=== PATIENT | female | born 1985 | race Caucasian/White ===

== ENCOUNTER 2017-10-02 22:12 | Inpatient (IN) | payer MEDICAID ==
[2017-10-03] MEDS ORDERED: Sodium Chloride 0.9% 10 ML Syringe FLUSH PRN (00:34)
[2017-10-03] MEDS ORDERED: Oxytocin/Lactated Ringers 10 UNIT/1,000 ML BAG IV SCH ×2 (00:45→05:30)
[2017-10-03] MEDS ORDERED: Nalbuphine 20 MG/1 ML Amp IVPUSH PRN (03:10)
[2017-10-03] MEDS ORDERED: Lidocaine 1% 50 ML MDV INJECT ONE (03:10)
[2017-10-03] MEDS ORDERED: Ondansetron 4 MG/2 ML SDV IVPUSH PRN ×2 (03:10→07:42)
[2017-10-03] MEDS: Lactated Ringers 1,000 ML IV SCH ×2 (05:29→13:00)
[2017-10-03] MEDS ORDERED: diphenhydrAMINE 50 MG/ML SDV IVPUSH PRN (07:42)
[2017-10-03] MEDS ORDERED: fentaNYL 100 MCG/2 ML SDV EPIDUR PRN (07:42)
[2017-10-03] MEDS ORDERED: ePHEDrine 50 MG/ML SDV IVPUSH PRN (07:42)
[2017-10-03] MEDS ORDERED: Bupivacaine/fentaNYL/NS 100 ML Bag EPIDUR SCH (07:45)
--- NOTE | 2017-10-03 08:52 | PCM.PREANE ---
Preanesthetic Assessment - Anesthesia/Transfusion/Family Hx Anesthesia History: Prior Anesthesia Without Reaction Family History of Anesthesia Reaction: No Transfusion History: No Prior Transfusion(s) - Review of Systems General: No Symptoms Pulmonary: No Symptoms Cardiovascular: No Symptoms Gastrointestinal: No Symptoms Neurological: No Symptoms Other: Reports: Diabetes (Gestational) - Physical Assessment Pulse: 89 O2 Sat by Pulse Oximetry: 98 Respiratory Rate: 16 Blood Pressure: 131/80 Vital Signs: Last Vital Signs Temp 36.6 C 10/03/17 00:24 Pulse 89 10/03/17 08:34 Resp 16 10/03/17 00:24 BP 131/80 10/03/17 08:34 Pulse Ox 98 10/03/17 00:24 Height: 1.73 m Weight: 101.605 kg ASA Class: 2 Mental Status: Alert & Oriented x3 Airway Class: Mallampati = 2 Dentition: Reports: Normal Dentition Thyro-Mental Finger Breadths: 3 Mouth Opening Finger Breadths: 2 ROM/Head Extension: Full Lungs: Clear to Auscultation, Normal Respiratory Effort Cardiovascular: Regular Rate, Regular Rhythm - Lab Values: Laboratory Last Values WBC 14.74 K/mm3 (3.98-10.04) H 10/03/17 00:35 RBC 4.44 M/mm3 (3.98-5.22) 10/03/17 00:35 Hgb 12.3 gm/L (11.2-15.7) 18 00:35 Hct 37.3 % (34.1-44.9) 10/03/17 00:35 MCV 84.0 fl (79.4-94.8) 10/03/17 00:35 MCH 27.7 pg (25.6-32.2) 10/03/17 00:35 MCHC 33.0 g/dl (32.2-35.5) 10/03/17 00:35 RDW Std Deviation 44.1 fL (36.4-46.3) 10/03/17 00:35 Plt Count 275 K/mm3 (182-369) 10/03/17 00:35 MPV 10.4 fl (9.4-12.3) 10/03/17 00:35 Neut % (Auto) 76.5 % (34.0-71.1) H 10/03/17 00:35 Lymph % (Auto) 15.0 % (19.3-51.7) L 10/03/17 00:35 Leake % (Auto) 7.3 % (4.7-12.5) 10/03/17 00:35 Eos % (Auto) 0.5 (0.7-5.8) L 10/03/17 00:35 Baso % (Auto) 0.1 % (0.1-1.2) 10/03/17 00:35 Neut # (Auto) 11.27 K/mm3 (1.56-6.13) H 10/03/17 00:35 Lymph # (Auto) 2.21 K/mm3 (1.18-3.74) 10/03/17 00:35 Leake # (Auto) 1.08 K/mm3 (0.24-0.36) H 10/03/17 00:35 Eos # (Auto) 0.07 K/mm3 (0.04-0.36) 10/03/17 00:35 Baso # (Auto) 0.02 K/mm3 (0.01-0.08) 10/03/17 00:35 BUN 10 mg/dL (7-18) 10/03/17 00:35 Creatinine 0.7 mg/dL (0.55-1.02) 10/03/17 00:35 Est Cr Clr Drug Dosing 116.39 mL/min 10/03/17 00:35 Estimated GFR (MDRD) > 60 mL/min (>60) 10/03/17 00:35 Glucose 84 mg/dL (74-106) 10/03/17 00:35 Uric Acid 3.7 mg/dL (2.6-6.0) 10/03/17 00:35 AST 12 U/L (15-37) L 10/03/17 00:35 ALT 18 U/L (14-59) 10/03/17 00:35 Lactate Dehydrogenase 154 U/L (81-234) 10/03/17 00:35 Urine Color Yellow (Yellow) 10/03/17 04:30 Urine Appearance Clear (Clear) 10/03/17 04:30 Urine pH 6.0 (5.0-8.0) 10/03/17 04:30 Ur Specific [place] 1.010 (1.005-1.030) 10/03/17 04:30 Urine Protein Negative (Negative) 10/03/17 04:30 Urine Glucose (UA) Negative (Negative) 10/03/17 04:30 Urine Ketones Negative (Negative) 10/03/17 04:30 Urine Occult Blood Negative (Negative) 10/03/17 04:30 Urine Nitrite Negative (Negative) 10/03/17 04:30 Urine Bilirubin Negative (Negative) 10/03/17 04:30 Urine Urobilinogen 0.2 (0.2-1.0) 10/03/17 04:30 Ur Leukocyte Esterase Negative (Negative) 10/03/17 04:30 Urine RBC 0-5 /hpf (0-5) 10/03/17 04:30 Urine WBC 0-5 /hpf (0-5) 10/03/17 04:30 Ur Epithelial Cells 0-5 /hpf (0-5) 10/03/17 04:30 Amorphous Sediment Few /hpf (NOT SEEN) H 10/03/17 04:30 Urine Bacteria Few /hpf (FEW) 10/03/17 04:30 Urine Mucus Not seen /hpf (FEW) 10/03/17 04:30 Blood Type A POSITIVE 10/03/17 00:35 Gel Antibody Screen Negative 10/03/17 00:35 - Allergies Allergies/Adverse Reactions: Allergies Allergy/AdvReac Type Severity Reaction Status Date / Time No Known Allergies Allergy Verified 10/03/17 00:23 - Acknowledgements Anesthesia Type Planned: Epidural Pt an Appropriate Candidate for the Planned Anesthesia: Yes Alternatives and Risks of Anesthesia Discussed w Pt/Guardian: Yes Pt/Guardian Understands and Agrees with Anesthesia Plan: Yes PreAnesthesia Questionnaire HEENT History: Reports: Impaired Vision LEAVE SPECIALIST History: Reports: Endocrine/Metabolic History: Reports: Diabetes, Gestational - Past Surgical History Other HEENT Surgeries/Procedures: Pt wears Glasses Other Cardiovascular Surgeries/Procedures: Gestational HTN Other GI Surgeries/Procedures: Pt has had Polyps removed from her intestines in 2015 Endocrine Surgical History: Reports: None - SUBSTANCE USE Smoking Status *Q: Never Smoker Second Hand Smoke Exposure: No Recreational Drug Use History: No - HOME MEDS Home Medications: Home Meds Aspirin 81 mg PO DAILY 10/03/17 [History] Nph, Human Insulin Isophane [HumuLIN N] 10 unit SQ ACBREAKFASTANDBED 10/03/17 [ History] PNV95/Ferrous Fumarate/FA [Prenavite Tablet] 1 each PO DAILY 10/03/17 [History] - CURRENT (IN HOUSE) MEDS Current Meds: Current Medications Diphenhydramine HCl (Benadryl) 25 mg IVPUSH Q6H PRN PRN Reason: Pruritis Ephedrine Sulfate (Ephedrine Sulfate) 5 mg IVPUSH ASDIRECTED PRN PRN Reason: Hypotension Fentanyl (Sublimaze) 100 mcg EPIDUR ONETIME PRN PRN Reason: Pain Fentanyl/Bupivacaine HCl (Fentanyl/Bupivacaine/Ns 2 Mcg-0.125% 100 Ml) 100 ml EPIDUR ASDIRECTED [place] Lactated Ringer's (Ringers, Lactated) 1,000 mls @ 100 mls/hr IV ASDIRECTED [place] Last Admin: 10/03/17 05:29 Dose: 100 mls/hr Oxytocin/Lactated Ringer's (Pitocin In Lr 10 Units/1,000 Ml) 10 unit in 1,000 mls @ 500 mls/hr IV .CONTINUOUS [place] Oxytocin/Lactated Ringer's (Pitocin In Lr 10 Units/1,000 Ml) 10 unit in 1,000 mls @ 12 mls/hr IV TITRATE [place]; 2 MUNITS/MIN PRN Reason: Protocol Last Titration: 10/03/17 08:39 Dose: 10 munits/min, 60 mls/hr Nalbuphine HCl (Nubain) 10 mg IVPUSH Q2H PRN PRN Reason: Pain (moderate 4-6) Ondansetron HCl (Zofran) 4 mg IVPUSH Q4H PRN PRN Reason: Nausea/Vomiting Ondansetron HCl (Zofran) 4 mg IVPUSH ONETIME PRN PRN Reason: Nausea/Vomiting Sodium Chloride (Saline Flush) 10 ml FLUSH ASDIRECTED PRN PRN Reason: Keep Vein Open Discontinued Medications Lidocaine HCl (Xylocaine 1%) 1 ml INJECT ONETIME ONE Stop: 10/03/17 03:11
--- NOTE | 2017-10-03 15:41 | PCM.SN ---
- Free Text/Narrative Note: Lisbeth is a 32-year-old 2 para 2002 white female who is admitted last night with a 37-6/7 week intrauterine , hypertension, labor, gestational diabetes treated with instrument 1 and history of previous section. She is a patient of Dr. Seth in [place] but is living in [place]. She decided to stay here for her labor and delivery as her doctor was not conventional mortgage underwriter in [place] and living in [place] worked better for her. She lives with her mother here in [place]. Came in with concerns of contractions and labor. Upon admission she was noted to have blood pressures in the 160s over 95-105 range. Laboratory testing was unremarkable for preeclampsia. Diagnosis is most probably gestational hypertension. Blood sugar was 84. Patient progressed slowly through labor she had artificial rupture membranes as a.m. and progressed to complete by approximately 1400 hrs. She had an epidural in place for labor analgesia. She pushed for approximately an hour and at 1510 hrs. on 10/03/2017 she delivered a viable, valencia, female infant with Apgars of 8 and 9, a weight of 2490 g (6 lbs. 8 oz.), a length of 19 inches, in a direct occiput anterior position. This placed on mom's abdomen and the bulb suction. The cord was clamped 2 and cut by the patient's mother. She had Pitocin given IV after delivery of the baby to facilitate increase and reduce risk of uterine bleeding. The patient had a second-degree laceration which was repaired in a routine fashion using 3-0 Monocryl. Epidural was used for anesthesia. Placenta delivered in a Toure presentation, appeared intact and complete and was discarded per patient desire. Estimated blood loss was 200 mL. Condition: Good. Patient plans to breast-feed.
[2017-10-03] MEDS ORDERED: Benzocaine/Menthol 20%-0.5% Spray 56 GM Canister TOP PRN (17:45)
[2017-10-03] MEDS ORDERED: Acetaminophen 325 MG Tab PO PRN (17:45)
[2017-10-03] MEDS ORDERED: Lanolin 100% Cream 7 GM Tube TOP PRN (17:45)
[2017-10-03] MEDS ORDERED: Witch Hazel Medicated Pads 100/Jar TOP PRN (17:45)
[2017-10-03] MEDS ORDERED: Docusate Sodium 100 MG Cap PO PRN (17:45)
[2017-10-03] MEDS: Ibuprofen 600 MG Tab PO PRN (20:57)
--- NOTE | 2017-10-04 08:22 | PCM.SN ---
- Free Text/Narrative Note: Subjective: Patient reports her pain is well controlled this AM. She is able to void and ambulate without assistance. Objective: Patient is afebrile this AM, her vital signs are stable and the uterus is slightly below the level of the umbilicus Assessment: Post- day 1 Plan: Routine care will be provided and an Hemoglobin level will be taken later today.
[2017-10-04] MEDS: Prenatal Multivitamin with Calcium/Folic Acid/Iron Tab PO SCH (09:24)
--- NOTE | 2017-10-04 15:22 | PCM48HPAN ---
Post Anesthesia Note - EVALUATION WITHIN 48HRS OF ANESTHETIC Vital Signs in Normal Range: Yes Patient Participated in Evaluation: Yes Respiratory Function Stable: Yes Airway Patent: Yes Cardiovascular Function Stable: Yes Hydration Status Stable: Yes Pain Control Satisfactory: Yes Nausea and Vomiting Control Satisfactory: Yes Mental Status Recovered: Yes Pulse Rate: 88 Resp Rate: 16 Temperature: 37.3 C Blood Pressure: 137/93
[2017-10-04] MEDS: Ibuprofen 600 MG Tab PO PRN (21:17)
--- NOTE | 2017-10-05 04:38 | PCM.DCSUM1 ---
Discharge Summary - Hospital Course Free Text/Narrative:: Lisbeth is a 32-year-old 2 para 2002 white female who is admitted last night with a 37-6/7 week intrauterine , hypertension, labor, gestational diabetes treated with instrument 1 and history of previous section. She is a patient of Dr. Seth in [place] but is living in [place]. She decided to stay here for her labor and delivery as her doctor was not industrial relations officer in [place] and living in [place] worked better for her. She lives with her mother here in [place]. Came in with concerns of contractions and labor. Upon admission she was noted to have blood pressures in the 160s over 95-105 range. Laboratory testing was unremarkable for preeclampsia. Diagnosis is most probably gestational hypertension. Blood sugar was 84. Patient progressed slowly through labor she had artificial rupture membranes as a.m. and progressed to complete by approximately 1400 hrs. She had an epidural in place for labor analgesia. She pushed for approximately an hour and at 1510 hrs. on 10/03/2017 she delivered a viable, valencia, female infant with Apgars of 8 and 9, a weight of 2490 g (6 lbs. 8 oz.), a length of 19 inches, in a direct occiput anterior position. This placed on mom's abdomen and the bulb suction. The cord was clamped 2 and cut by the patient's mother. She had Pitocin given IV after delivery of the baby to facilitate increase and reduce risk of uterine bleeding. The patient had a second-degree laceration which was repaired in a routine fashion using 3-0 Monocryl. Epidural was used for anesthesia. Placenta delivered in a Toure presentation, appeared intact and complete and was discarded per patient desire. Estimated blood loss was 200 mL. Patient plans to breast-feed. patient is done reasonably well. She is nursing without problems, voiding well and ambulating well. senior director creative services consult was obtained because of patient's social situation. She is discharged home today per her desire. - Discharge Data Discharge Date: 10/05/17 Discharge Disposition: DC/[facility] Condition: Good - Patient Instructions Diet: Regular Diet as Tolerated (Nursing diet with increased calcium and calories as directed.) Activity: As Tolerated (No intercourse or tampons until bleeding resolves) Driving: May Drive Today Showering/Bathing: May Shower (May take a bath) Notify Provider of: Fever, Increased Pain, Swelling and Redness, Nausea and/or Vomiting - Discharge Plan Home Medications: Home Meds Aspirin 81 mg PO DAILY 10/03/17 [History] Nph, Human Insulin Isophane [HumuLIN N] 10 unit SQ ACBREAKFASTANDBED 10/03/17 [ History] PNV95/Ferrous Fumarate/FA [Prenavite Tablet] 1 each PO DAILY 10/03/17 [History] Acetaminophen [Tylenol] 650 mg PO Q4H PRN tablet 10/05/17 [Rx] Ibuprofen [IJD: Ibuprofen] 600 mg PO Q4H PRN tablet 10/05/17 [Rx] Referrals: Yee Shah MD [Ordering Only Provider] - (Return to clinicDr. shah2 weekspatient to make an appointment.) - Discharge Summary/Plan Comment DC Time >30 min.: No Discharge Summary/Plan Comment: Discharge instructions: 1. Discharge home 2. Diet, activity and follow-up discussed with patient. Recommend nursing diet with increased calories and calcium. 3. Precautions given concern increased pain, bleeding, temperature, signs/ symptoms of DVT/PE. 4. Medications per home medication was printed, discussed with and given to the patient. 5. Return to clinic-Dr. [id number] in 2 weeks. Diagnosis: Term -delivered, history of previous section Condition: Good - Patient Data Vitals - Most Recent: Last Vital Signs Temp 36.7 C 10/04/17 20:40 Pulse 84 10/04/17 20:40 Resp 14 10/04/17 20:40 BP 141/87 H 10/04/17 20:40 Pulse Ox 100 10/04/17 20:40 Weight - Most Recent: 101.605 kg I&O - Last 24 hours: Intake & Output 10/04/17 10/04/17 10/05/17 14:59 22:59 06:59 Intake Total 120 60 Output Total 1 Balance 119 60 Lab Results - Last 24 hrs: Laboratory Results - last 24 hr 10/04/17 Range/Units 15:40 WBC 10.22 H (3.98-10.04) K/mm3 RBC 3.93 L (3.98-5.22) M/mm3 Hgb 11.0 L (11.2-15.7) gm/L Hct 33.9 L (34.1-44.9) % MCV 86.3 (79.4-94.8) fl MCH 28.0 (25.6-32.2) pg MCHC 32.4 (32.2-35.5) g/dl RDW Std Deviation 46.6 H (36.4-46.3) fL Plt Count 247 (182-369) K/mm3 MPV 10.1 (9.4-12.3) fl Med Orders - Current: Current Medications Acetaminophen (Tylenol) 650 mg PO Q4H PRN PRN Reason: mild pain or fever Benzocaine/Menthol (Dermoplast Pain Relief [place]) 0 gm TOP ASDIRECTED PRN PRN Reason: Perineal Comfort Measure Docusate Sodium (Colace) 100 mg PO BID PRN PRN Reason: Constipation Emollient Ointment (Lansinoh Hpa) 0 gm TOP ASDIRECTED PRN PRN Reason: Sore Nipples Ibuprofen (Motrin) 600 mg PO Q4H PRN PRN Reason: Mild pain or fever Last Admin: 10/04/17 21:17 Dose: 600 mg Prenat Multivit/[place]/Iron/Folic Ac ( Plus Iron) 1 each PO DAILY [facility] Last Admin: 10/04/17 09:24 Dose: 1 each Witch Maryann (Tucks) 1 pad TOP ASDIRECTED PRN PRN Reason: Hemorrhoid pain Discontinued Medications Diphenhydramine HCl (Benadryl) 25 mg IVPUSH Q6H PRN PRN Reason: Pruritis Ephedrine Sulfate (Ephedrine Sulfate) 5 mg IVPUSH ASDIRECTED PRN PRN Reason: Hypotension Fentanyl (Sublimaze) 100 mcg EPIDUR ONETIME PRN PRN Reason: Pain Last Admin: 10/03/17 13:08 Dose: 100 mcg Fentanyl/Bupivacaine HCl (Fentanyl/Bupivacaine/Ns 2 Mcg-0.125% 100 Ml) 100 ml EPIDUR ASDIRECTED [facility] Last Admin: 10/03/17 13:08 Dose: 100 ml Lactated Ringer's (Ringers, Lactated) 1,000 mls @ 100 mls/hr IV ASDIRECTED [facility] Last Admin: 10/03/17 13:00 Dose: 125 mls/hr Oxytocin/Lactated Ringer's (Pitocin In Lr 10 Units/1,000 Ml) 10 unit in 1,000 mls @ 500 mls/hr IV .CONTINUOUS [place] Oxytocin/Lactated Ringer's (Pitocin In Lr 10 Units/1,000 Ml) 10 unit in 1,000 mls @ 12 mls/hr IV TITRATE [place]; 2 MUNITS/MIN PRN Reason: Protocol Last Titration: 10/03/17 10:05 Dose: 12 munits/min, 72 mls/hr Lidocaine HCl (Xylocaine 1%) 1 ml INJECT ONETIME ONE Stop: 10/03/17 03:11 Nalbuphine HCl (Nubain) 10 mg IVPUSH Q2H PRN PRN Reason: Pain (moderate 4-6) Ondansetron HCl (Zofran) 4 mg IVPUSH Q4H PRN PRN Reason: Nausea/Vomiting Ondansetron HCl (Zofran) 4 mg IVPUSH ONETIME PRN PRN Reason: Nausea/Vomiting Sodium Chloride (Saline Flush) 10 ml FLUSH ASDIRECTED PRN PRN Reason: Keep Vein Open *Q Meaningful Use (DIS) - VTE *Q VTE Criteria *Q: - Stroke *Q Stroke Criteria *Q: - AMI *Q AMI Criteria *Q:
--- NOTE | 2017-10-05 07:42 | HP ---
DATE OF ADMISSION: 10/02/2017 CHIEF COMPLAINT: A 37 and 6/7th week intrauterine , contractions. HISTORY OF PRESENT ILLNESS: The patient is a 32-year-old 2, para 1-0-0-1 white female who is at 37 and 6/7th weeks, TAMI of 10/18/2017, who was admitted for evaluation for reported contractions. She receives her care from Dr. Yee Shah, P[facility] in [place]. She however lives with her mother here because she was not able to afford housing in [place]. She has continued to receive her care there. She began mandeep at approximately 2000 hours on 10/02/2017. Contractions have progressed and they are continued at approximately every 3 to 4 minutes at this point, moderate in intensity. Her cervix has changed from 1 cm to 2 cm/70% effaced/soft/-3/midposition with baby in vertex presentation. She was 1-cm on last clinic evaluation 4 days ago. heart tones are reassuring. She is noted upon admission to have elevated blood pressures that are in the 150s to 166 range systolically over mid 90s to 106 range diastolically. She has a known history of hypertension in last , which is why she was induced. Her last resulted in a section for [id number] after pushing for sometime. Baby weighed 7 pounds, 12 ounces. She is also gestational diabetic with this being diet-controlled until approximately 2 weeks ago; at which time, she was started on insulin once a day increased to twice a day consisting of Humulin NPH 10 units subcu twice daily. She has also been on baby aspirin daily for preeclampsia prophylaxis. She took her last dose approximately 48 hours ago. Her weight gain has been approximately 20 pounds over the course of the . She is carrying a baby girl. The patient is desiring to and plans were to be with spontaneous labor. She does have scheduled for her due date if she had not gone into labor by that time. Her course has not been complicated by headaches, vision changes, right upper abdominal pain, significant swelling, or other signs and symptoms of preeclampsia. LABORATORY DATA: White count is 14.74, her hemoglobin is 12.3, hematocrit is 37.3, her platelet count is normal at 275,000. Chemistry profile shows a creatinine of 0.7, which is normal, uric acid is 3.7, AST is 12, ALT is 18. Blood sugar is 84. labs show blood to be A+ with negative antibody screen. Initial hemoglobin was 13.9 and initial platelet count was 325. Her 1-hour GTT was 242 and 3-hour GTT was abnormal. Second trimester hemoglobin was 12.1 and platelets were 249. Her group B strep screen was negative. Her chlamydia and gonorrhea assays were both negative. Rubella status unknown and VDRL unknown. PAST MEDICAL HISTORY: 1. Right ankle fracture 3 years ago with casting-no residual effects. 2. Hypertension with last . PAST SURGICAL HISTORY: , which was low-transverse uterine segment type incision-done for failure to progress-7 pounds, 12 ounces . CURRENT MEDICATIONS: 1. vitamins daily. 2. Baby aspirin-81 mg daily. 3. Insulin 10 units Humulin NPH b.i.d. ALLERGIES: None. FAMILY HISTORY: Father is alive, has adult-onset diabetes, which is diet-controlled. Mother has had a history of breast cancer. Three brothers and 1 sister are alive and well. Maternal grandfather is alive and has high blood pressure. Maternal grandmother is alive, has had a history of breast cancer. Paternal grandfather is , secondary to pneumonia in his 80s. Paternal grandmother is alive and reasonably healthy. One maternal uncle with history of kidney cancer. SOCIAL HISTORY: The patient is single, lives with her mom here in [place]. She does not use any significant alcohol, drugs, or tobacco. 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 REVIEW OF SYSTEMS: GENERAL: The patient has no major concerns. She is reporting good activity, but is somewhat uncomfortable with contractions, which are progressive in nature. Denies any headaches, vision problems, or other symptoms of preeclampsia. SKIN: Negative. CARDIOVASCULAR: No chest pain or exercise intolerance. RESPIRATORY: No shortness of breath or infectious symptoms. BREASTS: Changes associated with only. The patient does plan to breastfeed. GI: Negative. : Protuberant abdomen, secondary to and contractions as reported above. NEUROLOGICAL: Negative. MUSCULOSKELETAL: Negative. PHYSICAL EXAMINATION: VITAL SIGNS: Blood pressure is as above. GENERAL: The patient is a well-developed, well-nourished, overweight white female with a weight of approximately 240 pounds who is alert, oriented x3 and appears to be stated age. She is pleasant. SKIN: Warm and dry without lesions. HEENT, NECK, AND BACK: Within normal limits. LUNGS: Clear with good breath sounds in all lung syed. CARDIOVASCULAR: Regular rate and rhythm. BREAST: Deferred. ABDOMEN: Protuberant with with fundal height of 39.5 cm. Baby in vertex presentation by Diego maneuvers supported by cervical diagnosis, which shows baby to be head down. Cervix is 2 cm, 70% effaced, soft, -3 station, midposition, vertex presentation, bag of cote intact. EXTREMITIES: Minimal edema otherwise unremarkable. NEUROLOGICAL: Normal deep tendon reflexes 1/4 bilaterally in upper and lower extremities. ASSESSMENT: 1. Thirty-seven and 6/7th week intrauterine in what appears to be early labor with some cervical change by 2 different evaluators over the course of the last 4 days. 2. Hypertension with normal labs and normal neurological evaluation with no symptoms of preeclampsia, most probably consistent with gestational hypertension. 3. Gestational diabetes, diet-controlled until approximately 2 weeks ago at which time insulin was started-has been on Humulin NPH 10 units subcu twice daily. 4. Baby has been on baby aspirin until 24 to 48 hours ago for preeclampsia prophylaxis. 5. History of section done for [id number] after pushing times approximately 2 hours last . Baby weighed 7 pounds, 12 ounces. The patient wishes to vaginal after caesarean section. I feel she is a candidate for vaginal after Caesarean section. 6. The patient plans to breastfeed. 7. The patient is okay with epidural. PLAN: 1. Admit and monitor labor. We will attempt vaginal after section and a trial of labor after section. The process, procedure, risks, benefits, limitations, possible inability to deliver vaginally, possible increased risk of shoulder dystocia associated with gestational diabetes, and possible risks of section all discussed with the patient. She wishes to proceed. She has apparently signed a consent, which is not included with her chart here in [place]. She is interested in proceeding and understands the process. 2. Consent for and consent for section signed. 3. labs performed. 4. IV access obtained. 5. We will inform anesthesia and surgery that candidate is in the house. 6. Labor analgesia with epidural if the patient desires. 7. Encouraged nursing after delivery. 8. Obtain VDRL and rubella status. 9. We will monitor blood pressure closely, if persistently above 160/100, we will proceed with labetalol therapy. MMODAL /[id number]
[2017-10-05] MEDS: Prenatal Multivitamin with Calcium/Folic Acid/Iron Tab PO SCH (09:27)
[2017-10-05] MEDS: Ibuprofen 600 MG Tab PO PRN (09:27)
[2017-10-05] MEDS ORDERED: Measles, Mumps & Rubella Vaccine 0.5 ML SDV SUBCUT ONE (14:08)
== END 2017-10-05 15:49 | DRG 775 ==
LOC: JD.OB 22:12 → JD.OBCHECK 22:12 → JD.OB 10-03 00:24 → OBSVTOIN 10-03 15:10
PROVIDERS: ADMIT Obstetrics & Gynecology; ATTEND Obstetrics & Gynecology
PROC: 10E0XZZ Delivery of Products of Conception, External Approach (ICD-10-PCS; principal; 2017-10-03)
PROC: 0KQM0ZZ Repair Perineum Muscle, Open Approach (ICD-10-PCS; 2017-10-03)
PROC: 10907ZC Drainage of Amniotic Fluid, Therapeutic from Products of Conception, Via Natural or Artificial Opening (ICD-10-PCS; 2017-10-03)
PROC: 00HU33Z Insertion of Infusion Device into Spinal Canal, Percutaneous Approach (ICD-10-PCS; 2017-10-03)
PROC: 3E0R3BZ Introduction of Anesthetic Agent into Spinal Canal, Percutaneous Approach (ICD-10-PCS; 2017-10-03)
DX: O13.4 Gestational [pregnancy-induced] hypertension without significant proteinuria, complicating childbirth (principal); O34.211 Maternal care for low transverse scar from previous cesarean delivery; O24.424 Gestational diabetes mellitus in childbirth, insulin controlled; O70.1 Second degree perineal laceration during delivery; Z3A.37 37 weeks gestation of pregnancy; Z37.0 Single live birth; Z79.82 Long term (current) use of aspirin
CPT/HCPCS: 36415; 51702; 59300; 59409; 81001; 82565; 82947; 83615; 84450; 84460; 84520; 84550; 85025; 85027; 86850; 86900; 86901; 90471; 90707; A9270-GY; J2590; J3010; J7120

== ENCOUNTER 2017-11-02 11:18 | Emergency (ER) | payer MEDICAID ==
[2017-11-02] MEDS ORDERED: Ondansetron 4 MG/2 ML SDV IVPUSH ONE (11:52)
[2017-11-02] MEDS ORDERED: fentaNYL 100 MCG/2 ML SDV IVPUSH ONE (11:52)
[2017-11-02] MEDS ORDERED: Sodium Chloride 0.9% 1,000 ML IV ONE (11:52)
--- NOTE | 2017-11-02 11:56 | EDM.PDOC ---
ED HPI GENERAL MEDICAL PROBLEM - General Chief Complaint: Abdominal Pain Stated Complaint: CHEST PAIN Time Seen by Provider: 11/02/17 11:44 Source of Information: Reports: Patient History Limitations: Reports: No Limitations - History of Present Illness INITIAL COMMENTS - FREE TEXT/NARRATIVE: 32-year-old female presents for evaluation and treatment of back pain and epigastric pain. Patient reports around 500 this morning she experienced back pain in between her shoulder blades. She states that it moved into the epigastric area and into her chest. She reports associated symptoms of nausea and vomiting. No diarrhea. No fevers or chills. Last intake was around 0900 last night. She states that she had some rice, shrimp, sausage, chicken and vegetables. States she's never had anything like this before. Has a history of heartburn and occasionally takes Tums. No previous surgeries to her abdomen other than a . Gave about 3 months ago delivery. Patient is also being treated for shingles. She's had she notes her last 2 or 3 weeks to the left flank. There are currently crusted over. 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) Other Treatments IMAGE PROCESSING ENGINEER: pepto Upper Abdomen Pain Score (Numeric/FACES): 9 - Related Data Allergies Allergy/AdvReac Type Severity Reaction Status Date / Time No Known Allergies Allergy Verified 10/03/17 00:23 Home Meds: Home Meds Acyclovir [Zovirax] 500 mg PO ASDIRECTED 11/02/17 [History] Omeprazole 20 mg PO DAILY #14 cap.sr 11/02/17 [Rx] Ondansetron [Zofran ODT] 4 mg PO Q6H PRN #12 tab.dis 11/02/17 [Rx] Past Medical History HEENT History: Reports: Impaired Vision [employer]CR[employer]ARY [employer] History: Reports: , 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) Other OB/BYN History: gestational diabetes Endocrine/Metabolic History: Reports: Diabetes, Gestational - Past Surgical History Other HEENT Surgeries/Procedures: Pt wears Glasses Other Cardiovascular Surgeries/Procedures: Gestational HTN Other GI Surgeries/Procedures: Pt has had Polyps removed from her intestines in 2014 Endocrine Surgical History: Reports: None Social & Family History - Family History Family Medical History: Noncontributory - Tobacco Use Smoking Status *Q: Never Smoker Second Hand Smoke Exposure: No - Caffeine Use Caffeine Use: Reports: Coffee, Energy Drinks - Recreational Drug Use Recreational Drug Use: No ED ROS GENERAL - Review of Systems Review Of Systems: See Below Constitutional: Denies: Fever, Chills GI/Abdominal: Reports: Abdominal Pain (epigastric pain into chest and back in between shoulder), Nausea, Vomiting. Denies: Diarrhea : Reports: No Symptoms ED EXAM, GI/ABD - Physical Exam Exam: See Below Exam Limited By: No Limitations General Appearance: Alert, WD/WN, Moderate Distress, Obese Ears: Normal External Exam Nose: Normal Inspection Throat/Mouth: Normal Inspection, Normal Voice, No Airway Compromise Respiratory/Chest: No Respiratory Distress, Lungs Clear, Normal Breath Sounds, Chest Non-Tender Cardiovascular: Normal Peripheral Pulses, Regular Rate, Rhythm, No Murmur GI/Abdominal Exam: Normal Bowel Sounds, Soft, Tender (Right upper quadrant and epigastric), Other (Negative Cueva sign, negative McBurney's point.). No: Rebound Neurological: Alert, Oriented, Normal Cognition Psychiatric: Normal Affect, Normal Mood Skin Exam: Warm, Dry, Normal Color Course - Vital Signs Last Recorded V/S: Last Vital Signs Temp 36.4 C 11/02/17 11:34 Pulse 92 11/02/17 11:34 Resp 15 11/02/17 11:34 BP 141/94 H 11/02/17 11:34 Pulse Ox 100 11/02/17 11:34 - Orders/Labs/Meds Labs: Laboratory Tests 11/02/17 11/02/17 Range/Units 12:45 12:45 WBC 12.01 H (3.98-10.04) K/mm3 RBC 4.97 (3.98-5.22) M/mm3 Hgb 13.3 (11.2-15.7) gm/L Hct 41.4 (34.1-44.9) % MCV 83.3 (79.4-94.8) fl MCH 26.8 (25.6-32.2) pg MCHC 32.1 L (32.2-35.5) g/dl RDW Std Deviation 41.0 (36.4-46.3) fL Plt Count 297 (182-369) K/mm3 MPV 9.5 (9.4-12.3) fl Neutrophils % (Manual) 82 H (40-60) % Band Neutrophils % 0 (0-10) % Lymphocytes % (Manual) 14 L (20-40) % Atypical Lymphs % 0 % Monocytes % (Manual) 4 (2-10) % Eosinophils % (Manual) 0 L (0.7-5.8) % Basophils % (Manual) 0 L (0.1-1.2) Platelet Estimate Adequate RBC Morph Comment Normal Sodium 139 (136-145) mEq/L Potassium 4.2 (3.5-5.1) mEq/L Chloride 103 (98-107) mEq/L Carbon Dioxide 24 (21-32) mEq/L Anion Gap 16.2 H (5-15) BUN 10 (7-18) mg/dL Creatinine 0.8 (0.55-1.02) mg/dL Est Cr Clr Drug Dosing TNP Estimated GFR (MDRD) > 60 (>60) mL/min BUN/Creatinine Ratio 12.5 L (14-18) Glucose 130 H (74-106) mg/dL Calcium 9.4 (8.5-10.1) mg/dL Total Bilirubin 0.8 (0.2-1.0) mg/dL GGT 25 (5-55) U/L AST 19 (15-37) U/L ALT 39 (14-59) U/L Alkaline Phosphatase 83 (46-116) U/L C-Reactive Protein 0.8 (<1.0) mg/dL Total Protein 8.4 H (6.4-8.2) g/dl Albumin 4.1 (3.4-5.0) g/dl Globulin 4.3 gm/dL Albumin/Globulin Ratio 1.0 (1-2) Lipase 231 (73-393) U/L Meds: Medications Discontinued Medications Generic Name Dose Route Start Last Admin Trade Name Freq PRN Reason Stop Dose Admin Al Hydroxide/Mg Hydroxide 30 0 ml 11/02/17 15:47 11/02/17 16:01 ml/ Lidocaine HCl 15 ml PO 11/02/17 15:48 45 ml ONETIME ONE Administration Famotidine 20 mg 11/02/17 13:51 11/02/17 14:08 Pepcid IVPUSH 11/02/17 13:52 20 mg ONETIME ONE Administration Fentanyl 50 mcg 11/02/17 11:52 11/02/17 12:55 Sublimaze IVPUSH 11/02/17 11:53 50 mcg ONETIME ONE Administration Hydromorphone HCl 0.5 mg 11/02/17 13:52 11/02/17 14:12 Dilaudid IVPUSH 11/02/17 13:53 0.5 mg ONETIME ONE Administration Sodium Chloride 1,000 mls @ 999 mls/hr 11/02/17 11:52 11/02/17 12:54 Normal Saline IV 11/02/17 12:52 999 mls/hr ONETIME ONE Administration Metoclopramide HCl 5 mg 11/02/17 13:52 11/02/17 14:05 Reglan IVPUSH 11/02/17 13:53 5 mg ONETIME ONE Administration Ondansetron HCl 4 mg 11/02/17 11:52 11/02/17 12:54 Zofran IVPUSH 11/02/17 11:53 4 mg ONETIME ONE Administration Sodium Chloride 10 ml 11/02/17 11:52 11/02/17 14:11 Saline Flush FLUSH 10 ml ASDIRECTED PRN Administration Keep Vein Open - Radiology Interpretation Free Text/Narrative:: Limited abdominal ultrasound: Multiple real-time images of the upper right abdomen were obtained. Comparison: No previous abdominal ultrasound, previous abdominal x-ray of is available. Liver shows no focal abnormality. Gallbladder contains no gallstones. No gallbladder wall thickening is seen. No biliary duct dilatation is seen. Right kidney shows no hydronephrosis or mass. Right kidney has a length of 12.8 cm. Pancreas appears within normal limits. Inferior vena cava is patent. Portal vein shows normal hepatopedal flow. Impression: 1. No abnormality is identified on right upper quadrant abdominal ultrasound. Abdomen: Supine and upright views the abdomen were obtained. Comparison: Prior abdominal x-ray of 10/29/12. Bowel gas pattern appears normal. No free air is seen. No abnormal calcifications or discrete soft tissue abnormality is seen. Impression: 1. Nothing acute is seen on 2 view abdominal x-ray - Re-Assessments/Exams Free Text/Narrative Re-Assessment/Exam: 11/02/17 15:54 Pain has improved with medication. No gallstones seen in her gallbladder. She may require HIDA scan to further evaluate this. This could also be something like gastritis and she may have an ulcer. No free air was seen on her abdominal x-ray. We did discuss that she may require an upper endoscopy in the near future. I will have her follow-up with her primary care provider and started her on omeprazole in the meant She is to return to the ER for symptoms change or worsen. Discharge instructions as documented. Departure - Departure Time of Disposition: 15:55 Disposition: Home, Self-Care 01 Condition: Fair Clinical Impression: Gastritis - Discharge Information Prescriptions: Omeprazole 20 mg PO DAILY #14 cap.sr Ondansetron [Zofran ODT] 4 mg PO Q6H PRN #12 tab.dis PRN Reason: Nausea Instructions: Gastritis, Adult, [id number] Referrals: PCP,Not In Area [Primary Care Provider] - Flor Nur MD [Physician] - Forms: ED Department Discharge Additional Instructions: Follow-up with family medicine within 2 weeks for recheck of your symptoms. Recommend Dr. Nur at the [facility]. Call [phone] to schedule with her. Omeprazole 1 cap daily. Zofran 1 tab sublingual every 6 hours as needed for nausea. Clear fluids and a bland diet. May advance to more regular diet as tolerated. Avoid spicy foods and high fatty foods. Please return to the ER if your symptoms change or worsen.
[2017-11-02] MEDS: Sodium Chloride 0.9% 10 ML Syringe FLUSH PRN ×2 (13:43→14:11)
[2017-11-02] MEDS ORDERED: Famotidine 20 MG/2 ML SDV IVPUSH ONE (13:51)
[2017-11-02] MEDS ORDERED: Metoclopramide 10 MG/2 ML SDV IVPUSH ONE (13:52)
[2017-11-02] MEDS ORDERED: HYDROmorphone 0.5 MG/0.5 ML SYRINGE IVPUSH ONE (13:52)
--- NOTE | 2017-11-02 14:58 | US ---
Limited abdominal ultrasound: Multiple real-time images of the upper right abdomen were obtained. Comparison: No previous abdominal ultrasound, previous abdominal x-ray of 10/29/12 is available. Liver shows no focal abnormality. Gallbladder contains no gallstones. No gallbladder wall thickening is seen. No biliary duct dilatation is seen. Right kidney shows no hydronephrosis or mass. Right kidney has a length of 12.8 cm. Pancreas appears within normal limits. Inferior vena cava is patent. Portal vein shows normal hepatopedal flow. Impression: 1. No abnormality is identified on right upper quadrant abdominal ultrasound. Diagnostic code #1
--- NOTE | 2017-11-02 15:38 | CR ---
Abdomen: Supine and upright views the abdomen were obtained. Comparison: Prior abdominal x-ray of 10/29/12. Bowel gas pattern appears normal. No free air is seen. No abnormal calcifications or discrete soft tissue abnormality is seen. Impression: 1. Nothing acute is seen on 2 view abdominal x-ray. Diagnostic code #1
[2017-11-02] MEDS ORDERED: Alum Hydrox/Mag Hydrox/Simeth 30 ML, Lidocaine 2% 15 ML PO ONE ×2 (15:47)
== END 2017-11-02 16:16 | disposition home or self-care (01) ==
LOC: JD.ED 11:18
DX: K29.70 Gastritis, unspecified, without bleeding (principal); Z79.899 Other long term (current) drug therapy
CPT/HCPCS: 36415; 74019; 76705; 80053; 82977; 83690; 85025; 86140; 96361; 96374; 96375; 99285; A9270; J1170; J2405; J2765; J3010; J7040; J7050; 99284

== ENCOUNTER 2017-11-09 16:33 | Emergency (ER) | payer MEDICAID ==
--- NOTE | 2017-11-09 17:31 | EDM.PDOC ---
<Hilary Cole - Last Filed: 11/09/17 18:26> ED HPI GENERAL MEDICAL PROBLEM - General Chief Complaint: Abdominal Pain Stated Complaint: STOMACH PAIN Time Seen by Provider: 11/09/17 17:15 Source of Information: Reports: Patient History Limitations: Reports: No Limitations - History of Present Illness INITIAL COMMENTS - FREE TEXT/NARRATIVE: Patient is a 32 YO female who presents today with RUQ abdominal pain. She was seen in the ER last week. Ultrasound was done and did not show any evidence of gallstones or inflammation. She was placed on omeprazole and was instructed to follow-up with her PCP. She did see her PCP where they tested her for H. pylori which she states was negative. She has been on acyclovir for shingles. She completed one course of acyclovir and is currently on acyclovir again. She states her symptoms improved once she stopped the acyclovir and then the pain returned after restarting. Today, she complains of RUQ abdominal pain that is constant and sharp in nature. She is not aware of anything that makes the pain worse but states she has not eaten today due to the pain. She ate 2 fish sandwiches last night which did not make the pain worse. She reports vomiting once today. She is 1 month but is not currently breast feeding. Her last BM was today which was normal. Denies blood in the stool. She denies fever , cough, shortness of breath, diarrhea or constipation, or headaches. Epigastric Pain Score (Numeric/FACES): 7 - Related Data Allergies Allergy/AdvReac Type Severity Reaction Status Date / Time No Known Allergies Allergy Verified 11/09/17 16:43 Home Meds: Home Meds Acetaminophen/HYDROcodone [[place] 325-5 MG] 1 tab PO Q6H PRN #15 tablet 11/09/17 [Rx] Acyclovir 400 mg PO 5XDAY 11/09/17 [History] Omeprazole 20 mg PO BID 11/09/17 [History] Ondansetron [Zofran ODT] 4 mg PO Q6H PRN #15 tab.dis 11/09/17 [Rx] Potassium Chloride 20 meq PO DAILY 11/09/17 [History] Past Medical History HEENT History: Reports: Impaired Vision Gastrointestinal History: Reports: 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) Other Gastrointestinal History: abdominal pain of unknown cause at this time 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: , 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) Other OB/BYN History: gestational diabetes Endocrine/Metabolic History: Reports: Diabetes, Gestational - Infectious Disease History Infectious Disease History: Reports: Chicken Pox - Past Surgical History Other HEENT Surgeries/Procedures: Pt wears Glasses Other Cardiovascular Surgeries/Procedures: Gestational HTN Other GI Surgeries/Procedures: Pt has had Polyps removed from her intestines in 2014 Endocrine Surgical History: Reports: None Social & Family History - Family History Family Medical History: Noncontributory - Tobacco Use Smoking Status *Q: Never Smoker Second Hand Smoke Exposure: No - Caffeine Use Caffeine Use: Reports: None Other Caffeine Use: very occasional energy drink or coffee - Recreational Drug Use Recreational Drug Use: No ED ROS GENERAL - Review of Systems Review Of Systems: See Below Constitutional: Reports: Decreased Appetite. Denies: Fever HEENT: Reports: No Symptoms Respiratory: Reports: No Symptoms Cardiovascular: Reports: No Symptoms GI/Abdominal: Reports: Abdominal Pain, Decreased Appetite, Nausea, Vomiting. Denies: Bloody Stool, Constipation, Diarrhea Skin: Reports: No Symptoms Neurological: Reports: No Symptoms Psychiatric: Reports: No Symptoms ED EXAM, GI/ABD - Physical Exam Exam: See Below Exam Limited By: No Limitations General Appearance: Alert, WD/WN, No Apparent Distress Throat/Mouth: Normal Inspection, Normal Gums, Normal Oropharynx Respiratory/Chest: No Respiratory Distress, Lungs Clear, Normal Breath Sounds Cardiovascular: Normal Peripheral Pulses, Regular Rate, Rhythm, No Murmur GI/Abdominal Exam: Normal Bowel Sounds, Soft, Tender (RUQ and epigastric pain with positive Cueva's sign) Neurological: Alert, Oriented, CN II-XII Intact, Normal Cognition, No Motor/ Sensory Deficits Psychiatric: Normal Affect, Normal Mood Skin Exam: Warm, Dry, Intact, Normal Color Course - Vital Signs Last Recorded V/S: Last Vital Signs Temp 97.9 F 11/09/17 16:43 Pulse 97 11/09/17 16:43 Resp 18 11/09/17 16:43 BP 155/94 H 11/09/17 16:43 Pulse Ox 97 11/09/17 16:43 - Orders/Labs/Meds Orders: Active Orders 24 hr Category Date Time Status Peripheral IV Care [RC] . DIRECTED Care 11/09/17 18:20 Active Peripheral IV Insertion Adult [OM.PC] Stat Oth 11/09/17 18:20 Ordered Labs: Laboratory Tests 11/09/17 11/09/17 11/09/17 Range/Units 17:50 17:50 17:50 WBC 12.38 H (3.98-10.04) K/mm3 RBC 5.16 (3.98-5.22) M/mm3 Hgb 13.8 (11.2-15.7) gm/L Hct 42.5 (34.1-44.9) % MCV 82.4 (79.4-94.8) fl MCH 26.7 (25.6-32.2) pg MCHC 32.5 (32.2-35.5) g/dl RDW Std Deviation 41.0 (36.4-46.3) fL Plt Count 328 (182-369) K/mm3 MPV 9.4 (9.4-12.3) fl Neutrophils % (Manual) 84 H (40-60) % Band Neutrophils % 0 (0-10) % Lymphocytes % (Manual) 16 L (20-40) % Atypical Lymphs % 0 % Monocytes % (Manual) 0 L (2-10) % Eosinophils % (Manual) 0 L (0.7-5.8) % Basophils % (Manual) 0 L (0.1-1.2) Platelet Estimate Adequate Plt Morphology Comment Normal RBC Morph Comment Normal Sodium 137 (136-145) mEq/L Potassium 3.9 (3.5-5.1) mEq/L Chloride 100 (98-107) mEq/L Carbon Dioxide 23 (21-32) mEq/L Anion Gap 17.9 H (5-15) BUN 6 L (7-18) mg/dL Creatinine 0.7 (0.55-1.02) mg/dL Est Cr Clr Drug Dosing 116.39 mL/min Estimated GFR (MDRD) > 60 (>60) mL/min BUN/Creatinine Ratio 8.6 L (14-18) Glucose 119 H (74-106) mg/dL Calcium 9.5 (8.5-10.1) mg/dL Total Bilirubin 2.4 H (0.2-1.0) mg/dL Direct Bilirubin 1.00 H (0.0-0.2) mg/dl GGT 1087 H (5-55) U/L AST 229 H (15-37) U/L ALT 190 H (14-59) U/L Alkaline Phosphatase 297 H (46-116) U/L C-Reactive Protein 3.1 H* (<1.0) mg/dL Total Protein 8.6 H (6.4-8.2) g/dl Albumin 4.0 (3.4-5.0) g/dl Globulin 4.6 gm/dL Albumin/Globulin Ratio 0.9 L (1-2) Lipase 235 (73-393) U/L Meds: Medications Discontinued Medications Generic Name Dose Route Start Last Admin Trade Name Freq PRN Reason Stop Dose Admin Hydromorphone HCl 0.5 mg 11/09/17 17:42 11/09/17 18:49 Dilaudid IVPUSH 11/09/17 17:43 0.5 mg ONETIME ONE Administration Sodium Chloride 1,000 mls @ 250 mls/hr 11/09/17 18:33 11/09/17 18:40 Normal Saline IV 11/09/17 22:32 250 mls/hr ASDIRECTED ONE Administration Ondansetron HCl 4 mg 11/09/17 17:42 11/09/17 18:40 Zofran IVPUSH 11/09/17 17:43 4 mg ONETIME ONE Administration Sodium Chloride 10 ml 11/09/17 18:20 11/09/17 18:44 Saline Flush FLUSH 10 ml ASDIRECTED PRN Administration Keep Vein Open - Re-Assessments/Exams Free Text/Narrative Re-Assessment/Exam: 11/09/17 18:02 When reviewing her previous visit to the ER on 11/02/2017 patient had labs which showed an elevated WBC 12.01 with 84% neutrophils. Remainder of the CBC normal. CMP showed elevated glucose of 130. AST 19, ALT 39, Alkaline phos 83 and CRP 0.8. Abdominal US showed no acute findings. Labs today have been ordered to include CBC, CMP, lipase and CRP. Dilaudid 0.5 mg for pain and Zofran 4 mg for nausea. 11/09/17 18:26 Labs today show anion gap 17.9, BUN 6, Cr 0.7, Glucose 119, Total bilirubin 2.4 , AST 229, ALT 190, Alk phos 297, CRP 3.1, Total protein 8.6. These labs are elevated from labs last week therefore RUQ abdominal US has been ordered. Departure - Departure Disposition: Home, Self-Care 01 Clinical Impression: Acalculous cholecystitis, Cholecystitis - Discharge Information Prescriptions: Acetaminophen/HYDROcodone [[place] 325-5 MG] 1 tab PO Q6H PRN #15 tablet PRN Reason: Pain (Severe 7-10) Ondansetron [Zofran ODT] 4 mg PO Q6H PRN #15 tab.dis PRN Reason: Nausea/Vomiting Instructions: Nausea and Vomiting, Adult, [id number], Abdominal Pain, Adult, [id number], Low-Fat Diet for Pancreatitis or Gallbladder Conditions, Pain Medicine Instructions, [id number], Cholecystitis Referrals: Baljinder Otero PA-C [Primary Care Provider] - Forms: ED Department Discharge Additional Instructions: MRCP will be conducted an outpatient basis. They will call you for appointment time. In the meantime please make an appointment with her primary care provider for for results of MRCP. Suspect this will be conducted tomorrow or Thursday. I just appointment time accordingly. The [place] one tab every 6 hours as needed for discomfort. Take Zofran 1 tablet every 6 hours for nausea vomiting as needed. Do not drive this evening and/or while taking the [place]. Stick with a low residue diet. Please read discharge instructions provided for diaphoretic gallbladder issues. Please return to the ED if you develop any new or worsening symptoms as discussed. <Jean-Paul Cruz O - Last Filed: 11/10/17 15:19> Course - Re-Assessments/Exams Free Text/Narrative Re-Assessment/Exam: I have personally examined the patient and agree with findings by Hilary Cole. Patient has positive cueva sign with elevated LFTS with WNL lipase. GGT and direct bilirubin ordered. Ultrasound revealed acalculus cholecystitis. Patient's pain is well-controlled and nausea has subsided. She has minimal pain on examination. I spoke with Dr. Aguilera at 2002. Suggested a MRCP conducted outpatient basis follow-up with PCP for results and disposition plan of thereafter. Dr. Aguilera believes stone maybe within the common bile duct. I informed him GGT and Direct bilirubin have been ordered. GGT elevated 1087 with Direct bilirubin elevated at 1.0. I have asked Kota with Radiology to look into an appointment for MRCP tomorrow. There was a opening at 730 am. Requests NPO after midnight. He will obtain MRI questionnaire. Attempted to call the Patient twice at both numbers provided. The [phone] number goes to her voicemail. Message was left to call me back. The [phone] is not a valid number. 11/10/17 15:17 MRI abdomen without contrast impression: Distended gallbladder with gallbladder wall thickening and minimal pericholecystic fluid. No biliary duct dilatation is seen. Distal common bile duct not well seen but no filling defects are is identified within the common bile duct into gait stone. Acute acalculous cholecystitis is still within the differential. HIDA scan with ejection fraction as previously mentioned could be considered to further evaluate. I have contacted the patient and should results of the MRI. She has an appointment with PCP scheduled for tomorrow. They will discuss obtaining HIDA scan at that point. Return precautions discussed with the patient again. She voiced understanding. Departure - Departure Time of Disposition: 20:15
[2017-11-09] MEDS ORDERED: Ondansetron 4 MG/2 ML SDV IVPUSH ONE (17:42)
[2017-11-09] MEDS ORDERED: HYDROmorphone 0.5 MG/0.5 ML SYRINGE IVPUSH ONE (17:42)
[2017-11-09] MEDS ORDERED: Sodium Chloride 0.9% 10 ML Syringe FLUSH PRN (18:20)
[2017-11-09] MEDS ORDERED: Sodium Chloride 0.9% 1,000 ML IV ONE (18:33)
--- NOTE | 2017-11-09 19:47 | US ---
Limited abdominal ultrasound: Multiple real-time images of the upper right abdomen were obtained. Comparison: Prior right upper quadrant abdominal ultrasound 11/02/17. Liver shows no focal abnormality. Gallbladder is slightly distended. No shadowing cholelithiasis is seen. Mild amount of sludge is identified. Gallbladder wall is slightly thickened. Common bile duct measures 6 mm which is within normal limits. Pancreas is within normal limits. Right kidney shows no hydronephrosis or mass and has a length of 14.0 cm. Impression: 1. Slightly distended gallbladder with mild gallbladder wall thickening as well as sludge. No shift shadowing gallstones are seen. Please correlate if patient has any symptoms of acalculous cholecystitis. If no correlating symptoms are present, biliary HIDA scan with ejection fraction could then be considered to further evaluate. 2. No additional abnormality is seen on right upper quadrant abdominal ultrasound. Diagnostic code #3
--- NOTE | 2017-11-10 07:10 | CR ---
Abdomen: Supine and upright views of the abdomen were obtained. Comparison: Prior abdominal x-ray of 11/02/17. Bowel gas pattern is rather gasless which is nonspecific. No free air is seen. No soft tissue abnormality is seen. No abnormal calcifications or bony abnormality is seen. Impression: 1. Nothing acute is seen on two-view abdominal x-ray. Diagnostic code #1
== END 2017-11-09 20:26 | disposition home or self-care (01) ==
LOC: JD.ED 16:33
DX: K80.12 Calculus of gallbladder with acute and chronic cholecystitis without obstruction (principal); Z79.899 Other long term (current) drug therapy
CPT/HCPCS: 36415; 74019; 76705; 80053; 82248; 82977; 83690; 85025; 86140; 96361; 96374; 96375; 99284; J1170; J2405; J7040; J7050

== ENCOUNTER 2017-11-11 20:46 | Emergency (ER) | payer MEDICAID ==
--- NOTE | 2017-11-11 22:26 | EDM.PDOC ---
ED HPI GENERAL MEDICAL PROBLEM - General Chief Complaint: Abdominal Pain Stated Complaint: ABDOMINAL PAIN Time Seen by Provider: 11/11/17 21:13 Source of Information: Reports: Patient History Limitations: Reports: No Limitations - History of Present Illness INITIAL COMMENTS - FREE TEXT/NARRATIVE: The patient presents with RUQ abdominal pain. This has been an ongoing problem for the past 2 weeks. She delivered a baby without complications 5 weeks ago. This is the 3rd time being seen in our ER and she was also seen in the clinic. She is jaundiced now. Her total bili was elevated to 7.7 today from normal 2 weeks ago. Her GGT was 1087. Her AST was 224. Her ALT was 542. Her alk phos was elevated at 530. Her CRP was 11.5. Her WBC was elevated at 11.84. The pain is now constant and the pain meds for at home are not helping. She has nausea and vomiting at times. She has no fever, chills, cough, or chest pain. Onset: Gradual Duration: Week(s): (2) Location: Reports: Abdomen Quality: Reports: Sharp Severity: Severe Improves with: Reports: None Worsens with: Reports: None Associated Symptoms: Reports: Loss of Appetite, Nausea/Vomiting. Denies: Chest Pain, Fever/Chills, Headaches, Shortness of Breath Epigastric Pain Score (Numeric/FACES): 6 - Related Data Allergies Allergy/AdvReac Type Severity Reaction Status Date / Time No Known Allergies Allergy Verified 11/11/17 20:57 Home Meds: Home Meds Acetaminophen/HYDROcodone [[place] 325-5 MG] 1 tab PO Q6H PRN #15 tablet 11/09/17 [Rx] Acyclovir 400 mg PO 5XDAY 11/09/17 [History] Omeprazole 20 mg PO BID 11/09/17 [History] Ondansetron [Zofran ODT] 4 mg PO Q6H PRN #15 tab.dis 11/09/17 [Rx] Potassium Chloride 20 meq PO DAILY 11/09/17 [History] Ciprofloxacin HCl [Cipro] 500 mg PO BID 11/11/17 [History] Past Medical History HEENT History: Reports: Impaired Vision Gastrointestinal History: Reports: 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) Other Gastrointestinal History: abdominal pain of unknown cause at this time 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 History: Reports: , 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) Other OB/BYN History: gestational diabetes Endocrine/Metabolic History: Reports: Diabetes, Gestational - Infectious Disease History Infectious Disease History: Reports: Chicken Pox - Past Surgical History Other HEENT Surgeries/Procedures: Pt wears Glasses Other Cardiovascular Surgeries/Procedures: Gestational HTN Other GI Surgeries/Procedures: Pt has had Polyps removed from her intestines in 2014 Endocrine Surgical History: Reports: None Social & Family History - Family History Family Medical History: Noncontributory - Tobacco Use Smoking Status *Q: Never Smoker Second Hand Smoke Exposure: No - Caffeine Use Caffeine Use: Reports: None Other Caffeine Use: very occasional energy drink or coffee - Recreational Drug Use Recreational Drug Use: No ED ROS GENERAL - Review of Systems Review Of Systems: See Below Constitutional: Reports: No Symptoms HEENT: Reports: No Symptoms Respiratory: Reports: No Symptoms Cardiovascular: Reports: No Symptoms Endocrine: Reports: No Symptoms GI/Abdominal: Reports: Abdominal Pain, Nausea, Vomiting. Denies: Diarrhea : Reports: No Symptoms Musculoskeletal: Reports: No Symptoms ED EXAM, GI/ABD - Physical Exam Exam: See Below Exam Limited By: No Limitations General Appearance: Alert, No Apparent Distress Eyes: Bilateral: Normal Appearance (Appearance is not normal she has scleril icteris) Ears: Normal External Exam Nose: Normal Inspection Head: Atraumatic, Normocephalic Neck: Normal Inspection Respiratory/Chest: No Respiratory Distress, Lungs Clear, Normal Breath Sounds Cardiovascular: Regular Rate, Rhythm, No Edema, No Murmur GI/Abdominal Exam: Soft, No Organomegaly, No Mass, Tender (Moderate tenderness to the RUQ) Back Exam: Normal Inspection Extremities: Normal Inspection Course - Vital Signs Last Recorded V/S: Last Vital Signs Temp 97.0 F 11/11/17 20:55 Pulse 108 H 11/11/17 20:55 Resp 16 11/11/17 20:55 BP 130/83 11/11/17 20:55 Pulse Ox 94 L 11/11/17 20:55 - Orders/Labs/Meds Orders: Active Orders 24 hr Category Date Time Status cefTRIAXone [Rocephin] 1 gm Med 11/11/17 22:30 Active Lidocaine 1% [Xylocaine 1%] 2.1 ml IM Q24H Medication Orders Ceftriaxone Sodium 1 gm/ (Lidocaine HCl 2.1 ml) 0 gm IM Q24H [place] Meds: Medications Generic Name Dose Route Start Last Admin Trade Name Freq PRN Reason Stop Dose Admin Ceftriaxone Sodium 1 gm/ 0 gm 11/11/17 22:30 Lidocaine HCl 2.1 ml IM Q24H [place] Discontinued Medications Generic Name Dose Route Start Last Admin Trade Name Fregerg PRN Reason Stop Dose Admin Hydromorphone HCl 1 mg 11/11/17 22:40 Dilaudid IM 11/11/17 22:41 ONETIME ONE - Re-Assessments/Exams Free Text/Narrative Re-Assessment/Exam: 11/11/17 22:[address] Aguilera our general surgeon and he felt that there is something more going on with her and he recommended I send her to [place]. I called [facility] in [place] and talked with Dr Baig the GI doctor fashion illustrator and he felt there was no obstruction and he was worried there may be something going on in the liver. I talked with Dr Lainez the hospitalist fashion illustrator and he accepted the patient. He wanted me to give her a dose of antibiotics before she left. I ordered rocephin 1 gram IM and dilaudid 1mg IM. Her pain is getting worse. She did not want an IV at this time or labs drawn. They were drawn earlier in the day. Her mom is a nurse and she will be taking the patient down to [facility]. Her US on the showed slightly distended gallbladder with mid gallbladder wall thickening as well as sludge. No shift shadowing gallstones are seen. Please correlate if patient has any symptoms of acalculus cholecystitis. If no correlating symptoms are present, biliary HIDA scan with ejection fraction could then be considered to further evaluate. The MRI of of abdomen shows distended gallbladder with gallbladder wall thickening and minimal pericholecystic fluid. No biliary duct dilatation is seen. Distal CBD not well seen but no filling defects are identified within the CBD to indicate stone. Acute acalculus cholecystitis is still within the differential. HIDA scan with ejection fraction as previously mentioned could be considered to further evaluate. Departure - Departure Time of Disposition: 23:00 Disposition: DC/Tfer to Acute Hospital 02 Condition: Serious Clinical Impression: Acalculous cholecystitis - Discharge Information Referrals: Baljinder Otero, ALBER [Primary Care Provider] - Forms: ED Department Discharge - My Orders Last 24 Hours: My Active Orders 11/11/17 22:30 cefTRIAXone [Rocephin] 1 gm Lidocaine 1% [Xylocaine 1%] 2.1 ml IM Q24H - Assessment/Plan Last 24 Hours: My Active Orders 11/11/17 22:30 cefTRIAXone [Rocephin] 1 gm Lidocaine 1% [Xylocaine 1%] 2.1 ml IM Q24H
[2017-11-11] MEDS ORDERED: cefTRIAXone 1 GM, Lidocaine 1% 2.1 ML IM SCH ×2 (22:30)
[2017-11-11] MEDS ORDERED: HYDROmorphone 0.5 MG/0.5 ML SYRINGE IM ONE (22:40)
== END 2017-11-11 23:12 ==
LOC: JD.ED 20:46
DX: K80.12 Calculus of gallbladder with acute and chronic cholecystitis without obstruction (principal); Z79.899 Other long term (current) drug therapy
CPT/HCPCS: 96372; 99284; J0696; J1170

== ENCOUNTER 2017-11-14 13:01 | Emergency (ER) | payer MEDICAID ==
[2017-11-14] MEDS ORDERED: Sodium Chloride 0.9% 1,000 ML IV ONE (13:40)
[2017-11-14] MEDS ORDERED: Sodium Chloride 0.9% 10 ML Syringe FLUSH PRN ×2 (13:41→14:46)
[2017-11-14] MEDS ORDERED: Ondansetron 4 MG/2 ML SDV IVPUSH ONE (13:42)
[2017-11-14] MEDS ORDERED: HYDROmorphone 0.5 MG/0.5 ML SYRINGE IVPUSH ONE (13:42)
--- NOTE | 2017-11-14 13:54 | EDM.PDOC ---
ED HPI GENERAL MEDICAL PROBLEM - General Chief Complaint: Abdominal Pain Stated Complaint: POST SURGICAL PAIN-GALLBLADDER Time Seen by Provider: 11/14/17 13:46 Source of Information: Reports: Patient, Old Records History Limitations: Reports: No Limitations - History of Present Illness INITIAL COMMENTS - FREE TEXT/NARRATIVE: 32-year-old female presents for evaluation and treatment of postsurgical pain. Patient was initially seen in the ER by myself on November 02. She had an an ultrasound and labs done. No abnormalities were identified. She was encouraged to follow up with her primary care provider to discuss additional testing such as a HIDA scan and possibly an upper endoscopy. She was started on omeprazole. She did follow up with her primary care provider, however, over the last week her symptoms have worsened. She was seen in the ER again on November 09. At that time her liver enzymes and bilirubin had gone on. She had an MRCP done the next day which did not show any stones in the CBD; gallbladder wall thickening. She was seen in the ER on November 11. At that time she was sent to [place]. She states that she had laboratory cholecystectomy with Dr. Patel at [facility] in [place]. She Also had an upper endoscopy and 2 polyps removed from her stomach. She was sent home yesterday. She states since the surgery she continues to have pain; states it is not getting better. She was prescribed hydrocodone and has been taking this but has not had any relief. Current symptoms include weakness, diaphoresis, malaise and nausea. No fevers, chills, vomiting or diarrhea. She states she has been burping since the surgery but has not has any flatus. No bowel movement since the surgery. Patient reports she attempted to eat a donut this morning, she had about a quarter to half of this but due to the nausea could not finish it. She is scheduled see Dr. Patel for follow-up in about 2 weeks. Abdomen Pain Score (Numeric/FACES): 4 - Related Data Allergies Allergy/AdvReac Type Severity Reaction Status Date / Time No Known Allergies Allergy Verified 11/11/17 20:57 Home Meds: Home Meds Acetaminophen/HYDROcodone [[place] 325-5 MG] 1 tab PO Q6H PRN #15 tablet 11/09/17 [Rx] Acyclovir 400 mg PO 5XDAY 11/09/17 [History] Omeprazole 20 mg PO BID 11/09/17 [History] Ondansetron [Zofran ODT] 4 mg PO Q6H PRN #15 tab.dis 11/09/17 [Rx] Potassium Chloride 20 meq PO DAILY 11/09/17 [History] Past Medical History HEENT History: Reports: Impaired Vision Gastrointestinal History: Reports: 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) Other Gastrointestinal History: abdominal pain of unknown cause at this time [employer] History: Reports: , 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) Other OB/BYN History: gestational diabetes Endocrine/Metabolic History: Reports: Diabetes, Gestational - Infectious Disease History Infectious Disease History: Reports: Chicken Pox, Shingles - Past Surgical History Other HEENT Surgeries/Procedures: Pt wears Glasses Other Cardiovascular Surgeries/Procedures: Gestational HTN GI Surgical History: Reports: Cholecystectomy Other GI Surgeries/Procedures: Pt has had Polyps removed from her intestines in 2014 Endocrine Surgical History: Reports: None Social & Family History - Family History Family Medical History: Noncontributory - Tobacco Use Smoking Status *Q: Never Smoker Second Hand Smoke Exposure: No - Caffeine Use Caffeine Use: Reports: Coffee, Soda Other Caffeine Use: very occasional energy drink or coffee - Recreational Drug Use Recreational Drug Use: No ED ROS GENERAL - Review of Systems Review Of Systems: See Below Constitutional: Reports: Malaise, Weakness, Diaphoresis. Denies: Fever, Chills GI/Abdominal: Reports: Abdominal Pain (RUQ, epigastric), Flatus (decreased ), Nausea. Denies: Diarrhea, Vomiting ED EXAM, GI/ABD - Physical Exam Exam: See Below Exam Limited By: No Limitations General Appearance: Alert, WD/WN, Mild Distress, Obese Respiratory/Chest: No Respiratory Distress, Lungs Clear, Normal Breath Sounds Cardiovascular: Normal Peripheral Pulses, Regular Rate, Rhythm, No Murmur GI/Abdominal Exam: Tender (RUQ, epigastric), Other (hyoactive bowel sounds). No : Distended, Rebound Neurological: Alert, Oriented, Normal Cognition Psychiatric: Normal Mood, Flat Affect Skin Exam: Warm, Dry, Normal Color Course - Vital Signs Last Recorded V/S: Last Vital Signs Temp 36.8 C 11/14/17 15:35 Pulse 99 11/14/17 15:35 Resp 16 11/14/17 15:35 BP 139/85 11/14/17 15:35 Pulse Ox 93 L 11/14/17 15:35 - Orders/Labs/Meds Orders: Active Orders 24 hr Category Date Time Status Peripheral IV Care [RC] . DIRECTED Care 11/14/17 13:42 Active Abdomen Pelvis w Cont [CT] Stat Exams 11/14/17 13:41 Taken Sodium Chloride 0.9% [Saline Flush] Med 11/14/17 13:41 Active 10 ml FLUSH ASDIRECTED PRN Sodium Chloride 0.9% [Saline Flush] Med 11/14/17 14:46 Active 10 ml FLUSH ONETIME PRN Peripheral IV Insertion Adult [OM.PC] Routine Oth 11/14/17 13:38 Ordered Medication Orders Sodium Chloride (Saline Flush) 10 ml FLUSH ASDIRECTED PRN PRN Reason: Keep Vein Open Last Admin: 11/14/17 14:02 Dose: 10 ml Sodium Chloride (Saline Flush) 10 ml FLUSH ONETIME PRN PRN Reason: IV FLUSH Last Admin: 11/14/17 14:55 Dose: 10 ml Labs: Laboratory Tests 11/14/17 11/14/17 Range/Units 13:55 13:55 WBC 10.20 H (3.98-10.04) K/mm3 RBC 4.49 (3.98-5.22) M/mm3 Hgb 12.0 (11.2-15.7) gm/L Hct 38.4 (34.1-44.9) % MCV 85.5 (79.4-94.8) fl MCH 26.7 (25.6-32.2) pg MCHC 31.3 L (32.2-35.5) g/dl RDW Std Deviation 44.2 (36.4-46.3) fL Plt Count 387 H (182-369) K/mm3 MPV 9.1 L (9.4-12.3) fl Neutrophils % (Manual) 71 H (40-60) % Band Neutrophils % 0 (0-10) % Lymphocytes % (Manual) 23 (20-40) % Atypical Lymphs % 0 % Monocytes % (Manual) 6 (2-10) % Eosinophils % (Manual) 0 L (0.7-5.8) % Basophils % (Manual) 0 L (0.1-1.2) Toxic Granulation Few Platelet Estimate Adequate Plt Morphology Comment Normal Anisocytosis 1+ slight RBC Morph Comment Not Reportable Sodium 136 (136-145) mEq/L Potassium 3.5 (3.5-5.1) mEq/L Chloride 100 (98-107) mEq/L Carbon Dioxide 25 (21-32) mEq/L Anion Gap 14.5 (5-15) BUN 8 (7-18) mg/dL Creatinine 0.7 (0.55-1.02) mg/dL Est Cr Clr Drug Dosing 116.39 mL/min Estimated GFR (MDRD) > 60 (>60) mL/min BUN/Creatinine Ratio 11.4 L (14-18) Glucose 126 H (74-106) mg/dL Calcium 9.5 (8.5-10.1) mg/dL Total Bilirubin 2.0 H (0.2-1.0) mg/dL GGT 794 H (5-55) U/L AST 55 H (15-37) U/L ALT 232 H (14-59) U/L Alkaline Phosphatase 357 H (46-116) U/L C-Reactive Protein 12.5 H* (<1.0) mg/dL Total Protein 7.9 (6.4-8.2) g/dl Albumin 3.3 L (3.4-5.0) g/dl Globulin 4.6 gm/dL Albumin/Globulin Ratio 0.7 L (1-2) Lipase 339 (73-393) U/L Meds: Medications Generic Name Dose Route Start Last Admin Trade Name Freq PRN Reason Stop Dose Admin Sodium Chloride 10 ml 11/14/17 13:41 11/14/17 14:02 Saline Flush FLUSH 10 ml ASDIRECTED PRN Administration Keep Vein Open Sodium Chloride 10 ml 11/14/17 14:46 11/14/17 14:55 Saline Flush FLUSH 10 ml ONETIME PRN Administration IV FLUSH Discontinued Medications Generic Name Dose Route Start Last Admin Trade Name Freq PRN Reason Stop Dose Admin Fentanyl 50 mcg 11/14/17 15:15 11/14/17 15:33 Sublimaze IVPUSH 11/14/17 15:16 50 mcg ONETIME ONE Administration Hydromorphone HCl 0.5 mg 11/14/17 13:42 11/14/17 13:59 Dilaudid IVPUSH 11/14/17 13:43 0.5 mg ONETIME ONE Administration Sodium Chloride 1,000 mls @ 999 mls/hr 11/14/17 13:40 11/14/17 13:57 Normal Saline IV 11/14/17 14:40 999 mls/hr ONETIME ONE Administration Iopamidol 150 ml 11/14/17 14:46 11/14/17 14:55 Isovue-300 (61%) IVPUSH 11/14/17 14:47 125 ml ONETIME ONE Administration Ondansetron HCl 4 mg 11/14/17 13:42 11/14/17 13:58 Zofran IVPUSH 11/14/17 13:43 4 mg ONETIME ONE Administration - Radiology Interpretation Free Text/Narrative:: CT of the abdomen and pelvis with IV (no oral contrast) impression per vrad: No evidence of abscess. Small to moderate amount of fluid in the pelvis, is more expected for postop changes. There is nonspecific dense material is within the fluid. Findings could represent hemoperitoneum. Infected fluid is not excluded. Bibasilar subsegmental atelectasis. - Re-Assessments/Exams Free Text/Narrative Re-Assessment/Exam: 11/14/17 16:19 Patient reports little to no more pain relief with the IV Dilaudid. Order her 50 mcgs of fentanyl which is giving her more pain relief at this time. I did discuss the patient's lab and CT results with the patient. Unfortunately given the amount of fluid in her pelvis I cannot exclude a hemoperitoneum or a bile leak. I discussed the case with [facility] in [place]. Unfortunately Dr. Patel is not on. Discussed the case with Dr. Davis, surgeon formation testing operator. Plan will be we will send her to [place]. Mom is a nurse and would like to take her by private vehicle. Patient feels comfortable with this. We will send her by private vehicle to [facility] in [place]. She is to go to the ER. Dr. Childress accepting the patient. Plan will be she will have a HIDA scan if they're able to do this tonight. Departure - Departure Time of Disposition: 16:24 Disposition: DC/Tfer to Acute Hospital 02 Condition: Fair Clinical Impression: Status post laparoscopic cholecystectomy, Post-op pain - Discharge Information Referrals: Baljinder Otero, ALBER [Primary Care Provider] - Forms: ED Department Discharge Additional Instructions: Go directly to the ER at [facility] in [place]. Dr. Childress is expecting you. Do not have anything to eat or drink. Call 911 for any problems en route. Call the [facility] at [phone] for any questions. - My Orders Last 24 Hours: My Active Orders 11/14/17 13:38 Peripheral IV Insertion Adult [OM.PC] Routine 11/14/17 13:41 Abdomen Pelvis w Cont [CT] Stat Sodium Chloride 0.9% [Saline Flush] 10 ml FLUSH ASDIRECTED PRN 11/14/17 13:42 Peripheral IV Care [RC] . DIRECTED 11/14/17 14:46 Sodium Chloride 0.9% [Saline Flush] 10 ml FLUSH ONETIME PRN - Assessment/Plan Last 24 Hours: My Active Orders 11/14/17 13:38 Peripheral IV Insertion Adult [OM.PC] Routine 11/14/17 13:41 Abdomen Pelvis w Cont [CT] Stat Sodium Chloride 0.9% [Saline Flush] 10 ml FLUSH ASDIRECTED PRN 11/14/17 13:42 Peripheral IV Care [RC] . DIRECTED 11/14/17 14:46 Sodium Chloride 0.9% [Saline Flush] 10 ml FLUSH ONETIME PRN
[2017-11-14] MEDS ORDERED: Iopamidol 612 MG/ML 150 ML Bottle IVPUSH ONE (14:46)
[2017-11-14] MEDS ORDERED: fentaNYL 100 MCG/2 ML SDV IVPUSH ONE (15:15)
--- NOTE | 2017-11-15 14:26 | CT ---
CT abdomen and pelvis Technique: Multiple axial sections were obtained from above the dome of the diaphragm inferiorly through the pubic symphysis. Intravenous contrast not utilized. No oral contrast has been given. Comparison: Previous MRI abdominal study of 11/10/17 and right upper quadrant abdominal ultrasound of 11/09/17. Findings: Atelectasis is noted within both lung bases. Minimal fluid is seen around the liver and spleen. Moderate amount of fluid is seen within the pelvis. Surgical clips are seen from prior cholecystectomy. Increased density noted within the gallbladder fossa most likely representing postoperative change. Liver shows no focal abnormality. Spleen appears within normal limits. Adrenal glands show no nodule. Pancreas is within normal limits. Aorta shows no aneurysmal dilatation. Kidneys show symmetric contrast enhancement without hydronephrosis or mass. Aorta shows no aneurysmal dilatation. No retroperitoneal adenopathy or mesenteric abnormalities are seen. There is some air within the anterior abdominal wall presumably from surgery. Appendix is felt to be visualized and shows no dilatation. No pelvic mass or adenopathy is seen. No bowel dilatation is appreciated. Bone window settings were reviewed which appear within normal limits for the patient's age. Impression: 1. Fluid around the liver and spleen as well as more confluent fluid within the dependent portions of the pelvis. Fluid is more than usually seen with previous surgery. Difficult to exclude low density hemoperitoneum. Hounsfield unit measurements may also be elevated due to infected fluid although this seems unlikely given the short interval change from previous surgery. 2. Surgical clips from prior cholecystectomy with slight increased density within the gallbladder fossa felt compatible with change from prior surgery. Air noted within the anterior abdominal wall likely from prior surgery. 3. Bibasilar atelectasis. 4. No additional abnormality is appreciated. Diagnostic code #3 Agree with preliminary report issued by [facility] ([facility] preliminary report dictated on 11/14/17, 4:25 PM Central Time)
== END 2017-11-14 16:45 ==
LOC: JD.ED 13:01
DX: G89.18 Other acute postprocedural pain (principal); R10.11 Right upper quadrant pain; R10.13 Epigastric pain; Z79.899 Other long term (current) drug therapy; Z90.49 Acquired absence of other specified parts of digestive tract
CPT/HCPCS: 36415; 74177; 80053; 82977; 83690; 85025; 86140; 96361; 96374; 96375; 99284; J1170; J2405; J3010; J7040; J7050; Q9967

== ENCOUNTER 2017-11-28 06:29 | Emergency (ER) | payer MEDICAID ==
[2017-11-28] MEDS ORDERED: Ondansetron 4 MG/2 ML SDV IVPUSH ONE (07:00)
[2017-11-28] MEDS ORDERED: Sodium Chloride 0.9% 1,000 ML IV SCH (07:00)
[2017-11-28] MEDS ORDERED: Sodium Chloride 0.9% 10 ML Syringe FLUSH PRN (07:00)
--- NOTE | 2017-11-28 07:23 | EDM.PDOC ---
ED HPI GENERAL MEDICAL PROBLEM - General Chief Complaint: Gastrointestinal Problem Stated Complaint: NAUSEA/VOMITING Time Seen by Provider: 11/28/17 06:59 Source of Information: Reports: Patient, RN Notes Reviewed - History of Present Illness INITIAL COMMENTS - FREE TEXT/NARRATIVE: 32-year-old female comes in with nausea vomiting. She has had a complicated course over the last several weeks with abdominal pain and diagnosed with cholecystitis. She did have a laparoscopic cholecystectomy in [facility] 2 weeks ago, has had some postop complications with a lot of pain, multiple return ED visits and postoperative hospitalization either once or twice at [facility]. She does have a stent that has been placed and informs me that she has had some postoperative pancreatitis. she was released from [facility] about a week ago. She Hasbeen doing better but has continued to have poor appetite intermittent upper abdominal pain last evening did develop nausea worsening nausea to the point where she vomited once last evening and again once this morning. SHe has Mild upper abdominal discomfort this morning. She continues to feel nauseated. Her mouth feels dry. No fever or chills. No chest pain or difficulty breathing. Right Flank Pain Score (Numeric/FACES): 5 - Related Data Allergies Allergy/AdvReac Type Severity Reaction Status Date / Time No Known Allergies Allergy Verified 11/28/17 07:02 Home Meds: Home Meds Omeprazole 20 mg PO DAILY 11/09/17 [History] Potassium Chloride 20 meq PO DAILY 11/09/17 [History] Ciprofloxacin [IJD: Ciprofloxacin HCl] 500 mg PO BID 11/28/17 [History] Metoclopramide HCl [Reglan] 10 mg PO QID PRN 11/28/17 [History] Past Medical History HEENT History: Reports: Impaired Vision Gastrointestinal History: Reports: 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) Other Gastrointestinal History: abdominal pain of unknown cause at this time 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: , 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) Other OB/BYN History: gestational diabetes Endocrine/Metabolic History: Reports: Diabetes, Gestational - Infectious Disease History Infectious Disease History: Reports: Chicken Pox, Shingles - Past Surgical History Other HEENT Surgeries/Procedures: Pt wears Glasses Other Cardiovascular Surgeries/Procedures: Gestational HTN GI Surgical History: Reports: Cholecystectomy Other GI Surgeries/Procedures: Pt has had Polyps removed from her intestines in 2014 Endocrine Surgical History: Reports: None Social & Family History - Family History Family Medical History: Noncontributory - Tobacco Use Smoking Status *Q: Never Smoker - Caffeine Use Caffeine Use: Reports: Coffee, Soda Other Caffeine Use: very occasional energy drink or coffee - Recreational Drug Use Recreational Drug Use: No ED ROS GENERAL - Review of Systems Review Of Systems: See Below Constitutional: Denies: Fever, Chills, Diaphoresis HEENT: Denies: Throat Pain Respiratory: Denies: Shortness of Breath, Pleuritic Chest Pain, Cough Cardiovascular: Denies: Chest Pain GI/Abdominal: Reports: Abdominal Pain (mild upper abd), Diarrhea (occasional), Decreased Appetite, Nausea, Vomiting Skin: Denies: Jaundice Neurological: Denies: Dizziness, Numbness, Tingling, Difficulty Walking ED EXAM, GI/ABD - Physical Exam Exam: See Below General Appearance: Alert, Mild Distress Eyes: Bilateral: Normal Appearance Throat/Mouth: Normal Inspection, Normal Oropharynx Head: No: Facial Swelling Neck: Supple, Full Range of Motion Respiratory/Chest: No Respiratory Distress, Lungs Clear, Normal Breath Sounds Cardiovascular: Tachycardia GI/Abdominal Exam: Tender (mild tenderenss upper mid abd) Back Exam: No: CVA Tenderness (L), CVA Tenderness (R) Extremities: Normal Inspection, Normal Range of Motion Neurological: Alert, Oriented, No Motor/Sensory Deficits Skin Exam: Warm, Dry, Normal Color Course - Vital Signs Last Recorded V/S: Last Vital Signs Temp 98.6 F 11/28/17 06:37 Pulse 117 H 11/28/17 06:37 Resp 16 11/28/17 06:37 BP 132/86 11/28/17 06:37 Pulse Ox 94 L 11/28/17 06:37 - Orders/Labs/Meds Orders: Active Orders 24 hr Category Date Time Status Peripheral IV Care [RC] . DIRECTED Care 11/28/17 07:00 Active CULTURE BLOOD [BC] Stat Lab 11/28/17 09:35 Received Sodium Chloride 0.9% [Normal Saline] 1,000 ml Med 11/28/17 07:00 Active IV ASDIRECTED Sodium Chloride 0.9% [Saline Flush] Med 11/28/17 07:00 Active 10 ml FLUSH ASDIRECTED PRN Peripheral IV Insertion Adult [OM.PC] Stat Oth 11/28/17 07:00 Ordered Medication Orders Sodium Chloride (Normal Saline) 1,000 mls @ 999 mls/hr IV ASDIRECTED [place] Last Admin: 11/28/17 07:00 Dose: 999 mls/hr Sodium Chloride (Saline Flush) 10 ml FLUSH ASDIRECTED PRN PRN Reason: Keep Vein Open Last Admin: 11/28/17 07:20 Dose: 10 ml Labs: Laboratory Tests 11/28/17 11/28/17 11/28/17 Range/Units 06:50 06:50 06:50 WBC 18.36 H (3.98-10.04) K/mm3 RBC 4.32 (3.98-5.22) M/mm3 Hgb 11.2 (11.2-15.7) gm/L Hct 36.5 (34.1-44.9) % MCV 84.5 (79.4-94.8) fl MCH 25.9 (25.6-32.2) pg MCHC 30.7 L (32.2-35.5) g/dl RDW Std Deviation 45.0 (36.4-46.3) fL Plt Count 738 H (182-369) K/mm3 MPV 8.3 L (9.4-12.3) fl Neutrophils % (Manual) 83 H (40-60) % Band Neutrophils % 3 (0-10) % Lymphocytes % (Manual) 10 L (20-40) % Atypical Lymphs % 0 % Monocytes % (Manual) 2 (2-10) % Eosinophils % (Manual) 2 (0.7-5.8) % Basophils % (Manual) 0 L (0.1-1.2) Platelet Estimate See note RBC Morph Comment Normal Sodium 138 (136-145) mEq/L Potassium 3.6 (3.5-5.1) mEq/L Chloride 101 (98-107) mEq/L Carbon Dioxide 24 (21-32) mEq/L Anion Gap 16.6 H (5-15) BUN 9 (7-18) mg/dL Creatinine 0.8 (0.55-1.02) mg/dL Est Cr Clr Drug Dosing 101.84 mL/min Estimated GFR (MDRD) > 60 (>60) mL/min BUN/Creatinine Ratio 11.3 L (14-18) Glucose 134 H (74-106) mg/dL Lactic Acid (0.4-2.0) mmol/L Calcium 9.8 (8.5-10.1) mg/dL Total Bilirubin 0.9 (0.2-1.0) mg/dL GGT 88 H (5-55) U/L AST 13 L (15-37) U/L ALT 25 (14-59) U/L Alkaline Phosphatase 142 H (46-116) U/L C-Reactive Protein (<1.0) mg/dL Total Protein 9.1 H (6.4-8.2) g/dl Albumin 3.2 L (3.4-5.0) g/dl Globulin 5.9 gm/dL Albumin/Globulin Ratio 0.5 L (1-2) Lipase 938 H (73-393) U/L 11/28/17 11/28/17 Range/Units 09:35 09:35 WBC (3.98-10.04) K/mm3 RBC (3.98-5.22) M/mm3 Hgb (11.2-15.7) gm/L Hct (34.1-44.9) % MCV (79.4-94.8) fl MCH (25.6-32.2) pg MCHC (32.2-35.5) g/dl RDW Std Deviation (36.4-46.3) fL Plt Count (182-369) K/mm3 MPV (9.4-12.3) fl Neutrophils % (Manual) (40-60) % Band Neutrophils % (0-10) % Lymphocytes % (Manual) (20-40) % Atypical Lymphs % % Monocytes % (Manual) (2-10) % Eosinophils % (Manual) (0.7-5.8) % Basophils % (Manual) (0.1-1.2) Platelet Estimate RBC Morph Comment Sodium (136-145) mEq/L Potassium (3.5-5.1) mEq/L Chloride (98-107) mEq/L Carbon Dioxide (21-32) mEq/L Anion Gap (5-15) BUN (7-18) mg/dL Creatinine (0.55-1.02) mg/dL Est Cr Clr Drug Dosing mL/min Estimated GFR (MDRD) (>60) mL/min BUN/Creatinine Ratio (14-18) Glucose (74-106) mg/dL Lactic Acid 0.7 (0.4-2.0) mmol/L Calcium (8.5-10.1) mg/dL Total Bilirubin (0.2-1.0) mg/dL GGT (5-55) U/L AST (15-37) U/L ALT (14-59) U/L Alkaline Phosphatase (46-116) U/L C-Reactive Protein 13.4 H* (<1.0) mg/dL Total Protein (6.4-8.2) g/dl Albumin (3.4-5.0) g/dl Globulin gm/dL Albumin/Globulin Ratio (1-2) Lipase (73-393) U/L Meds: Medications Generic Name Dose Route Start Last Admin Trade Name Freq PRN Reason Stop Dose Admin Sodium Chloride 1,000 mls @ 999 mls/hr 11/28/17 07:00 11/28/17 07:00 Normal Saline IV 999 mls/hr ASDIRECTED [place] Administration Sodium Chloride 10 ml 11/28/17 07:00 11/28/17 07:20 Saline Flush FLUSH 10 ml ASDIRECTED PRN Administration Keep Vein Open Discontinued Medications Generic Name Dose Route Start Last Admin Trade Name Freq PRN Reason Stop Dose Admin Piperacillin Sod/Tazobactam 100 mls @ 200 mls/hr 11/28/17 10:01 11/28/17 10: 08 Sod 4.5 gm/ Sodium Chloride IV 11/28/17 10:30 200 mls/hr ONETIME ONE Administration Metoclopramide HCl 5 mg 11/28/17 07:35 11/28/17 07:53 Reglan IVPUSH 11/28/17 07:36 5 mg ONETIME ONE Administration Ondansetron HCl 4 mg 11/28/17 07:00 11/28/17 07:19 Zofran IVPUSH 11/28/17 07:01 4 mg ONETIME ONE Administration - Re-Assessments/Exams Free Text/Narrative Re-Assessment/Exam: 11/28/17 10:00. I did discuss clinical course, findings today with Dr. Aguilera, our General Surgeon neon sign installer. He states that she will need to be rehospitalized for IV antibiotics. CT scan to further delineate status of her pancreas, possible other associated findings. He feels that GI will likely need to be involved and that she will likely need care beyond what we can provide here at this facility. Therefore he is suggesting transfer back to [facility] or if they are posterior that [facility]. I have Presented these options to patient and her . Her is strongly opposed to going back to [place] I believe based mainly on the difficult clinical course that she has had. He states they "did nothing" but we know that treatments were provided during her last 4-5 day admission. I have discussed this with Dr. Perkins, Hospitalist neon sign installer for [facility] who does accept patient in transfer. He did have me also discuss this with Dr Tolentino, General Surgeon neon sign installer who was also OK with her being transferred. We have given IV fluid, IV Zofran and IV Reglan for her nausea vomiting. Also given Zofran 4.5 g IV prior to her being transferred. She has asked that she be allowed to go private vehicle. Her mother will be providing that transportation. She will be direct admit upon arrival to [facility]. Departure - Departure Time of Disposition: 10:20 Disposition: DC/Tfer to [facility] 02 Condition: Serious Clinical Impression: Pancreatitis Qualifiers: Chronicity: acute Pancreatitis type: biliary Acute pancreatitis complication: unspecified Qualified Code(s): K85.10 - Biliary acute pancreatitis without necrosis or infection - Discharge Information Referrals: Baljinder Otero, ALBER [Primary Care Provider] - Forms: ED Department Discharge - My Orders Last 24 Hours: My Active Orders 11/28/17 07:00 Peripheral IV Care [RC] . DIRECTED Sodium Chloride 0.9% [Normal Saline] 1,000 ml IV ASDIRECTED Sodium Chloride 0.9% [Saline Flush] 10 ml FLUSH ASDIRECTED PRN Peripheral IV Insertion Adult [OM.PC] Stat 11/28/17 09:35 CULTURE BLOOD [BC] Stat - Assessment/Plan Last 24 Hours: My Active Orders 11/28/17 07:00 Peripheral IV Care [RC] . DIRECTED Sodium Chloride 0.9% [Normal Saline] 1,000 ml IV ASDIRECTED Sodium Chloride 0.9% [Saline Flush] 10 ml FLUSH ASDIRECTED PRN Peripheral IV Insertion Adult [OM.PC] Stat 11/28/17 09:35 CULTURE BLOOD [BC] Stat
[2017-11-28] MEDS ORDERED: Metoclopramide 10 MG/2 ML SDV IVPUSH ONE (07:35)
[2017-11-28] MEDS ORDERED: Piperacillin/Tazobactam 4.5 GM in Sodium Chloride 0.9% 100 ML IV ONE (10:01)
== END 2017-11-28 10:43 ==
LOC: JD.ED 06:29
DX: K85.10 Biliary acute pancreatitis without necrosis or infection (principal); Z79.899 Other long term (current) drug therapy
CPT/HCPCS: 36415; 80053; 82977; 83605; 83690; 85007; 85027; 86140; 87040; 96361; 96365; 96375; 99285; J2405; J2543; J2765; J7030; J7040; J7050; 99284

== ENCOUNTER 2021-03-10 14:31 | Emergency (ER) | payer MEDICAID ==
--- NOTE | 2021-03-10 17:28 | CT ---
CT abdomen and pelvis Technique: Multiple axial sections were obtained from above the dome of the diaphragm inferiorly through the pubic symphysis. Intravenous and oral contrast were not utilized. Reconstructed coronal and sagittal images were obtained. Comparison: Prior CT abdomen and pelvis exam of 11/14/17. Findings: Visualized lung bases show partially visualized nodules on both sides of the chest. Largest nodule measures approximately 1 cm. These findings are not appreciated on prior exam. No calcifications are seen within these nodules. Liver is enlarged and shows diffuse fatty infiltration. Surgical clips are seen from prior cholecystectomy. Spleen size is normal. Adrenal glands show no nodule. No abnormality is appreciated within the pancreas. Kidneys show no hydronephrosis. No ureteral dilatation or ureteral stone is seen. Abdominal aorta shows no aneurysm. No retroperitoneal adenopathy or mesenteric abnormalities are seen. No pelvic mass or adenopathy is seen. Appendix is felt to be visualized. Bone window settings were reviewed. No acute osseous abnormality is appreciated. Impression: 1. Multiple small nodules are seen within both lung bases. Largest measures about 1 cm. These show no abnormal calcifications. Noncontrast chest CT is recommended to further evaluate. At this point, it is difficult to exclude an etiology such as metastatic disease. 2. Fatty infiltration within the liver with mild hepatomegaly. 3. No definite acute abnormality is otherwise appreciated on noncontrast CT study of the abdomen and pelvis. Diagnostic code #9
--- NOTE | 2021-03-10 18:10 | EDM.PDOC ---
ED HPI GENERAL MEDICAL PROBLEM - General Chief Complaint: Genitourinary Problem Stated Complaint: KIDNEY PAIN Time Seen by Provider: 03/10/21 15:41 Source of Information: Reports: Patient History Limitations: Reports: No Limitations - History of Present Illness INITIAL COMMENTS - FREE TEXT/NARRATIVE: 36-year-old female presents the emergency department today with complaints of right flank pain. Patient states she was recently seen at [facility] 3 days ago and diagnosed with a kidney infection. She was started on Keflex at that time. She states she has been taking her Keflex as prescribed and has not missed any dosages. However, she states she does not feel like she is getting much better. She complains of pain to her right lower flank area. She states she does have a history of frequent UTIs with kidney infections. She does not have a history of kidney stones. She denies any recent fever or chills however she has had nausea and vomiting over the past 2 days. Vomiting approximately once per day. Patient states she is otherwise healthy. She does not have a primary care provider whom she routinely sees. She denies any other symptoms. 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: gestational diabetes Endocrine/Metabolic History: Reports: Diabetes, Gestational - Infectious Disease History Infectious Disease History: Reports: Chicken Pox, Shingles - Past Surgical History Other HEENT Surgeries/Procedures: Pt wears Glasses Other Cardiovascular Surgeries/Procedures: Gestational HTN GI Surgical History: Reports: Cholecystectomy Other GI Surgeries/Procedures: Pt has had Polyps removed from her intestines in 2014 Endocrine Surgical History: Reports: None Social & Family History - Family History Family Medical History: No Pertinent Family History - Tobacco Use Tobacco Use Status *Q: Never Tobacco User Second Hand Smoke Exposure: No - Caffeine Use Caffeine Use: Reports: Coffee, Energy Drinks Other Caffeine Use: very occasional energy drink or coffee Caffeine Use Comment: occasionally - Recreational Drug Use Recreational Drug Use: No ED ROS GENERAL - Review of Systems Review Of Systems: Comprehensive ROS is negative, except as noted in HPI. ED EXAM, RENAL/ - Physical Exam Exam: See Below Exam Limited By: No Limitations General Appearance: Alert, WD/WN, No Apparent Distress Ears: Normal External Exam, Hearing Grossly Normal Nose: Normal Inspection Throat/Mouth: Normal Inspection, Normal Lips, Normal Voice, No Airway Compromise Head: Atraumatic Neck: Normal Inspection, Supple Respiratory/Chest: No Respiratory Distress, Lungs Clear, Normal Breath Sounds, No Accessory Muscle Use, Chest Non-Tender Cardiovascular: Normal Peripheral Pulses, Regular Rate, Rhythm, No Edema, No Murmur GI/Abdominal: Normal Bowel Sounds, Soft, Non-Tender, No Distention (Female) Exam: Deferred Rectal (Female) Exam: Deferred Back Exam: Normal Inspection, Full Range of Motion. No: CVA Tenderness (L), CVA Tenderness (R) Extremities: Normal Inspection, Normal Range of Motion, Non-Tender, No Pedal Edema, Normal Capillary Refill Neurological: Alert, Oriented, Normal Cognition Psychiatric: Normal Affect, Normal Mood Skin Exam: Warm, Dry, Intact, Normal Color, No Rash Lymphatic: No Adenopathy Course - Vital Signs Text/Narrative:: As stated above, patient with a history of frequent UTIs and kidney infections. She was recently diagnosed with kidney infection at [facility] 3 days ago and has been on Keflex for that. Upon assessment it is essentially unremarkable however she does complain of pain to the right lower flank area. She does not have costovertebral angle tenderness noted. I have ordered labs to include a CBC, CMP, magnesium and a C-reactive protein. We will get a CT of the abdomen pelvis without contrast to rule out stone. I do not think a urinalysis will be beneficial at this time as the patient has been on Keflex. Last Recorded V/S: Last Vital Signs Temp 99.4 F 03/10/21 15:04 Pulse 113 H 03/10/21 15:04 Resp 20 03/10/21 15:04 BP 133/81 03/10/21 15:04 Pulse Ox 95 03/10/21 15:04 - Orders/Labs/Meds Labs: Laboratory Tests 03/10/21 03/10/21 03/10/21 Range/Units 16:16 16:16 16:21 WBC 3.12 L (3.98-10.04) K/mm3 RBC 5.07 (3.98-5.22) M/mm3 Hgb 14.2 (11.2-15.7) gm/dl Hct 43.6 (34.1-44.9) % MCV 86.0 (79.4-94.8) fl MCH 28.0 (25.6-32.2) pg MCHC 32.6 (32.2-35.5) g/dl RDW Std Deviation 43.2 (36.4-46.3) fL Plt Count 248 (182-369) K/mm3 MPV 9.8 (9.4-12.3) fl Neut % (Auto) 62.5 (34.0-71.1) % Lymph % (Auto) 26.3 (19.3-51.7) % [place] % (Auto) 10.6 (4.7-12.5) % Eos % (Auto) 0.3 L (0.7-5.8) Baso % (Auto) 0.0 L (0.1-1.2) % Neut # (Auto) 1.95 (1.56-6.13) K/mm3 Lymph # (Auto) 0.82 L (1.18-3.74) K/mm3 [place] # (Auto) 0.33 (0.24-0.36) K/mm3 Eos # (Auto) 0.01 L (0.04-0.36) K/mm3 Baso # (Auto) 0.00 L (0.01-0.08) K/mm3 Sodium 137 (136-145) mEq/L Potassium 3.4 L (3.5-5.1) mEq/L Chloride 100 (98-107) mEq/L Carbon Dioxide 27 (21-32) mEq/L Anion Gap 13.4 (5-15) BUN 10 (7-18) mg/dL Creatinine 0.9 (0.55-1.02) mg/dL Est Cr Clr Drug Dosing 87.17 mL/min Estimated GFR (MDRD) > 60 (>60) mL/min BUN/Creatinine Ratio 11.1 L (14-18) Glucose 94 (70-99) mg/dL Calcium 8.5 (8.5-10.1) mg/dL Magnesium 1.8 (1.8-2.4) mg/dL Total Bilirubin 0.8 (0.2-1.0) mg/dL AST 43 H (15-37) U/L ALT 67 H (14-59) U/L Alkaline Phosphatase 77 (46-116) U/L C-Reactive Protein 1.3 H* (<1.0) mg/dL Total Protein 8.9 H (6.4-8.2) g/dl Albumin 3.9 (3.4-5.0) g/dl Globulin 5.0 gm/dL Albumin/Globulin Ratio 0.8 L (1-2) Urine HCG, Qual Negative (NEGATIVE) SARS-CoV-2 RNA (JUDY) (NEGATIVE) 03/10/21 Range/Units 19:22 WBC (3.98-10.04) K/mm3 RBC (3.98-5.22) M/mm3 Hgb (11.2-15.7) gm/dl Hct (34.1-44.9) % MCV (79.4-94.8) fl MCH (25.6-32.2) pg MCHC (32.2-35.5) g/dl RDW Std Deviation (36.4-46.3) fL Plt Count (182-369) K/mm3 MPV (9.4-12.3) fl Neut % (Auto) (34.0-71.1) % Lymph % (Auto) (19.3-51.7) % [place] % (Auto) (4.7-12.5) % Eos % (Auto) (0.7-5.8) Baso % (Auto) (0.1-1.2) % Neut # (Auto) (1.56-6.13) K/mm3 Lymph # (Auto) (1.18-3.74) K/mm3 [place] # (Auto) (0.24-0.36) K/mm3 Eos # (Auto) (0.04-0.36) K/mm3 Baso # (Auto) (0.01-0.08) K/mm3 Sodium (136-145) mEq/L Potassium (3.5-5.1) mEq/L Chloride (98-107) mEq/L Carbon Dioxide (21-32) mEq/L Anion Gap (5-15) BUN (7-18) mg/dL Creatinine (0.55-1.02) mg/dL Est Cr Clr Drug Dosing mL/min Estimated GFR (MDRD) (>60) mL/min BUN/Creatinine Ratio (14-18) Glucose (70-99) mg/dL Calcium (8.5-10.1) mg/dL Magnesium (1.8-2.4) mg/dL Total Bilirubin (0.2-1.0) mg/dL AST (15-37) U/L ALT (14-59) U/L Alkaline Phosphatase (46-116) U/L C-Reactive Protein (<1.0) mg/dL Total Protein (6.4-8.2) g/dl Albumin (3.4-5.0) g/dl Globulin gm/dL Albumin/Globulin Ratio (1-2) Urine HCG, Qual (NEGATIVE) SARS-CoV-2 RNA (JUDY) Positive H (NEGATIVE) - Re-Assessments/Exams Free Text/Narrative Re-Assessment/Exam: 03/10/21 18:04 Allergy reveals a WBC of 3.12, hemoglobin 14.2, hematocrit 43.6, platelet count 248 Chemistry reveals a sodium of 137, potassium 3.4, anion gap 13.4, BUN 10, creatinine 0.9, glucose 94, magnesium 1.8, AST 43, ALT 67, alk phos 77, C-react jonatan protein 1.3 Urine hCG is negative CT of the abdomen pelvis radiologist impression: 1. Multiple small nodules are seen within both lung bases. Largest measured about 1 cm. These show no abnormal calcifications. Noncontrast chest CT is recommended to further evaluate. At this point, it is difficult to exclude an etiology such as metastatic disease. 2. Fatty infiltration within the liver with mild height hepatomegaly. 3. No definite acute abnormality is otherwise appreciated on noncontrast CT study of the abdomen and pelvis. I have ordered noncontrast chest CT for further evaluation. 03/10/21 19:[address] of the chest: 1. Numerous nodules within both sides of the chest. Largest finding is within the approximate superior segment of the right lower lung. These findings raise the possibility of diffuse developing pneumonia. Please rule out Covid disease. If no history of Covid disease antibiotic therapy is recommended and follow-up lung CT is recommended to make sure these findings do not increase in size in 3 months time. 2. Other incidental findings are noted. I have ordered a Covid swab on the patient. 03/10/21 20:11 Patient is Covid positive, she will be discharged home with recommendations that she quarantine for 10 days. She will need to follow-up with her primary care physician in about 3 months to have a reevaluation of the nodules in her lungs. Departure - Departure Time of Disposition: 20:11 Disposition: Home, Self-Care 01 Condition: Good Clinical Impression: COVID-19 - Discharge Information Instructions: COVID-19 Frequently Asked Questions, COVID-19: What to Do if You Are Sick - [facility] (07/19/2020), COVID-19: Quarantine vs. Isolation - [facility] (07/05/2020) Referrals: PCP,None [Primary Care Provider] - Forms: ED Department Discharge Additional Instructions: You were seen in the emergency department today with right flank pain. Labs and CT scan were completed and you did not appear to have any type of bacterial infection or kidney infection. Upon scan of your abdomen it was noted you had nodules within your lungs. A CT scan was completed to further evaluate this. Per the radiologist's recommendations we did swab you for Covid. This did come back positive and would correlate with the appearance of your lungs. You do need to quarantine for 10 days. May take Tylenol 650 mg every 4 hours alternating with ibuprofen 600 mg every 4 hours for low back pain. Continue taking your antibiotic treatment for kidney infection as prescribed. It is str ongly recommended that you follow-up with your primary care provider in about 3 months for reevaluation of the nodules noted in your lungs. Go home and rest. Drink plenty of fluids. Should your condition worsen or change, do not hesitate returning to the emergency department. Sepsis Event Note (ED) - Evaluation Sepsis Screening Result: Possible Sepsis Risk - Focused Exam Vital Signs: Vital Signs Temp Pulse Resp BP Pulse Ox 03/10/21 15:04 99.4 F 113 H 20 133/81 95
--- NOTE | 2021-03-10 19:09 | CT ---
CT chest Technique: Multiple axial sections through the chest were obtained. Intravenous contrast was not utilized. Reconstructed coronal and sagittal images were obtained. Comparison: No prior chest imaging is available, prior abdomen and pelvis study performed earlier in the same day was available (5:02 PM). Findings: Thoracic aorta shows no aneurysm. Several scattered lymph nodes are seen which are believed to be within normal limits. Fatty infiltration is again noted within the liver. No pericardial thickening is seen. Minimal coronary artery calcification is noted. Lung window settings were reviewed. Scattered parenchymal nodules are seen on both sides of the chest. Largest finding is within the approximate superior segment of the right lower lung measuring 5.6 cm. No pleural effusions are seen. Bone window settings were reviewed which show slight degenerative change within the mid thoracic spine. No acute osseous abnormality is appreciated. Impression: 1. Numerous nodules within both sides of the chest. Largest finding is within the approximate superior segment of the right lower lung. These findings raise the possibility of diffuse developing pneumonia. Please rule out COVID disease. If no history of COVID disease antibiotic therapy is recommended and follow-up lung CT is recommended to make sure these findings do not increase in size (in three months). 2. Other findings which are believed to be incidental as noted above. Diagnostic code #3
== END 2021-03-10 17:45 | disposition home or self-care (01) ==
LOC: JD.ED 14:31
DX: U07.1 COVID-19 (principal); Z79.899 Other long term (current) drug therapy
CPT/HCPCS: 36415; 71250; 71250-26; 74176; 74176-26; 80053; 81025; 83735; 85025; 86140; 99283; 99284-25; U0002

== ENCOUNTER 2021-03-16 15:37 | Inpatient (IN) | payer MEDICAID ==
[2021-03-16] MEDS ORDERED: Sodium Chloride 0.9% 10 ML Syringe FLUSH PRN (16:01)
[2021-03-16] MEDS ORDERED: REMDESIVIR 200 MG in Sodium Chloride 0.9% 250 ML IV ONE (16:14)
[2021-03-16] MEDS ORDERED: Dexamethasone 10 MG/ML SDV IVPUSH ONE (16:14)
--- NOTE | 2021-03-16 16:14 | EDM.PDOC ---
ED HPI GENERAL MEDICAL PROBLEM - General Chief Complaint: Respiratory Problem Stated Complaint: COVID +/SOB Time Seen by Provider: 03/16/21 15:51 Source of Information: Reports: Patient, RN Notes Reviewed History Limitations: Reports: No Limitations - History of Present Illness INITIAL COMMENTS - FREE TEXT/NARRATIVE: Patient is a 36-year-old female who presents to the ER for ongoing COVID-19 symptoms. Patient notes she was diagnosed in this facility last week Thursday. States that she is been feeling fine for the most part, but began to feel somewhat more short of breath today, so she brought herself a pulse oximeter, and checked her oxygen levels and found them to be in the high 70s and low 80s at home. O2 sats on room air when she presents to the ER has been 86 to 88%. She was placed on 1 L via nasal cannula and this has increased her oxygen levels to roughly 93 to 94%. States that she is feeling somewhat short of breath, but no fevers or chills, or any sort of worsening cough. She does have a dry intermittent harsh cough noted. She is having some nausea but no vomiting and states that she is having some slight diarrhea. States she does not have much of an appetite but has been trying to force herself to eat. Denying any past medical issues. She did not get the Covid vaccine. 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: none Chest Pain Score (Numeric/FACES): 4 - Related Data Allergies Allergy/AdvReac Type Severity Reaction Status Date / Time No Known Allergies Allergy Verified 03/10/21 15:07 Home Meds: Home Meds Omeprazole 20 mg PO DAILY 11/09/17 [History] Albuterol Sulfate [Proair Hfa] 2 puff INH ASDIRECTED 03/16/21 [History] Benzonatate [Tessalon Perle] 100 mg PO ASDIRECTED 03/16/21 [History] Codeine/guaiFENesin [Robitussin AC] 5 ml PO ASDIRECTED 03/16/21 [History] ondansetron HCL [Zofran] 4 mg PO ASDIRECTED 03/16/21 [History] Past Medical History HEENT History: Reports: Impaired Vision Gastrointestinal History: Reports: 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) Other Gastrointestinal History: abdominal pain of unknown cause at this time 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: , 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 DINKEY OPERATOR History: gestational diabetes Endocrine/Metabolic History: Reports: Diabetes, Gestational - Infectious Disease History Infectious Disease History: Reports: Chicken Pox, Novel Coronavirus, Shingles - Past Surgical History Other HEENT Surgeries/Procedures: Pt wears Glasses Other Cardiovascular Surgeries/Procedures: Gestational HTN GI Surgical History: Reports: Cholecystectomy Other GI Surgeries/Procedures: Pt has had Polyps removed from her intestines in 2015 Endocrine Surgical History: Reports: None Social & Family History - Family History Family Medical History: No Pertinent Family History - Tobacco Use Tobacco Use Status *Q: Never Tobacco User - Caffeine Use Caffeine Use: Reports: Coffee, Energy Drinks Other Caffeine Use: very occasional energy drink or coffee Caffeine Use Comment: occasionally - Recreational Drug Use Recreational Drug Use: No ED ROS GENERAL - Review of Systems Review Of Systems: Comprehensive ROS is negative, except as noted in HPI. ED EXAM, GENERAL - Physical Exam Exam: See Below Exam Limited By: No Limitations General Appearance: Alert, WD/WN, No Apparent Distress Respiratory/Chest: No Respiratory Distress, Lungs Clear, No Accessory Muscle Use, Chest Non-Tender, Decreased Breath Sounds (diffuse bilaterally) Cardiovascular: Normal Peripheral Pulses, Regular Rate, Rhythm, No Edema Peripheral Pulses: 2+: Radial (L), Radial (R) Extremities: Normal Inspection, Normal Capillary Refill Neurological: Alert, Oriented, Normal Cognition, No Motor/Sensory Deficits Psychiatric: Normal Affect, Normal Mood Skin Exam: Warm, Dry, Intact, Normal Color, No Rash Course - Vital Signs Last Recorded V/S: Last Vital Signs Temp 96.9 F 03/16/21 16:02 Pulse 100 03/16/21 16:02 Resp 20 03/16/21 16:02 BP 110/82 03/16/21 16:02 Pulse Ox 84 L 03/16/21 16:29 - Orders/Labs/Meds Orders: Active Orders 24 hr Category Date Time Status Oxygen Therapy, ED [RC] ASDIRECTED Care 03/16/21 16:11 Ordered Peripheral IV Care [RC] . DIRECTED Care 03/16/21 16:01 Ordered Chest 1V Frontal [CR] Stat Exams 03/16/21 16:00 Ordered Sodium Chloride 0.9% [Saline Flush] Med 03/16/21 16:01 Ordered 10 ml FLUSH ASDIRECTED PRN Peripheral IV Insertion Adult [OM.PC] Routine Oth 03/16/21 16:01 Ordered Medication Orders Sodium Chloride (Sodium Chloride 0.9% 10 Ml Syringe) 10 ml FLUSH ASDIRECTED PRN PRN Reason: Keep Vein Open Last Admin: 03/16/21 16:28 Dose: 10 ml Documented by: RENETTA Labs: Laboratory Tests 03/16/21 03/16/21 03/16/21 Range/Units 16:00 16:00 16:00 WBC 5.39 (3.98-10.04) K/mm3 RBC 4.66 (3.98-5.22) M/mm3 Hgb 12.9 (11.2-15.7) gm/dl Hct 39.9 (34.1-44.9) % MCV 85.6 (79.4-94.8) fl MCH 27.7 (25.6-32.2) pg MCHC 32.3 (32.2-35.5) g/dl RDW Std Deviation 42.9 (36.4-46.3) fL Plt Count 228 (182-369) K/mm3 MPV 9.8 (9.4-12.3) fl Neut % (Auto) 68.0 (34.0-71.1) % Lymph % (Auto) 23.2 (19.3-51.7) % [place] % (Auto) 8.0 (4.7-12.5) % Eos % (Auto) 0.2 L (0.7-5.8) Baso % (Auto) 0.4 (0.1-1.2) % Neut # (Auto) 3.67 (1.56-6.13) K/mm3 Lymph # (Auto) 1.25 (1.18-3.74) K/mm3 [place] # (Auto) 0.43 H (0.24-0.36) K/mm3 Eos # (Auto) 0.01 L (0.04-0.36) K/mm3 Baso # (Auto) 0.02 (0.01-0.08) K/mm3 PT 10.7 (9.7-12.0) SECONDS INR 1.00 APTT 26.1 (21.7-31.4) SECONDS D-Dimer, Quantitative 2.76 H (0.19-0.50) mg/L Sodium (136-145) mEq/L Potassium (3.5-5.1) mEq/L Chloride (98-107) mEq/L Carbon Dioxide (21-32) mEq/L Anion Gap (5-15) BUN (7-18) mg/dL Creatinine (0.55-1.02) mg/dL Est Cr Clr Drug Dosing mL/min Estimated GFR (MDRD) (>60) mL/min BUN/Creatinine Ratio (14-18) Glucose (70-99) mg/dL Calcium (8.5-10.1) mg/dL Magnesium (1.8-2.4) mg/dL Total Bilirubin (0.2-1.0) mg/dL AST (15-37) U/L ALT (14-59) U/L Alkaline Phosphatase (46-116) U/L C-Reactive Protein 11.6 H* (<1.0) mg/dL Total Protein (6.4-8.2) g/dl Albumin (3.4-5.0) g/dl Globulin gm/dL Albumin/Globulin Ratio (1-2) 03/16/21 Range/Units 16:00 WBC (3.98-10.04) K/mm3 RBC (3.98-5.22) M/mm3 Hgb (11.2-15.7) gm/dl Hct (34.1-44.9) % MCV (79.4-94.8) fl MCH (25.6-32.2) pg MCHC (32.2-35.5) g/dl RDW Std Deviation (36.4-46.3) fL Plt Count (182-369) K/mm3 MPV (9.4-12.3) fl Neut % (Auto) (34.0-71.1) % Lymph % (Auto) (19.3-51.7) % [place] % (Auto) (4.7-12.5) % Eos % (Auto) (0.7-5.8) Baso % (Auto) (0.1-1.2) % Neut # (Auto) (1.56-6.13) K/mm3 Lymph # (Auto) (1.18-3.74) K/mm3 [place] # (Auto) (0.24-0.36) K/mm3 Eos # (Auto) (0.04-0.36) K/mm3 Baso # (Auto) (0.01-0.08) K/mm3 PT (9.7-12.0) SECONDS INR APTT (21.7-31.4) SECONDS D-Dimer, Quantitative (0.19-0.50) mg/L Sodium 139 (136-145) mEq/L Potassium 3.1 L (3.5-5.1) mEq/L Chloride 99 (98-107) mEq/L Carbon Dioxide 31 (21-32) mEq/L Anion Gap 12.1 (5-15) BUN 10 (7-18) mg/dL Creatinine 0.8 (0.55-1.02) mg/dL Est Cr Clr Drug Dosing 98.07 mL/min Estimated GFR (MDRD) > 60 (>60) mL/min BUN/Creatinine Ratio 12.5 L (14-18) Glucose 120 H (70-99) mg/dL Calcium 8.7 (8.5-10.1) mg/dL Magnesium 2.1 (1.8-2.4) mg/dL Total Bilirubin 0.9 (0.2-1.0) mg/dL AST 35 (15-37) U/L ALT 44 (14-59) U/L Alkaline Phosphatase 74 (46-116) U/L C-Reactive Protein (<1.0) mg/dL Total Protein 8.1 (6.4-8.2) g/dl Albumin 3.2 L (3.4-5.0) g/dl Globulin 4.9 gm/dL Albumin/Globulin Ratio 0.7 L (1-2) Meds: Medications Generic Name Dose Route Start Last Admin Trade Name Freq PRN Reason Stop Dose Admin Sodium Chloride 10 ml 03/16/21 16:01 03/16/21 16:28 Sodium Chloride 0.9% 10 Ml Syringe FLUSH 10 ml ASDIRECTED PRN Administration Keep Vein Open Discontinued Medications Generic Name Dose Route Start Last Admin Trade Name Freq PRN Reason Stop Dose Admin Dexamethasone 6 mg 03/16/21 16:14 03/16/21 16:28 Dexamethasone 10 Mg/Ml Sdv IVPUSH 03/16/21 16:15 6 mg ONETIME ONE Administration Remdesivir 200 mg/ Sodium 250 mls @ 250 mls/hr 03/16/21 16:14 03/16/21 16:28 Chloride IV 03/16/21 16:15 250 mls/hr ONETIME ONE Administration Potassium Chloride 40 meq 03/16/21 17:04 Potassium Chloride 20 Meq Tab.Er PO 03/16/21 17:05 ONETIME ONE - Re-Assessments/Exams Free Text/Narrative Re-Assessment/Exam: 03/16/21 16:13 The patient presents to the ER for her evaluation of COVID-19 symptoms. She is hypoxic at the time of triage, and is on oxygen at this time, due to her hypoxia she will likely need hospitalization, I did make her aware of this. 03/16/21 17:06 Laboratory evaluation demonstrates a CBC that is fairly unremarkable, CMP mostly unremarkable except potassium mildly low at 3.1, for which 40 mEq oral potassium has been ordered. D-dimer was elevated at 2.76, CRP is elevated at 11.6. I was made aware that we do have a bed in the hospital, I will try to call her hospitalist and talk with him about management for this patient. Patient's chest x-ray did show diffuse patchy infiltrates, consistent with a Covid pneumonia. This was reviewed by myself and Dr. Rodriguez however official radiology read is still pending. Departure - Departure Time of Disposition: 17:07 Disposition: Admitted As Inpatient 66 Condition: Good Clinical Impression: COVID-19 - Discharge Information Referrals: PCP,None [Primary Care Provider] - Forms: ED Department Discharge Sepsis Event Note (ED) - Evaluation Sepsis Screening Result: No Definite Risk - Focused Exam Vital Signs: Vital Signs Temp Pulse Resp BP Pulse Ox Pulse Ox 03/16/21 16:29 84 L 03/16/21 16:02 96.9 F 100 20 110/82 87 L - My Orders Last 24 Hours: My Active Orders 03/16/21 16:00 Chest 1V Frontal [CR] Stat 03/16/21 16:01 Peripheral IV Care [RC] . DIRECTED Sodium Chloride 0.9% [Saline Flush] 10 ml FLUSH ASDIRECTED PRN Peripheral IV Insertion Adult [OM.PC] Routine 03/16/21 16:11 Oxygen Therapy, ED [RC] ASDIRECTED - Assessment/Plan Last 24 Hours: My Active Orders 03/16/21 16:00 Chest 1V Frontal [CR] Stat 03/16/21 16:01 Peripheral IV Care [RC] . DIRECTED Sodium Chloride 0.9% [Saline Flush] 10 ml FLUSH ASDIRECTED PRN Peripheral IV Insertion Adult [OM.PC] Routine 03/16/21 16:11 Oxygen Therapy, ED [RC] ASDIRECTED
[2021-03-16] MEDS ORDERED: Potassium Chloride 20 MEQ Tab.ER PO ONE (17:04)
[2021-03-16] MEDS ORDERED: Docusate Sodium 100 MG Cap PO PRN (17:41)
[2021-03-16] MEDS ORDERED: oxyCODONE 5 MG Tab PO PRN (17:41)
[2021-03-16] MEDS ORDERED: Albuterol/Ipratropium 3.0-0.5 MG/3 ML Neb Soln NEB PRN (17:41)
[2021-03-16] MEDS ORDERED: Ondansetron 4 MG/2 ML SDV IV PRN (17:41)
[2021-03-16] MEDS ORDERED: Ondansetron 4 MG Tab.DIS PO PRN (17:41)
--- NOTE | 2021-03-16 17:54 | PCM.HP.2 ---
H&P History of Present Illness - General Date of Service: 03/16/21 Admit Problem/Dx: Admission Diagnosis/Problem Admission Diagnosis/Problem Pneumonia in infectious disease Source of Information: Patient History Limitations: Reports: No Limitations - History of Present Illness Initial Comments - Free Text/Narative: The patient is a 36-year-old lady who had presented to the emergency department with worsening Covid 19 symptoms. The patient was feeling short of breath. She had a pulse oximetry at home and she was noted to be in the 70 to 80% pulse oximetry at home. The patient was also hypoxic in the emergency department. The patient has a cough associated with this. Nausea has been reported but no vomiting. The patient had been previously treated with albuterol Tessalon Perles and guaifenesin with codeine and this is not helped her. She does not take any other medications. She has denied any fever or chills. No other complaints. Onset of Symptoms: Reports: Gradual Duration of Symptoms: Reports: Day(s): Location: Reports: Chest Quality: Reports: Ache Severity: Moderate Improves with: Reports: Rest Worsens with: Reports: Movement Context: Denies: Sick Contact Associated Symptoms: Reports: Headaches, Loss of Appetite Chest Pain Score (Numeric/FACES): 4 - Related Data Allergies/Adverse Reactions: Allergies Allergy/AdvReac Type Severity Reaction Status Date / Time No Known Allergies Allergy Verified 03/10/21 15:07 Home Medications: Home Meds Omeprazole 20 mg PO DAILY 11/09/17 [History] Albuterol Sulfate [Proair Hfa] 2 puff INH QID 03/16/21 [History] Benzonatate [Tessalon Perle] 100 mg PO Q6HR 03/16/21 [History] Codeine/guaiFENesin [Robitussin AC] 5 ml PO ASDIRECTED 03/16/21 [History] ondansetron HCL [Zofran] 4 mg PO ASDIRECTED 03/16/21 [History] Past Medical History HEENT History: Reports: Impaired Vision Cardiovascular History: Reports: None Respiratory History: Reports: None Gastrointestinal History: Reports: 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) Other Gastrointestinal History: abdominal pain of unknown cause at this time 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: , 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) Other OB/BYN History: gestational diabetes Musculoskeletal History: Reports: None Neurological History: Reports: None Endocrine/Metabolic History: Reports: Diabetes, Gestational Hematologic History: Reports: None Immunologic History: Reports: None Oncologic (Cancer) History: Reports: None - Infectious Disease History Infectious Disease History: Reports: Chicken Pox, Novel Coronavirus, Shingles - Past Surgical History Other HEENT Surgeries/Procedures: Pt wears Glasses Other Cardiovascular Surgeries/Procedures: Gestational HTN GI Surgical History: Reports: Cholecystectomy Other GI Surgeries/Procedures: Pt has had Polyps removed from her intestines in 2015 Endocrine Surgical History: Reports: None Social & Family History - Family History Family Medical History: No Pertinent Family History - Tobacco Use Tobacco Use Status *Q: Never Tobacco User - Caffeine Use Caffeine Use: Reports: Coffee, Energy Drinks Other Caffeine Use: very occasional energy drink or coffee Caffeine Use Comment: occasionally - Recreational Drug Use Recreational Drug Use: No - Living Situation & Occupation Living situation: Reports: , with Family Occupation: Employed H&P Review of Systems - Review of Systems: Review Of Systems: See Below General: Reports: Malaise, Weakness, Fatigue HEENT: Reports: No Symptoms Pulmonary: Reports: Shortness of Breath, Wheezing, Cough Cardiovascular: Reports: No Symptoms Gastrointestinal: Reports: Nausea Genitourinary: Reports: No Symptoms Musculoskeletal: Reports: No Symptoms Skin: Reports: No Symptoms Psychiatric: Reports: No Symptoms Neurological: Reports: No Symptoms Hematologic/Lymphatic: Reports: No Symptoms Immunologic: Reports: No Symptoms Exam - Exam Exam: See Below - Vital Signs Vital Signs: Last Vital Signs Temp 36.1 C 03/16/21 16:02 Pulse 100 03/16/21 16:02 Resp 20 03/16/21 16:02 BP 110/82 03/16/21 16:02 Pulse Ox 84 L 03/16/21 16:29 Weight: 99.79 kg - Exam Quality Assessment: Supplemental Oxygen, DVT Prophylaxis General: Alert, Oriented, Cooperative, Mild Distress HEENT: Conjunctiva Clear, EACs Clear, Hearing Intact, Mucosa Moist & Alix, Posterior Pharynx Clear, PERRLA Neck: Supple, Trachea Midline Lungs: Decreased Breath Sounds, Crackles (Scattered) Cardiovascular: Regular Rate, Regular Rhythm GI/Abdominal Exam: Normal Bowel Sounds, Soft, Non-Tender, No Distention (Female) Exam: Deferred Rectal (Female) Exam: Deferred Back Exam: Normal Inspection, Full Range of Motion Extremities: Normal Inspection, Normal Range of Motion, No Pedal Edema Skin: Warm, Dry, Intact Neurological: Cranial Nerves Intact, Normal Speech, Normal Tone Neuro Extensive - Mental Status: Alert, Oriented x3 Psychiatric: Alert, Normal Affect, Normal Mood - Patient Data Lab Results Last 24 hrs: Laboratory Results - last 24 hr 03/16/21 03/16/21 03/16/21 Range/Units 16:00 16:00 16:00 WBC 5.39 (3.98-10.04) K/mm3 RBC 4.66 (3.98-5.22) M/mm3 Hgb 12.9 (11.2-15.7) gm/dl Hct 39.9 (34.1-44.9) % MCV 85.6 (79.4-94.8) fl MCH 27.7 (25.6-32.2) pg MCHC 32.3 (32.2-35.5) g/dl RDW Std Deviation 42.9 (36.4-46.3) fL Plt Count 228 (182-369) K/mm3 MPV 9.8 (9.4-12.3) fl Neut % (Auto) 68.0 (34.0-71.1) % Lymph % (Auto) 23.2 (19.3-51.7) % [place] % (Auto) 8.0 (4.7-12.5) % Eos % (Auto) 0.2 L (0.7-5.8) Baso % (Auto) 0.4 (0.1-1.2) % Neut # (Auto) 3.67 (1.56-6.13) K/mm3 Lymph # (Auto) 1.25 (1.18-3.74) K/mm3 [place] # (Auto) 0.43 H (0.24-0.36) K/mm3 Eos # (Auto) 0.01 L (0.04-0.36) K/mm3 Baso # (Auto) 0.02 (0.01-0.08) K/mm3 Manual Slide Review PT 10.7 (9.7-12.0) SECONDS INR 1.00 APTT 26.1 (21.7-31.4) SECONDS D-Dimer, Quantitative 2.76 H (0.19-0.50) mg/L Sodium (136-145) mEq/L Potassium (3.5-5.1) mEq/L Chloride (98-107) mEq/L Carbon Dioxide (21-32) mEq/L Anion Gap (5-15) BUN (7-18) mg/dL Creatinine (0.55-1.02) mg/dL Est Cr Clr Drug Dosing mL/min Estimated GFR (MDRD) (>60) mL/min BUN/Creatinine Ratio (14-18) Glucose (70-99) mg/dL Calcium (8.5-10.1) mg/dL Magnesium (1.8-2.4) mg/dL Total Bilirubin (0.2-1.0) mg/dL AST (15-37) U/L ALT (14-59) U/L Alkaline Phosphatase (46-116) U/L C-Reactive Protein 11.6 H* (<1.0) mg/dL Total Protein (6.4-8.2) g/dl Albumin (3.4-5.0) g/dl Globulin gm/dL Albumin/Globulin Ratio (1-2) 03/16/21 Range/Units 16:00 WBC (3.98-10.04) K/mm3 RBC (3.98-5.22) M/mm3 Hgb (11.2-15.7) gm/dl Hct (34.1-44.9) % MCV (79.4-94.8) fl MCH (25.6-32.2) pg MCHC (32.2-35.5) g/dl RDW Std Deviation (36.4-46.3) fL Plt Count (182-369) K/mm3 MPV (9.4-12.3) fl Neut % (Auto) (34.0-71.1) % Lymph % (Auto) (19.3-51.7) % [place] % (Auto) (4.7-12.5) % Eos % (Auto) (0.7-5.8) Baso % (Auto) (0.1-1.2) % Neut # (Auto) (1.56-6.13) K/mm3 Lymph # (Auto) (1.18-3.74) K/mm3 [place] # (Auto) (0.24-0.36) K/mm3 Eos # (Auto) (0.04-0.36) K/mm3 Baso # (Auto) (0.01-0.08) K/mm3 Manual Slide Review PT (9.7-12.0) SECONDS INR APTT (21.7-31.4) SECONDS D-Dimer, Quantitative (0.19-0.50) mg/L Sodium 139 (136-145) mEq/L Potassium 3.1 L (3.5-5.1) mEq/L Chloride 99 (98-107) mEq/L Carbon Dioxide 31 (21-32) mEq/L Anion Gap 12.1 (5-15) BUN 10 (7-18) mg/dL Creatinine 0.8 (0.55-1.02) mg/dL Est Cr Clr Drug Dosing 98.07 mL/min Estimated GFR (MDRD) > 60 (>60) mL/min BUN/Creatinine Ratio 12.5 L (14-18) Glucose 120 H (70-99) mg/dL Calcium 8.7 (8.5-10.1) mg/dL Magnesium 2.1 (1.8-2.4) mg/dL Total Bilirubin 0.9 (0.2-1.0) mg/dL AST 35 (15-37) U/L ALT 44 (14-59) U/L Alkaline Phosphatase 74 (46-116) U/L C-Reactive Protein (<1.0) mg/dL Total Protein 8.1 (6.4-8.2) g/dl Albumin 3.2 L (3.4-5.0) g/dl Globulin 4.9 gm/dL Albumin/Globulin Ratio 0.7 L (1-2) Result Diagrams: 03/17/21 06:55 03/17/21 06:55 Sepsis Event Note - Evaluation Sepsis Screening Result: No Definite Risk - Focused Exam Vital Signs: Vital Signs Temp Pulse Resp BP Pulse Ox Pulse Ox 03/16/21 16:29 84 L 03/16/21 16:02 36.1 C 100 20 110/82 87 L - Problem List (1) Acute respiratory failure SNOMED Code(s): 11372202 ICD Code: J96.00 - ACUTE RESPIRATORY FAILURE, UNSP W HYPOXIA OR HYPERCAPNIA Status: Acute Priority: High Current Visit: Yes Qualifiers: Respiratory failure complication: hypoxia Qualified Code(s): J96.01 - Acute respiratory failure with hypoxia (2) Pneumonia due to COVID-19 virus SNOMED Code(s): 487594359069290038 ICD Code: U07.1 - COVID-19; J12.82 - PNEUMONIA DUE TO CORONAVIRUS DISEASE 2019 Status: Acute Priority: High Current Visit: Yes (3) Hypokalemia SNOMED Code(s): 00174583 ICD Code: E87.6 - HYPOKALEMIA Status: Acute Priority: High Current Visit: Yes Problem Details: Due to GI loss. Problem List Initiated/Reviewed/Updated: Yes Orders Last 24hrs: Active Orders 24 hr Category Date Time Status Patient Status [ADT] Routine ADT 03/16/21 17:43 Ordered Cardiac Monitoring [RC] CONTINUOUS Care 03/16/21 17:45 Ordered Oxygen Therapy [RC] PRN Care 03/16/21 17:43 Ordered Oxygen Therapy, ED [RC] ASDIRECTED Care 03/16/21 16:11 Active Peripheral IV Care [RC] . DIRECTED Care 03/16/21 16:01 Active RT Aerosol Therapy [RC] ASDIRECTED Care 03/16/21 17:49 Ordered Up ad Verito [RC] ASDIRECTED Care 03/16/21 17:41 Ordered VTE/DVT Education [RC] PER UNIT ROUTINE Care 03/16/21 17:43 Ordered Vital Signs [RC] Q4H Care 03/16/21 17:43 Ordered Regular Diet [DIET] Diet 03/17/21 Breakfast Ordered Chest 1V Frontal [CR] Stat Exams 03/16/21 16:00 Taken C-REACTIVE PROTEIN [CHEM] AM Lab 03/17/21 05:11 Ordered CBC WITH AUTO DIFF [HEME] AM Lab 03/17/21 05:11 Ordered COMPREHENSIVE METABOLIC PN,CMP [CHEM] AM Lab 03/17/21 05:11 Ordered D-DIMER QUANTITATIVE [COAG] AM Lab 03/17/21 05:11 Ordered MAGNESIUM [CHEM] AM Lab 03/17/21 05:11 Ordered Acetaminophen [TylenoL] Med 03/16/21 17:41 Ordered 650 mg PO Q4H PRN Albuterol/Ipratropium [DuoNeb 3.0-0.5 MG/3 ML] Med 03/16/21 17:41 Ordered 3 ml NEB Q4H PRN Docusate Sodium [Colace] Med 03/16/21 17:41 Ordered 100 mg PO BID PRN Enoxaparin [Lovenox] Med 03/16/21 17:45 Ordered 40 mg SUBCUT DAILY Ondansetron [Zofran ODT] Med 03/16/21 17:41 Ordered 4 mg PO Q4H PRN Ondansetron [Zofran] Med 03/16/21 17:41 Ordered 4 mg IV Q4H PRN Remdesivir 100 mg Med 03/17/21 17:45 Ordered Sodium Chloride 0.9% [Normal Saline] 100 ml IV Q24H Sodium Chloride 0.9% [Normal Saline] 1,000 ml Med 03/16/21 17:45 Ordered IV ASDIRECTED Sodium Chloride 0.9% [Saline Flush] Med 03/16/21 16:01 Active 10 ml FLUSH ASDIRECTED PRN Temazepam [Restoril] Med 03/16/21 17:41 Ordered 15 mg PO BEDTIME PRN cefTRIAXone [Rocephin] 2 gm Med 03/17/21 09:00 Ordered Sodium Chloride 0.9% [Normal Saline] 100 ml IV Q24H dexAMETHasone Med 03/17/21 09:00 Ordered 6 mg PO DAILY oxyCODONE Med 03/16/21 17:41 Ordered 5 mg PO Q4H PRN Peripheral IV Insertion Adult [OM.PC] Routine Oth 03/16/21 16:01 Ordered Resuscitation Status Routine Resus Stat 03/16/21 17:41 Ordered Medication Orders Enoxaparin Sodium (Enoxaparin 40 Mg/0.4 Ml Syringe) 40 mg SUBCUT DAILY [place] Sodium Chloride (Normal Saline) 1,000 mls @ 75 mls/hr IV ASDIRECTED [place] Sodium Chloride (Sodium Chloride 0.9% 10 Ml Syringe) 10 ml FLUSH ASDIRECTED PRN PRN Reason: Keep Vein Open Last Admin: 03/16/21 16:28 Dose: 10 ml Documented by: RENETTA Assessment/Plan Comment:: The patient is a 36-year-old lady who had failed outpatient treatment for her COVID-19. The patient does have evidence of pneumonia presently and she has also been admitted secondary to acute respiratory failure. The patient's pulse oximetry will be kept around 92% with oxygen titrated to achieve this. The patient will have her potassium replaced. She is on IV fluids normal saline at 75 mL/h. The patient had been started on remdesivir in the emergency department. The patient will also be started on remdesivir 100 mg IV daily starting tomorrow. She is also on dexamethasone which will be 6 mg p.o. starting tomorrow. DVT prophylaxis will be achieved with the use of 40 mg of Lo venox subcutaneously daily. The patient's nausea will also be addressed with Zofran 4 mg p.o. or IV every 4 hours as needed. Repeat laboratory studies have been ordered for the morning. The patient has regular diet as tolerated. She is also being instructed on the use of the Acapella and incentive spirometer. Patient should be appropriate for discharge upon completion of remdesivir. - Mortality Measure Prognosis:: Good
[2021-03-16] MEDS: Enoxaparin 40 MG/0.4 ML Syringe SUBCUT SCH (18:28)
[2021-03-16] MEDS: Sodium Chloride 0.9% 1,000 ML IV SCH (18:29)
[2021-03-16] MEDS: Acetaminophen 325 MG Tab PO PRN (19:46)
[2021-03-17] MEDS: Albuterol 6.7 GM Inhaler INH PRN ×4 (06:29→20:29)
--- NOTE | 2021-03-17 06:56 | PCM.PN ---
- General Info Date of Service: 03/17/21 Admission Dx/Problem (Free Text): Admission Diagnosis/Problem Admission Diagnosis/Problem Pneumonia in infectious disease Subjective Update: The patient is a 36-year-old lady who had been admitted to acute hospitalization for the treatment of COVID-19 pneumonia. She has required oxygen and become short of breath rather quickly. The patient herself says that she is feeling somewhat better today. She has been tolerating her diet. The patient reports that she still has some nausea but no vomiting. She has a cough and wheezing. She denies any new pain. No other complaints today. Functional Status: Reports: Pain Controlled, Tolerating Diet - Review of Systems General: Reports: Weakness, Fatigue HEENT: Reports: No Symptoms Pulmonary: Reports: Shortness of Breath, Cough, Wheezing Cardiovascular: Reports: No Symptoms Gastrointestinal: Reports: Nausea Genitourinary: Reports: No Symptoms Musculoskeletal: Reports: No Symptoms Skin: Reports: No Symptoms Neurological: Reports: No Symptoms Psychiatric: Reports: No Symptoms - Patient Data Vitals - Most Recent: Last Vital Signs Temp 36.8 C 03/16/21 23:03 Pulse 92 03/16/21 23:03 Resp 22 H 03/16/21 23:03 BP 118/72 03/16/21 23:03 Pulse Ox 92 L 03/17/21 06:31 Weight - Most Recent: 100.017 kg I&O - Last 24 Hours: Intake & Output 03/16/21 03/16/21 03/17/21 14:59 22:59 06:59 Intake Total 1100 Balance 1100 Lab Results Last 24 Hours: Laboratory Results - last 24 hr 03/16/21 03/16/21 03/16/21 Range/Units 16:00 16:00 16:00 WBC 5.39 (3.98-10.04) K/mm3 RBC 4.66 (3.98-5.22) M/mm3 Hgb 12.9 (11.2-15.7) gm/dl Hct 39.9 (34.1-44.9) % MCV 85.6 (79.4-94.8) fl MCH 27.7 (25.6-32.2) pg MCHC 32.3 (32.2-35.5) g/dl RDW Std Deviation 42.9 (36.4-46.3) fL Plt Count 228 (182-369) K/mm3 MPV 9.8 (9.4-12.3) fl Neut % (Auto) 68.0 (34.0-71.1) % Lymph % (Auto) 23.2 (19.3-51.7) % Love % (Auto) 8.0 (4.7-12.5) % Eos % (Auto) 0.2 L (0.7-5.8) Baso % (Auto) 0.4 (0.1-1.2) % Neut # (Auto) 3.67 (1.56-6.13) K/mm3 Lymph # (Auto) 1.25 (1.18-3.74) K/mm3 Love # (Auto) 0.43 H (0.24-0.36) K/mm3 Eos # (Auto) 0.01 L (0.04-0.36) K/mm3 Baso # (Auto) 0.02 (0.01-0.08) K/mm3 Manual Slide Review PT 10.7 (9.7-12.0) SECONDS INR 1.00 APTT 26.1 (21.7-31.4) SECONDS D-Dimer, Quantitative 2.76 H (0.19-0.50) mg/L Sodium (136-145) mEq/L Potassium (3.5-5.1) mEq/L Chloride (98-107) mEq/L Carbon Dioxide (21-32) mEq/L Anion Gap (5-15) BUN (7-18) mg/dL Creatinine (0.55-1.02) mg/dL Est Cr Clr Drug Dosing mL/min Estimated GFR (MDRD) (>60) mL/min BUN/Creatinine Ratio (14-18) Glucose (70-99) mg/dL Calcium (8.5-10.1) mg/dL Magnesium (1.8-2.4) mg/dL Total Bilirubin (0.2-1.0) mg/dL AST (15-37) U/L ALT (14-59) U/L Alkaline Phosphatase (46-116) U/L C-Reactive Protein 11.6 H* (<1.0) mg/dL Total Protein (6.4-8.2) g/dl Albumin (3.4-5.0) g/dl Globulin gm/dL Albumin/Globulin Ratio (1-2) // Range/Units 16:00 WBC (3.98-10.04) K/mm3 RBC (3.98-5.22) M/mm3 Hgb (11.2-15.7) gm/dl Hct (34.1-44.9) % MCV (79.4-94.8) fl MCH (25.6-32.2) pg MCHC (32.2-35.5) g/dl RDW Std Deviation (36.4-46.3) fL Plt Count (182-369) K/mm3 MPV (9.4-12.3) fl Neut % (Auto) (34.0-71.1) % Lymph % (Auto) (19.3-51.7) % Love % (Auto) (4.7-12.5) % Eos % (Auto) (0.7-5.8) Baso % (Auto) (0.1-1.2) % Neut # (Auto) (1.56-6.13) K/mm3 Lymph # (Auto) (1.18-3.74) K/mm3 Love # (Auto) (0.24-0.36) K/mm3 Eos # (Auto) (0.04-0.36) K/mm3 Baso # (Auto) (0.01-0.08) K/mm3 Manual Slide Review PT (9.7-12.0) SECONDS INR APTT (21.7-31.4) SECONDS D-Dimer, Quantitative (0.19-0.50) mg/L Sodium 139 (136-145) mEq/L Potassium 3.1 L (3.5-5.1) mEq/L Chloride 99 (98-107) mEq/L Carbon Dioxide 31 (21-32) mEq/L Anion Gap 12.1 (5-15) BUN 10 (7-18) mg/dL Creatinine 0.8 (0.55-1.02) mg/dL Est Cr Clr Drug Dosing 98.07 mL/min Estimated GFR (MDRD) > 60 (>60) mL/min BUN/Creatinine Ratio 12.5 L (14-18) Glucose 120 H (70-99) mg/dL Calcium 8.7 (8.5-10.1) mg/dL Magnesium 2.1 (1.8-2.4) mg/dL Total Bilirubin 0.9 (0.2-1.0) mg/dL AST 35 (15-37) U/L ALT 44 (14-59) U/L Alkaline Phosphatase 74 (46-116) U/L C-Reactive Protein (<1.0) mg/dL Total Protein 8.1 (6.4-8.2) g/dl Albumin 3.2 L (3.4-5.0) g/dl Globulin 4.9 gm/dL Albumin/Globulin Ratio 0.7 L (1-2) Med Orders - Current: Current Medications Acetaminophen (Acetaminophen 325 Mg Tab) 650 mg PO Q4H PRN PRN Reason: Pain (Mild 1-3)/fever Last Admin: 03/16/21 19:46 Dose: 650 mg Documented by: Albuterol (Albuterol 6.7 Gm Inhaler) 0 gm INH Q4H PRN PRN Reason: SOB/WHEEZING Last Admin: 03/17/21 06:29 Dose: 2 puff Documented by: Albuterol/Ipratropium (Albuterol/Ipratropium 3.0-0.5 Mg/3 Ml Neb Soln) 3 ml NEB Q4H PRN PRN Reason: Shortness Of Breath/wheezing Dexamethasone (Dexamethasone 4 Mg Tab) 6 mg PO DAILY [facility] Docusate Sodium (Docusate Sodium 100 Mg Cap) 100 mg PO BID PRN PRN Reason: Constipation Enoxaparin Sodium (Enoxaparin 40 Mg/0.4 Ml Syringe) 40 mg SUBCUT DAILY [facility] Last Admin: 03/16/21 18:28 Dose: 40 mg Documented by: Sodium Chloride (Normal Saline) 1,000 mls @ 75 mls/hr IV ASDIRECTED [facility] Last Admin: 03/16/21 18:29 Dose: 75 mls/hr Documented by: Remdesivir 100 mg/ Sodium (Chloride) 100 mls @ 100 mls/hr IV Q24H [facility] Stop: 03/20/21 18:44 Ceftriaxone Sodium 2 gm/ (Sodium Chloride) 100 mls @ 200 mls/hr IV Q24H [facility] Ondansetron HCl (Ondansetron 4 Mg Tab.Dis) 4 mg PO Q4H PRN PRN Reason: nausea, able to take PO Ondansetron HCl (Ondansetron 4 Mg/2 Ml Sdv) 4 mg IV Q4H PRN PRN Reason: Nausea/Vomiting Oxycodone HCl (Oxycodone 5 Mg Tab) 5 mg PO Q4H PRN PRN Reason: Pain (moderate 4-6) Sodium Chloride (Sodium Chloride 0.9% 10 Ml Syringe) 10 ml FLUSH ASDIRECTED PRN PRN Reason: Keep Vein Open Last Admin: 03/16/21 16:28 Dose: 10 ml Documented by: Temazepam (Temazepam 15 Mg Cap) 15 mg PO BEDTIME PRN PRN Reason: Sleep Discontinued Medications Dexamethasone (Dexamethasone 10 Mg/Ml Sdv) 6 mg IVPUSH ONETIME ONE Stop: 03/16/21 16:15 Last Admin: 03/16/21 16:28 Dose: 6 mg Documented by: Remdesivir 200 mg/ Sodium (Chloride) 250 mls @ 250 mls/hr IV ONETIME ONE Stop: 03/16/21 16:15 Last Admin: 03/16/21 16:28 Dose: 250 mls/hr Documented by: Potassium Chloride (Potassium Chloride 20 Meq Tab.Er) 40 meq PO ONETIME ONE Stop: 03/16/21 17:05 Last Admin: 03/16/21 17:09 Dose: 40 meq Documented by: - Exam Quality Assessment: Supplemental Oxygen, DVT Prophylaxis General: Alert, Oriented, Cooperative, No Acute Distress HEENT: Pupils Equal, Pupils Reactive, EOMI, Mucous Membr. Moist/Cornucopia Neck: Supple, Trachea Midline Lungs: Decreased Breath Sounds, Crackles, Rales Cardiovascular: Regular Rate, Regular Rhythm GI/Abdominal Exam: Normal Bowel Sounds, Soft, Non-Tender, No Distention (Female) Exam: Deferred Back Exam: Normal Inspection, Full Range of Motion Extremities: Normal Inspection, Normal Range of Motion, No Pedal Edema Skin: Warm, Dry, Intact Neurological: No New Focal Deficit, Normal Gait, Normal Speech, Normal Tone Psy/Mental Status: Alert, Normal Affect, Normal Mood - Patient Data Lab Results Last 24 hrs: Laboratory Results - last 24 hr 03/16/21 03/16/21 03/16/21 Range/Units 16:00 16:00 16:00 WBC 5.39 (3.98-10.04) K/mm3 RBC 4.66 (3.98-5.22) M/mm3 Hgb 12.9 (11.2-15.7) gm/dl Hct 39.9 (34.1-44.9) % MCV 85.6 (79.4-94.8) fl MCH 27.7 (25.6-32.2) pg MCHC 32.3 (32.2-35.5) g/dl RDW Std Deviation 42.9 (36.4-46.3) fL Plt Count 228 (182-369) K/mm3 MPV 9.8 (9.4-12.3) fl Neut % (Auto) 68.0 (34.0-71.1) % Lymph % (Auto) 23.2 (19.3-51.7) % Love % (Auto) 8.0 (4.7-12.5) % Eos % (Auto) 0.2 L (0.7-5.8) Baso % (Auto) 0.4 (0.1-1.2) % Neut # (Auto) 3.67 (1.56-6.13) K/mm3 Lymph # (Auto) 1.25 (1.18-3.74) K/mm3 Love # (Auto) 0.43 H (0.24-0.36) K/mm3 Eos # (Auto) 0.01 L (0.04-0.36) K/mm3 Baso # (Auto) 0.02 (0.01-0.08) K/mm3 Manual Slide Review PT 10.7 (9.7-12.0) SECONDS INR 1.00 APTT 26.1 (21.7-31.4) SECONDS D-Dimer, Quantitative 2.76 H (0.19-0.50) mg/L Sodium (136-145) mEq/L Potassium (3.5-5.1) mEq/L Chloride (98-107) mEq/L Carbon Dioxide (21-32) mEq/L Anion Gap (5-15) BUN (7-18) mg/dL Creatinine (0.55-1.02) mg/dL Est Cr Clr Drug Dosing mL/min Estimated GFR (MDRD) (>60) mL/min BUN/Creatinine Ratio (14-18) Glucose (70-99) mg/dL Calcium (8.5-10.1) mg/dL Magnesium (1.8-2.4) mg/dL Total Bilirubin (0.2-1.0) mg/dL AST (15-37) U/L ALT (14-59) U/L Alkaline Phosphatase (46-116) U/L C-Reactive Protein 11.6 H* (<1.0) mg/dL Total Protein (6.4-8.2) g/dl Albumin (3.4-5.0) g/dl Globulin gm/dL Albumin/Globulin Ratio (1-2) 03/16/ Range/Units 16:00 WBC (3.98-10.04) K/mm3 RBC (3.98-5.22) M/mm3 Hgb (11.2-15.7) gm/dl Hct (34.1-44.9) % MCV (79.4-94.8) fl MCH (25.6-32.2) pg MCHC (32.2-35.5) g/dl RDW Std Deviation (36.4-46.3) fL Plt Count (182-369) K/mm3 MPV (9.4-12.3) fl Neut % (Auto) (34.0-71.1) % Lymph % (Auto) (19.3-51.7) % Love % (Auto) (4.7-12.5) % Eos % (Auto) (0.7-5.8) Baso % (Auto) (0.1-1.2) % Neut # (Auto) (1.56-6.13) K/mm3 Lymph # (Auto) (1.18-3.74) K/mm3 Love # (Auto) (0.24-0.36) K/mm3 Eos # (Auto) (0.04-0.36) K/mm3 Baso # (Auto) (0.01-0.08) K/mm3 Manual Slide Review PT (9.7-12.0) SECONDS INR APTT (21.7-31.4) SECONDS D-Dimer, Quantitative (0.19-0.50) mg/L Sodium 139 (136-145) mEq/L Potassium 3.1 L (3.5-5.1) mEq/L Chloride 99 (98-107) mEq/L Carbon Dioxide 31 (21-32) mEq/L Anion Gap 12.1 (5-15) BUN 10 (7-18) mg/dL Creatinine 0.8 (0.55-1.02) mg/dL Est Cr Clr Drug Dosing 98.07 mL/min Estimated GFR (MDRD) > 60 (>60) mL/min BUN/Creatinine Ratio 12.5 L (14-18) Glucose 120 H (70-99) mg/dL Calcium 8.7 (8.5-10.1) mg/dL Magnesium 2.1 (1.8-2.4) mg/dL Total Bilirubin 0.9 (0.2-1.0) mg/dL AST 35 (15-37) U/L ALT 44 (14-59) U/L Alkaline Phosphatase 74 (46-116) U/L C-Reactive Protein (<1.0) mg/dL Total Protein 8.1 (6.4-8.2) g/dl Albumin 3.2 L (3.4-5.0) g/dl Globulin 4.9 gm/dL Albumin/Globulin Ratio 0.7 L (1-2) Result Diagrams: 03/17/21 06:55 03/17/21 06:55 Sepsis Event Note - Evaluation Sepsis Screening Result: Possible Sepsis Risk - Focused Exam Vital Signs: Vital Signs Temp Pulse Resp BP Pulse Ox Pulse Ox 03/17/21 06:31 92 L 03/16/21 23:03 36.8 C 92 22 H 118/72 91 L 03/16/21 21:01 93 L 03/16/21 19:46 37.8 C 03/16/21 19:44 37.8 C 90 18 130/56 L 93 L - Problem List & Annotations (1) Acute respiratory failure SNOMED Code(s): 42889415 Code(s): J96.00 - ACUTE RESPIRATORY FAILURE, UNSP W HYPOXIA OR HYPERCAPNIA Status: Acute Priority: High Current Visit: Yes Qualifiers: Respiratory failure complication: hypoxia Qualified Code(s): J96.01 - Acute respiratory failure with hypoxia (2) Pneumonia due to COVID-19 virus SNOMED Code(s): 566795688081553217 Code(s): U07.1 - COVID-19; J12.82 - PNEUMONIA DUE TO CORONAVIRUS DISEASE 2019 Status: Acute Priority: High Current Visit: Yes - Problem List Review Problem List Initiated/Reviewed/Updated: Yes - My Orders Last 24 Hours: My Active Orders 03/16/21 17:41 Up ad Verito [RC] QSHIFT Acetaminophen [TylenoL] 650 mg PO Q4H PRN Albuterol/Ipratropium [DuoNeb 3.0-0.5 MG/3 ML] 3 ml NEB Q4H PRN Docusate Sodium [Colace] 100 mg PO BID PRN Ondansetron [Zofran ODT] 4 mg PO Q4H PRN Ondansetron [Zofran] 4 mg IV Q4H PRN Temazepam [Restoril] 15 mg PO BEDTIME PRN oxyCODONE 5 mg PO Q4H PRN Resuscitation Status Routine 03/16/21 17:43 Patient Status [ADT] Routine Oxygen Therapy [RC] PRN VTE/DVT Education [RC] 03/16/21 17:45 Cardiac Monitoring [RC] CONTINUOUS Enoxaparin [Lovenox] 40 mg SUBCUT DAILY Sodium Chloride 0.9% [Normal Saline] 1,000 ml IV ASDIRECTED 03/16/21 17:49 RT Aerosol Therapy [RC] ASDIRECTED 03/16/21 17:55 Incentive Spirometry [RT Incentive Spirometry] [RC] Q1HWA Albuterol [Proventil HFA] See Dose Instructions INH Q4H PRN 03/16/21 17:56 Chest Physiotherapy [RT Chest Physiotherapy] [RC] ASDIRECTED 03/17/21 05:11 C-REACTIVE PROTEIN [CHEM] AM CBC WITH AUTO DIFF [HEME] AM COMPREHENSIVE METABOLIC PN,CMP [CHEM] AM D-DIMER QUANTITATIVE [COAG] AM MAGNESIUM [CHEM] AM 03/17/21 Breakfast Regular Diet [DIET] 03/17/21 09:00 cefTRIAXone [Rocephin] 2 gm Sodium Chloride 0.9% [Normal Saline] 100 ml IV Q24H dexAMETHasone 6 mg PO DAILY 03/17/21 17:45 Remdesivir 100 mg Sodium Chloride 0.9% [Normal Saline] 100 ml IV Q24H - Assessment Assessment:: The patient is a 36-year-old lady who has been admitted as an inpatient due to COVID-19 pneumonia. She will continue as an inpatient at least until completion of remdesivir. Steroids consisting of dexamethasone 6 mg daily p.o. we will continue for at least 10 days. The patient has been instructed in the use of incentive spirometer and the Acapella. The patient's oxygen to be titrated to keep her oxygen saturations around 92%. Respiratory therapy has been working with the patient. The patient's previously noted hypokalemia has been resolved. Repeat laboratory testings have been ordered. She has had an elevated CRP and this will be repeated tomorrow. She has been encouraged to ambulate in the room. She is also on DVT prophylaxis due to elevated D-dimer. Continue with current diet as tolerated.
[2021-03-17] MEDS: Sodium Chloride 0.9% 1,000 ML IV SCH (08:03)
[2021-03-17] MEDS ORDERED: cefTRIAXone 2 GM in Sodium Chloride 0.9% 100 ML IV SCH (09:00)
[2021-03-17] MEDS: Dexamethasone 4 MG Tab PO SCH (09:09)
[2021-03-17] MEDS: Enoxaparin 40 MG/0.4 ML Syringe SUBCUT SCH (09:10)
[2021-03-17] MEDS: cefTRIAXone 2 GM in Sodium Chloride 0.9% 100 ML IV SCH (09:10)
[2021-03-17] MEDS: REMDESIVIR 100 MG in Sodium Chloride 0.9% 100 ML IV SCH (17:09)
[2021-03-17] MEDS: Codeine/guaiFENesin 10-100 MG/5 ML Syrup 5 ML Cup PO PRN (21:00)
[2021-03-17] MEDS: Temazepam 15 MG Cap PO PRN (21:00)
--- NOTE | 2021-03-18 07:10 | PCM.PN ---
- General Info Date of Service: 03/18/21 Admission Dx/Problem (Free Text): Admission Diagnosis/Problem Admission Diagnosis/Problem Pneumonia in infectious disease Subjective Update: The patient is a 36-year-old lady who had presented to the emergency department and was admitted to acute hospitalization on March 16, 2021. The patient had been treated as an outpatient for the COVID-19 pneumonia and she had worsened over time. Today the patient says that she has been having difficulty with coughing and says that she is not feeling better. The patient has reported some body aches. She has had no fever or chills. The patient has been tolerating diet. Functional Status: Reports: Pain Controlled, Tolerating Diet - Review of Systems General: Reports: Fatigue, Malaise HEENT: Reports: No Symptoms Pulmonary: Reports: Shortness of Breath, Pleuritic Chest Pain, Cough (Paroxysmal coughing) Cardiovascular: Reports: No Symptoms Gastrointestinal: Reports: No Symptoms Genitourinary: Reports: No Symptoms Musculoskeletal: Reports: No Symptoms Skin: Reports: No Symptoms Neurological: Reports: No Symptoms Psychiatric: Reports: No Symptoms - Patient Data Vitals - Most Recent: Last Vital Signs Temp 36.6 C 03/18/21 05:32 Pulse 69 03/18/21 05:32 Resp 24 H 03/18/21 05:32 BP 111/53 L 03/18/21 05:32 Pulse Ox 96 03/18/21 05:32 Weight - Most Recent: 101.514 kg I&O - Last 24 Hours: Intake & Output 03/17/21 03/18/21 03/18/21 22:59 06:59 14:59 Intake Total 1581 600 Output Total 500 400 Balance 1081 200 Lab Results Last 24 Hours: Laboratory Results - last 24 hr 03/17/21 03/17/21 03/17/21 Range/Units 06:55 06:55 06:55 WBC 3.40 L (3.98-10.04) K/mm3 RBC 4.41 (3.98-5.22) M/mm3 Hgb 12.2 (11.2-15.7) gm/dl Hct 38.0 (34.1-44.9) % MCV 86.2 (79.4-94.8) fl MCH 27.7 (25.6-32.2) pg MCHC 32.1 L (32.2-35.5) g/dl RDW Std Deviation 43.2 (36.4-46.3) fL Plt Count 212 (182-369) K/mm3 MPV 10.2 (9.4-12.3) fl Neut % (Auto) 61.4 (34.0-71.1) % Lymph % (Auto) 27.4 (19.3-51.7) % [place] % (Auto) 10.6 (4.7-12.5) % Eos % (Auto) 0 L (0.7-5.8) Baso % (Auto) 0.3 (0.1-1.2) % Neut # (Auto) 2.09 (1.56-6.13) K/mm3 Lymph # (Auto) 0.93 L (1.18-3.74) K/mm3 [place] # (Auto) 0.36 (0.24-0.36) K/mm3 Eos # (Auto) 0.00 L (0.04-0.36) K/mm3 Baso # (Auto) 0.01 (0.01-0.08) K/mm3 Manual Slide Review Abnormal smear D-Dimer, Quantitative 2.15 H (0.19-0.50) mg/L Sodium 140 (136-145) mEq/L Potassium 3.8 (3.5-5.1) mEq/L Chloride 104 (98-107) mEq/L Carbon Dioxide 25 (21-32) mEq/L Anion Gap 14.8 (5-15) BUN 10 (7-18) mg/dL Creatinine 0.6 (0.55-1.02) mg/dL Est Cr Clr Drug Dosing 130.76 mL/min Estimated GFR (MDRD) > 60 (>60) mL/min BUN/Creatinine Ratio 16.7 (14-18) Glucose 126 H (70-99) mg/dL Calcium 8.6 (8.5-10.1) mg/dL Magnesium 2.1 (1.8-2.4) mg/dL Total Bilirubin 0.7 (0.2-1.0) mg/dL AST 25 (15-37) U/L ALT 41 (14-59) U/L Alkaline Phosphatase 66 (46-116) U/L C-Reactive Protein 11.8 H* (<1.0) mg/dL Total Protein 7.4 (6.4-8.2) g/dl Albumin 2.8 L (3.4-5.0) g/dl Globulin 4.6 gm/dL Albumin/Globulin Ratio 0.6 L (1-2) 03/18/ Range/Units 06:39 WBC 7.25 (3.98-10.04) K/mm3 RBC 4.33 (3.98-5.22) M/mm3 Hgb 11.9 (11.2-15.7) gm/dl Hct 37.6 (34.1-44.9) % MCV 86.8 (79.4-94.8) fl MCH 27.5 (25.6-32.2) pg MCHC 31.6 L (32.2-35.5) g/dl RDW Std Deviation 43.4 (36.4-46.3) fL Plt Count 275 (182-369) K/mm3 MPV 9.7 (9.4-12.3) fl Neut % (Auto) 72.3 H (34.0-71.1) % Lymph % (Auto) 17.8 L (19.3-51.7) % [place] % (Auto) 9.2 (4.7-12.5) % Eos % (Auto) 0.1 L (0.7-5.8) Baso % (Auto) 0.3 (0.1-1.2) % Neut # (Auto) 5.24 (1.56-6.13) K/mm3 Lymph # (Auto) 1.29 (1.18-3.74) K/mm3 [place] # (Auto) 0.67 H (0.24-0.36) K/mm3 Eos # (Auto) 0.01 L (0.04-0.36) K/mm3 Baso # (Auto) 0.02 (0.01-0.08) K/mm3 Manual Slide Review D-Dimer, Quantitative (0.19-0.50) mg/L Sodium (136-145) mEq/L Potassium (3.5-5.1) mEq/L Chloride (98-107) mEq/L Carbon Dioxide (21-32) mEq/L Anion Gap (5-15) BUN (7-18) mg/dL Creatinine (0.55-1.02) mg/dL Est Cr Clr Drug Dosing mL/min Estimated GFR (MDRD) (>60) mL/min BUN/Creatinine Ratio (14-18) Glucose (70-99) mg/dL Calcium (8.5-10.1) mg/dL Magnesium (1.8-2.4) mg/dL Total Bilirubin (0.2-1.0) mg/dL AST (15-37) U/L ALT (14-59) U/L Alkaline Phosphatase (46-116) U/L C-Reactive Protein (<1.0) mg/dL Total Protein (6.4-8.2) g/dl Albumin (3.4-5.0) g/dl Globulin gm/dL Albumin/Globulin Ratio (1-2) Med Orders - Current: Current Medications Acetaminophen (Acetaminophen 325 Mg Tab) 650 mg PO Q4H PRN PRN Reason: Pain (Mild 1-3)/fever Last Admin: 03/16/21 19:46 Dose: 650 mg Documented by: Albuterol (Albuterol 6.7 Gm Inhaler) 0 gm INH Q4H PRN PRN Reason: SOB/WHEEZING Last Admin: 03/17/21 20:29 Dose: 2 puff Documented by: Albuterol/Ipratropium (Albuterol/Ipratropium 3.0-0.5 Mg/3 Ml Neb Soln) 3 ml NEB Q4H PRN PRN Reason: Shortness Of Breath/wheezing Dexamethasone (Dexamethasone 4 Mg Tab) 6 mg PO DAILY [facility] Last Admin: 03/17/21 09:09 Dose: 6 mg Documented by: Docusate Sodium (Docusate Sodium 100 Mg Cap) 100 mg PO BID PRN PRN Reason: Constipation Enoxaparin Sodium (Enoxaparin 40 Mg/0.4 Ml Syringe) 40 mg SUBCUT DAILY [facility] Last Admin: 03/17/21 09:10 Dose: 40 mg Documented by: Guaifenesin/Codeine Phosphate (Codeine/Guaifenesin 10-100 Mg/5 Ml Syrup 5 Ml Cup) 5 ml PO Q4H PRN PRN Reason: Cough Last Admin: 03/17/21 21:00 Dose: 5 ml Documented by: Remdesivir 100 mg/ Sodium (Chloride) 100 mls @ 100 mls/hr IV Q24H [facility] Stop: 03/20/21 18:44 Last Admin: 03/17/21 17:09 Dose: 100 mls/hr Documented by: Ceftriaxone Sodium 2 gm/ (Sodium Chloride) 100 mls @ 200 mls/hr IV Q24H [facility] Last Admin: 03/17/21 09:10 Dose: 200 mls/hr Documented by: Ondansetron HCl (Ondansetron 4 Mg Tab.Dis) 4 mg PO Q4H PRN PRN Reason: nausea, able to take PO Ondansetron HCl (Ondansetron 4 Mg/2 Ml Sdv) 4 mg IV Q4H PRN PRN Reason: Nausea/Vomiting Oxycodone HCl (Oxycodone 5 Mg Tab) 5 mg PO Q4H PRN PRN Reason: Pain (moderate 4-6) Sodium Chloride (Sodium Chloride 0.9% 10 Ml Syringe) 10 ml FLUSH ASDIRECTED PRN PRN Reason: Keep Vein Open Last Admin: 03/16/21 16:28 Dose: 10 ml Documented by: Temazepam (Temazepam 15 Mg Cap) 15 mg PO BEDTIME PRN PRN Reason: Sleep Last Admin: 03/17/21 21:00 Dose: 15 mg Documented by: Discontinued Medications Dexamethasone (Dexamethasone 10 Mg/Ml Sdv) 6 mg IVPUSH ONETIME ONE Stop: 03/16/21 16:15 Last Admin: 03/16/21 16:28 Dose: 6 mg Documented by: Remdesivir 200 mg/ Sodium (Chloride) 250 mls @ 250 mls/hr IV ONETIME ONE Stop: 03/16/21 16:15 Last Admin: 03/16/21 16:28 Dose: 250 mls/hr Documented by: Sodium Chloride (Normal Saline) 1,000 mls @ 75 mls/hr IV ASDIRECTED [facility] Last Admin: 03/17/21 08:03 Dose: 75 mls/hr Documented by: Ceftriaxone Sodium 2 gm/ (Sodium Chloride) 100 mls @ 200 mls/hr IV Q24H [facility] Potassium Chloride (Potassium Chloride 20 Meq Tab.Er) 40 meq PO ONETIME ONE Stop: 03/16/21 17:05 Last Admin: 03/16/21 17:09 Dose: 40 meq Documented by: - Exam Quality Assessment: Supplemental Oxygen, DVT Prophylaxis General: Alert, Oriented, Cooperative, Mild Distress, Other (Coughing heavily) HEENT: Pupils Equal, Pupils Reactive, EOMI. No: Mucous Membr. Moist/[place] (Dry) Neck: Supple, Trachea Midline Lungs: Normal Respiratory Effort, Crackles, Rales Cardiovascular: Regular Rate, Regular Rhythm GI/Abdominal Exam: Normal Bowel Sounds, Soft, Non-Tender, No Distention (Female) Exam: Deferred Back Exam: Normal Inspection, Full Range of Motion Extremities: Normal Inspection, Normal Range of Motion, No Pedal Edema Skin: Warm, Dry, Intact Neurological: No New Focal Deficit, Normal Speech Psy/Mental Status: Alert, Normal Affect, Normal Mood - Patient Data Lab Results Last 24 hrs: Laboratory Results - last 24 hr 03/17/21 03/17/21 03/17/21 Range/Units 06:55 06:55 06:55 WBC 3.40 L (3.98-10.04) K/mm3 RBC 4.41 (3.98-5.22) M/mm3 Hgb 12.2 (11.2-15.7) gm/dl Hct 38.0 (34.1-44.9) % MCV 86.2 (79.4-94.8) fl MCH 27.7 (25.6-32.2) pg MCHC 32.1 L (32.2-35.5) g/dl RDW Std Deviation 43.2 (36.4-46.3) fL Plt Count 212 (182-369) K/mm3 MPV 10.2 (9.4-12.3) fl Neut % (Auto) 61.4 (34.0-71.1) % Lymph % (Auto) 27.4 (19.3-51.7) % [place] % (Auto) 10.6 (4.7-12.5) % Eos % (Auto) 0 L (0.7-5.8) Baso % (Auto) 0.3 (0.1-1.2) % Neut # (Auto) 2.09 (1.56-6.13) K/mm3 Lymph # (Auto) 0.93 L (1.18-3.74) K/mm3 [place] # (Auto) 0.36 (0.24-0.36) K/mm3 Eos # (Auto) 0.00 L (0.04-0.36) K/mm3 Baso # (Auto) 0.01 (0.01-0.08) K/mm3 Manual Slide Review Abnormal smear D-Dimer, Quantitative 2.15 H (0.19-0.50) mg/L Sodium 140 (136-145) mEq/L Potassium 3.8 (3.5-5.1) mEq/L Chloride 104 (98-107) mEq/L Carbon Dioxide 25 (21-32) mEq/L Anion Gap 14.8 (5-15) BUN 10 (7-18) mg/dL Creatinine 0.6 (0.55-1.02) mg/dL Est Cr Clr Drug Dosing 130.76 mL/min Estimated GFR (MDRD) > 60 (>60) mL/min BUN/Creatinine Ratio 16.7 (14-18) Glucose 126 H (70-99) mg/dL Calcium 8.6 (8.5-10.1) mg/dL Magnesium 2.1 (1.8-2.4) mg/dL Total Bilirubin 0.7 (0.2-1.0) mg/dL AST 25 (15-37) U/L ALT 41 (14-59) U/L Alkaline Phosphatase 66 (46-116) U/L C-Reactive Protein 11.8 H* (<1.0) mg/dL Total Protein 7.4 (6.4-8.2) g/dl Albumin 2.8 L (3.4-5.0) g/dl Globulin 4.6 gm/dL Albumin/Globulin Ratio 0.6 L (1-2) 03/18/ Range/Units 06:39 WBC 7.25 (3.98-10.04) K/mm3 RBC 4.33 (3.98-5.22) M/mm3 Hgb 11.9 (11.2-15.7) gm/dl Hct 37.6 (34.1-44.9) % MCV 86.8 (79.4-94.8) fl MCH 27.5 (25.6-32.2) pg MCHC 31.6 L (32.2-35.5) g/dl RDW Std Deviation 43.4 (36.4-46.3) fL Plt Count 275 (182-369) K/mm3 MPV 9.7 (9.4-12.3) fl Neut % (Auto) 72.3 H (34.0-71.1) % Lymph % (Auto) 17.8 L (19.3-51.7) % [place] % (Auto) 9.2 (4.7-12.5) % Eos % (Auto) 0.1 L (0.7-5.8) Baso % (Auto) 0.3 (0.1-1.2) % Neut # (Auto) 5.24 (1.56-6.13) K/mm3 Lymph # (Auto) 1.29 (1.18-3.74) K/mm3 [place] # (Auto) 0.67 H (0.24-0.36) K/mm3 Eos # (Auto) 0.01 L (0.04-0.36) K/mm3 Baso # (Auto) 0.02 (0.01-0.08) K/mm3 Manual Slide Review D-Dimer, Quantitative (0.19-0.50) mg/L Sodium (136-145) mEq/L Potassium (3.5-5.1) mEq/L Chloride (98-107) mEq/L Carbon Dioxide (21-32) mEq/L Anion Gap (5-15) BUN (7-18) mg/dL Creatinine (0.55-1.02) mg/dL Est Cr Clr Drug Dosing mL/min Estimated GFR (MDRD) (>60) mL/min BUN/Creatinine Ratio (14-18) Glucose (70-99) mg/dL Calcium (8.5-10.1) mg/dL Magnesium (1.8-2.4) mg/dL Total Bilirubin (0.2-1.0) mg/dL AST (15-37) U/L ALT (14-59) U/L Alkaline Phosphatase (46-116) U/L C-Reactive Protein (<1.0) mg/dL Total Protein (6.4-8.2) g/dl Albumin (3.4-5.0) g/dl Globulin gm/dL Albumin/Globulin Ratio (1-2) Result Diagrams: 03/18/21 06:39 03/18/21 06:39 Sepsis Event Note - Evaluation Sepsis Screening Result: Possible Sepsis Risk - Focused Exam Vital Signs: Vital Signs Temp Pulse Resp BP Pulse Ox Pulse Ox 03/18/21 05:32 36.6 C 69 24 H 111/53 L 96 03/17/21 20:57 36.7 C 100 20 143/70 H 90 L 03/17/21 20:29 96 - Problem List & Annotations (1) Acute respiratory failure SNOMED Code(s): 92554169 Code(s): J96.00 - ACUTE RESPIRATORY FAILURE, UNSP W HYPOXIA OR HYPERCAPNIA Status: Acute Priority: High Current Visit: Yes Qualifiers: Respiratory failure complication: hypoxia Qualified Code(s): J96.01 - Acute respiratory failure with hypoxia (2) Pneumonia due to COVID-19 virus SNOMED Code(s): 578932453044580508 Code(s): U07.1 - COVID-19; J12.82 - PNEUMONIA DUE TO CORONAVIRUS DISEASE 2019 Status: Acute Priority: High Current Visit: Yes - Problem List Review Problem List Initiated/Reviewed/Updated: Yes - My Orders Last 24 Hours: My Active Orders 03/17/21 Breakfast Regular Diet [DIET] 03/17/21 09:00 cefTRIAXone [Rocephin] 2 gm Sodium Chloride 0.9% [Normal Saline] 100 ml IV Q24H dexAMETHasone 6 mg PO DAILY 03/17/21 17:45 Remdesivir 100 mg Sodium Chloride 0.9% [Normal Saline] 100 ml IV Q24H 03/17/21 19:33 Codeine/guaiFENesin [Robitussin AC] 5 ml PO Q4H PRN 03/17/21 22:29 Pulse Oximetry Continuous Monitoring [OM.PC] Routine 03/18/21 06:39 C-REACTIVE PROTEIN [CHEM] AM CBC WITH AUTO DIFF [HEME] AM COMPREHENSIVE METABOLIC PN,CMP [CHEM] AM MAGNESIUM [CHEM] AM - Assessment Assessment:: The patient is a 36-year-old lady who has been admitted as an inpatient due to COVID-19 pneumonia. She will continue as an inpatient at least until completion of remdesivir. Steroids consisting of dexamethasone 6 mg daily p.o. we will continue for at least 10 days. The patient has been instructed in the use of incentive spirometer and the Acapella. The patient's oxygen to be titrated to keep her oxygen saturations around 92%. Respiratory therapy has been working with the patient. The patient's previously noted hypokalemia has been resolved. Repeat laboratory testings have been ordered. She has had an elevated CRP and this will be repeated tomorrow. She has been encouraged to ambulate in the room. She is also on DVT prophylaxis due to elevated D-dimer. Continue with current diet as tolerated. 03/18/2021 The patient is a 36-year-old lady who was admitted secondary to COVID-19 pneumonia. The patient has been placed on remdesivir. Continue with dexamethasone 6 mg p.o. daily. Oxygen to continue to keep her saturations ar ound 92%. The patient also has ordered as needed codeine with Phenergan for her cough suppression. Repeat laboratory studies have been ordered. The patient is on DVT prophylaxis with the use of Lovenox 40 mg subcutaneous daily. The patient has been instructed in the use of the Acapella and incentive spirometer however this will lead to her having paroxysmal coughing. The patient should be appropriate for discharge once her oxygen demands have improved and she has completed remdesivir. - Plan Plan:: The patient is a 36-year-old lady who had failed outpatient treatment for her COVID-19. The patient does have evidence of pneumonia presently and she has also been admitted secondary to acute respiratory failure. The patient's pulse oximetry will be kept around 92% with oxygen titrated to achieve this. The patient will have her potassium replaced. She is on IV fluids normal saline at 75 mL/h. The patient had been started on remdesivir in the emergency department. The patient will also be started on remdesivir 100 mg IV daily starting tomorrow. She is also on dexamethasone which will be 6 mg p.o. starting tomorrow. DVT prophylaxis will be achieved with the use of 40 mg of Lovenox subcutaneously daily. The patient's nausea will also be addressed with Zofran 4 mg p.o. or IV every 4 hours as needed. Repeat laboratory studies have been ordered for the morning. The patient has regular diet as tolerated. She is also being instructed on the use of the Acapella and incentive spirometer. Patient should be appropriate for discharge upon completion of remdesivir.
[2021-03-18] MEDS: Albuterol 6.7 GM Inhaler INH PRN (08:16)
[2021-03-18] MEDS: cefTRIAXone 2 GM in Sodium Chloride 0.9% 100 ML IV SCH (08:28)
[2021-03-18] MEDS: Dexamethasone 4 MG Tab PO SCH (08:28)
[2021-03-18] MEDS: Enoxaparin 40 MG/0.4 ML Syringe SUBCUT SCH (08:29)
[2021-03-18] MEDS: Codeine/guaiFENesin 10-100 MG/5 ML Syrup 5 ML Cup PO PRN ×4 (08:41→21:16)
[2021-03-18] MEDS: REMDESIVIR 100 MG in Sodium Chloride 0.9% 100 ML IV SCH (17:31)
[2021-03-18] MEDS: Acetaminophen 325 MG Tab PO PRN (17:32)
--- NOTE | 2021-03-18 17:57 | CR ---
Chest: Portable view of the chest was obtained. Comparison: Prior chest CT study of 03/10/21, no prior chest x-ray is available. Diffuse increased density is seen within both sides of the chest. Findings have increased from previous chest CT. Heart size and mediastinum are normal. Bony structures show nothing acute. Impression: 1. Increasing density on both sides of the chest which most likely represents worsening Covid pneumonia. Diagnostic code #3
[2021-03-18] MEDS: Temazepam 15 MG Cap PO PRN (21:16)
[2021-03-18] MEDS: Benzonatate 100 MG Cap PO SCH (23:50)
[2021-03-19] MEDS: Benzonatate 100 MG Cap PO SCH ×2 (07:39→14:26)
[2021-03-19] MEDS: Albuterol 6.7 GM Inhaler INH PRN ×2 (07:42→14:58)
[2021-03-19] MEDS: cefTRIAXone 2 GM in Sodium Chloride 0.9% 100 ML IV SCH (08:16)
[2021-03-19] MEDS: Dexamethasone 4 MG Tab PO SCH (08:19)
[2021-03-19] MEDS: Enoxaparin 40 MG/0.4 ML Syringe SUBCUT SCH (08:20)
[2021-03-19] MEDS: Codeine/guaiFENesin 10-100 MG/5 ML Syrup 5 ML Cup PO PRN ×3 (09:33→20:53)
--- NOTE | 2021-03-19 09:36 | CR ---
Chest: Portable view of the chest was obtained. Comparison: Prior chest x-ray of 03/16/21. Patchy increased densities are seen on both sides of the chest. Findings have worsened within the right chest from prior study. Findings within the left chest are stable. Heart size and mediastinum are unchanged. Bony structures show nothing acute. Impression: 1. Increasing densities within the right chest from prior chest x-ray compatible with worsening Covid pneumonia. 2. Stable Covid pneumonia within the left chest is seen. Diagnostic code #3
--- NOTE | 2021-03-19 09:56 | PCM.PN ---
- General Info Date of Service: 03/19/21 Admission Dx/Problem (Free Text): Admission Diagnosis/Problem Admission Diagnosis/Problem Pneumonia in infectious disease Subjective Update: Patient is now on RA, today is last day of remdesivir. Functional Status: Reports: Pain Controlled, Tolerating Diet, Ambulating - Review of Systems General: Reports: No Symptoms HEENT: Reports: No Symptoms Pulmonary: Reports: Shortness of Breath, Cough Cardiovascular: Reports: No Symptoms Gastrointestinal: Reports: No Symptoms Musculoskeletal: Reports: No Symptoms Skin: Reports: No Symptoms Neurological: Reports: No Symptoms Psychiatric: Reports: No Symptoms - Patient Data Vitals - Most Recent: Last Vital Signs Temp 98.2 F 03/19/21 07:29 Pulse 57 L 03/19/21 07:29 Resp 18 03/19/21 07:29 BP 144/85 H 03/19/21 07:29 Pulse Ox 96 03/19/21 07:42 Weight - Most Recent: 224 lb 4.8 oz I&O - Last 24 Hours: Intake & Output 03/18/21 03/19/21 03/19/21 22:59 06:59 14:59 Intake Total 1450 800 Output Total 900 650 Balance 550 150 Lab Results Last 24 Hours: Laboratory Results - last 24 hr 03/19/21 03/19/21 Range/Units 04:36 04:36 WBC 8.16 (3.98-10.04) K/mm3 RBC 4.35 (3.98-5.22) M/mm3 Hgb 11.9 (11.2-15.7) gm/dl Hct 37.6 (34.1-44.9) % MCV 86.4 (79.4-94.8) fl MCH 27.4 (25.6-32.2) pg MCHC 31.6 L (32.2-35.5) g/dl RDW Std Deviation 43.0 (36.4-46.3) fL Plt Count 305 (182-369) K/mm3 MPV 10.0 (9.4-12.3) fl Neut % (Auto) 70.0 (34.0-71.1) % Lymph % (Auto) 20.3 (19.3-51.7) % [place] % (Auto) 8.8 (4.7-12.5) % Eos % (Auto) 0.4 L (0.7-5.8) Baso % (Auto) 0.1 (0.1-1.2) % Neut # (Auto) 5.71 (1.56-6.13) K/mm3 Lymph # (Auto) 1.66 (1.18-3.74) K/mm3 [place] # (Auto) 0.72 H (0.24-0.36) K/mm3 Eos # (Auto) 0.03 L (0.04-0.36) K/mm3 Baso # (Auto) 0.01 (0.01-0.08) K/mm3 Manual Slide Review Normal smear Sodium 143 (136-145) mEq/L Potassium 3.9 (3.5-5.1) mEq/L Chloride 106 (98-107) mEq/L Carbon Dioxide 24 (21-32) mEq/L Anion Gap 16.9 H (5-15) BUN 9 (7-18) mg/dL Creatinine 0.6 (0.55-1.02) mg/dL Est Cr Clr Drug Dosing 130.76 mL/min Estimated GFR (MDRD) > 60 (>60) mL/min BUN/Creatinine Ratio 15.0 (14-18) Glucose 143 H (70-99) mg/dL Calcium 8.5 (8.5-10.1) mg/dL Total Bilirubin 0.3 (0.2-1.0) mg/dL AST 19 (15-37) U/L ALT 29 (14-59) U/L Alkaline Phosphatase 60 (46-116) U/L C-Reactive Protein 2.8 H* (<1.0) mg/dL Total Protein 6.9 (6.4-8.2) g/dl Albumin 2.7 L (3.4-5.0) g/dl Globulin 4.2 gm/dL Albumin/Globulin Ratio 0.6 L (1-2) Med Orders - Current: Current Medications Acetaminophen (Acetaminophen 325 Mg Tab) 650 mg PO Q4H PRN PRN Reason: Pain (Mild 1-3)/fever Last Admin: 03/18/21 17:32 Dose: 650 mg Documented by: Albuterol (Albuterol 6.7 Gm Inhaler) 0 gm INH Q4H PRN PRN Reason: SOB/WHEEZING Last Admin: 03/19/21 07:42 Dose: 2 puff Documented by: Albuterol/Ipratropium (Albuterol/Ipratropium 3.0-0.5 Mg/3 Ml Neb Soln) 3 ml NEB Q4H PRN PRN Reason: Shortness Of Breath/wheezing Benzonatate (Benzonatate 100 Mg Cap) 100 mg PO TID@0700,1500,2300 [facility] Last Admin: 03/19/21 07:39 Dose: 100 mg Documented by: Dexamethasone (Dexamethasone 4 Mg Tab) 6 mg PO DAILY [facility] Last Admin: 03/19/21 08:19 Dose: 6 mg Documented by: Docusate Sodium (Docusate Sodium 100 Mg Cap) 100 mg PO BID PRN PRN Reason: Constipation Enoxaparin Sodium (Enoxaparin 40 Mg/0.4 Ml Syringe) 40 mg SUBCUT DAILY [facility] Last Admin: 03/19/21 08:20 Dose: 40 mg Documented by: Guaifenesin/Codeine Phosphate (Codeine/Guaifenesin 10-100 Mg/5 Ml Syrup 5 Ml Cup) 5 ml PO Q4H PRN PRN Reason: Cough Last Admin: 03/19/21 09:33 Dose: 5 ml Documented by: Remdesivir 100 mg/ Sodium (Chloride) 100 mls @ 100 mls/hr IV Q24H [facility] Stop: 03/20/21 18:44 Last Admin: 03/18/21 17:31 Dose: 100 mls/hr Documented by: Ceftriaxone Sodium 2 gm/ (Sodium Chloride) 100 mls @ 200 mls/hr IV Q24H [facility] Last Admin: 03/19/21 08:16 Dose: 200 mls/hr Documented by: Ondansetron HCl (Ondansetron 4 Mg Tab.Dis) 4 mg PO Q4H PRN PRN Reason: nausea, able to take PO Ondansetron HCl (Ondansetron 4 Mg/2 Ml Sdv) 4 mg IV Q4H PRN PRN Reason: Nausea/Vomiting Oxycodone HCl (Oxycodone 5 Mg Tab) 5 mg PO Q4H PRN PRN Reason: Pain (moderate 4-6) Sodium Chloride (Sodium Chloride 0.9% 10 Ml Syringe) 10 ml FLUSH ASDIRECTED PRN PRN Reason: Keep Vein Open Last Admin: 03/16/21 16:28 Dose: 10 ml Documented by: Temazepam (Temazepam 15 Mg Cap) 15 mg PO BEDTIME PRN PRN Reason: Sleep Last Admin: 03/18/21 21:16 Dose: 15 mg Documented by: Discontinued Medications Dexamethasone (Dexamethasone 10 Mg/Ml Sdv) 6 mg IVPUSH ONETIME ONE Stop: 03/16/21 16:15 Last Admin: 03/16/21 16:28 Dose: 6 mg Documented by: Remdesivir 200 mg/ Sodium (Chloride) 250 mls @ 250 mls/hr IV ONETIME ONE Stop: 03/16/21 16:15 Last Admin: 03/16/21 16:28 Dose: 250 mls/hr Documented by: Sodium Chloride (Normal Saline) 1,000 mls @ 75 mls/hr IV ASDIRECTED [place] Last Admin: 03/17/21 08:03 Dose: 75 mls/hr Documented by: Ceftriaxone Sodium 2 gm/ (Sodium Chloride) 100 mls @ 200 mls/hr IV Q24H [facility] Potassium Chloride (Potassium Chloride 20 Meq Tab.Er) 40 meq PO ONETIME ONE Stop: 03/16/21 17:05 Last Admin: 03/16/21 17:09 Dose: 40 meq Documented by: - Exam General: Alert, Oriented, Cooperative, No Acute Distress Neck: Supple Lungs: Normal Respiratory Effort, Decreased Breath Sounds Cardiovascular: Regular Rate, Regular Rhythm GI/Abdominal Exam: Normal Bowel Sounds, Soft, No Distention Extremities: Normal Inspection, Normal Range of Motion Skin: Warm Wound/Incisions: Healing Well Neurological: No New Focal Deficit Psy/Mental Status: Alert, Normal Affect, Normal Mood - Patient Data Lab Results Last 24 hrs: Laboratory Results - last 24 hr 03/19/21 03/19/21 Range/Units 04:36 04:36 WBC 8.16 (3.98-10.04) K/mm3 RBC 4.35 (3.98-5.22) M/mm3 Hgb 11.9 (11.2-15.7) gm/dl Hct 37.6 (34.1-44.9) % MCV 86.4 (79.4-94.8) fl MCH 27.4 (25.6-32.2) pg MCHC 31.6 L (32.2-35.5) g/dl RDW Std Deviation 43.0 (36.4-46.3) fL Plt Count 305 (182-369) K/mm3 MPV 10.0 (9.4-12.3) fl Neut % (Auto) 70.0 (34.0-71.1) % Lymph % (Auto) 20.3 (19.3-51.7) % [place] % (Auto) 8.8 (4.7-12.5) % Eos % (Auto) 0.4 L (0.7-5.8) Baso % (Auto) 0.1 (0.1-1.2) % Neut # (Auto) 5.71 (1.56-6.13) K/mm3 Lymph # (Auto) 1.66 (1.18-3.74) K/mm3 [place] # (Auto) 0.72 H (0.24-0.36) K/mm3 Eos # (Auto) 0.03 L (0.04-0.36) K/mm3 Baso # (Auto) 0.01 (0.01-0.08) K/mm3 Manual Slide Review Normal smear Sodium 143 (136-145) mEq/L Potassium 3.9 (3.5-5.1) mEq/L Chloride 106 (98-107) mEq/L Carbon Dioxide 24 (21-32) mEq/L Anion Gap 16.9 H (5-15) BUN 9 (7-18) mg/dL Creatinine 0.6 (0.55-1.02) mg/dL Est Cr Clr Drug Dosing 130.76 mL/min Estimated GFR (MDRD) > 60 (>60) mL/min BUN/Creatinine Ratio 15.0 (14-18) Glucose 143 H (70-99) mg/dL Calcium 8.5 (8.5-10.1) mg/dL Total Bilirubin 0.3 (0.2-1.0) mg/dL AST 19 (15-37) U/L ALT 29 (14-59) U/L Alkaline Phosphatase 60 (46-116) U/L C-Reactive Protein 2.8 H* (<1.0) mg/dL Total Protein 6.9 (6.4-8.2) g/dl Albumin 2.7 L (3.4-5.0) g/dl Globulin 4.2 gm/dL Albumin/Globulin Ratio 0.6 L (1-2) Result Diagrams: 03/19/21 04:36 03/19/21 04:36 Sepsis Event Note - Evaluation Sepsis Screening Result: No Definite Risk - Focused Exam Vital Signs: Vital Signs Temp Pulse Resp BP Pulse Ox Pulse Ox 03/19/21 07:42 96 03/19/21 07:29 98.2 F 57 L 18 144/85 H 95 03/19/21 06:22 90 L 03/19/21 04:29 98.1 F 62 18 122/66 94 L Skin Exam (Focused Sepsis): Normal Turgor - Problem List Review Problem List Initiated/Reviewed/Updated: Yes - Assessment Assessment:: 36yof with COVID-19 pneumonia. Started remdesivir, dexamethasone 6 mg daily x 10 days. Incentive spirometer,Acapella, oxygen titrated 90-92% , Respiratory therapy, hypokalemia resolved, elevated CRP and repeated tomorrow, encouraged to ambulate in the room,DVT prophylaxis due to elevated D-dimer. Continue with current diet as tolerated. 03/18/2021 36yof COVID-19 pneumonia.m cont remdesivir. dexamethasone 6 mg p.o. daily. oxygen, codeine with Phenergan for her cough suppression. Repeat laboratory studies have been ordered. The patient is on DVT prophylaxis with the use of Lovenox 40 mg subcutaneous daily. The patient has been instructed in the use of the Acapella and incentive spirometer however this will lead to her having paroxysmal coughing. The patient should be appropriate for discharge once her oxygen demands have improved and she has completed remdesivir. Covid pneumonia- 03/19/21 cont remdesivir, Tessalon perles, Rocephin, dex, Mucinex, crp has dramatically reduced pending lactic, daily labs, gap elevated 16.9 -lactate returned to 2.9,This is not sepsis, likely multifactorial, respiratory acidosis, mild elevated glucose from the dexamethasone. , cont fluids at 75/hr, repeat lab in am. possible home tomorrow, presently on RA Cough- 03/19/21 tesslon, mucinex, codinem oxycodone insomnia- 03/19/21 temazapam dvt ppx- lovenox, dimer is elevated at admission - Plan Plan:: The patient is a 36-year-old lady who had failed outpatient treatment for her COVID-19. The patient does have evidence of pneumonia presently and she has al so been admitted secondary to acute respiratory failure. The patient's pulse oximetry will be kept around 92% with oxygen titrated to achieve this. The patient will have her potassium replaced. She is on IV fluids normal saline at 75 mL/h. The patient had been started on remdesivir in the emergency department. The patient will also be started on remdesivir 100 mg IV daily starting tomorrow. She is also on dexamethasone which will be 6 mg p.o. starting tomorrow. DVT prophylaxis will be achieved with the use of 40 mg of Lovenox subcutaneously daily. The patient's nausea will also be addressed with Zofran 4 mg p.o. or IV every 4 hours as needed. Repeat laboratory studies have been ordered for the morning. The patient has regular diet as tolerated. She is also being instructed on the use of the Acapella and incentive spirometer. Patient should be appropriate for discharge upon completion of remdesivir.
[2021-03-19] MEDS ORDERED: Sodium Chloride 0.9% 1,000 ML IV SCH (11:30)
[2021-03-19] MEDS ORDERED: Pantoprazole 40 MG Tab.CR PO STA (12:05)
[2021-03-19] MEDS: Acetaminophen 325 MG Tab PO PRN (13:44)
[2021-03-19] MEDS: REMDESIVIR 100 MG in Sodium Chloride 0.9% 100 ML IV SCH (16:51)
[2021-03-20] MEDS: Benzonatate 100 MG Cap PO SCH ×3 (00:20→15:43)
[2021-03-20] MEDS ORDERED: Pantoprazole 40 MG Tab.CR PO SCH (06:00)
[2021-03-20] MEDS: Dexamethasone 4 MG Tab PO SCH (08:48)
[2021-03-20] MEDS: Codeine/guaiFENesin 10-100 MG/5 ML Syrup 5 ML Cup PO PRN ×2 (08:48→15:43)
[2021-03-20] MEDS: Enoxaparin 40 MG/0.4 ML Syringe SUBCUT SCH (08:48)
[2021-03-20] MEDS: cefTRIAXone 2 GM in Sodium Chloride 0.9% 100 ML IV SCH (08:49)
--- NOTE | 2021-03-20 09:01 | PCM.DCSUM1 ---
Discharge Summary - Hospital Course Free Text/Narrative:: 36yof with COVID-19 pneumonia. Started remdesivir, dexamethasone 6 mg daily x 10 days. Incentive spirometer,Acapella, oxygen titrated 90-92% , Respiratory therapy, 03/18/2021 36yof COVID-19 pneumonia.m cont remdesivir. dexamethasone 6 mg p.o. daily. oxygen, codeine with Phenergan for her cough suppression. Repeat laboratory studies have been ordered. The patient is on DVT prophylaxis with the use of Lovenox 40 mg subcutaneous daily. The patient has been instructed in the use of the Acapella and incentive spirometer however this will lead to her having paroxysmal coughing. The patient should be appropriate for discharge once her oxygen demands have improved and she has completed remdesivir. Covid pneumonia- 03/19/21 cont remdesivir, Tessalon perles, Rocephin, dex, Mucinex, crp has dramatically reduced pending lactic, daily labs, gap elevated 16.9 -lactate returned to 2.9,This is not sepsis, likely multifactorial, respiratory acidosis, mild elevated glucose from the dexamethasone. , cont fluids at 75/hr, repeat lab in am. possible home tomorrow, presently on RA 03/20 lactic normalized, cont on RA, ready to dc home Cough- 03/19/21 tesslon, mucinex, codinem oxycodone 03/20 resolved insomnia- 03/19/21 temazapam dvt ppx- lovenox, dimer is elevated at admission full code, time 36 min HPI Initial Comments: 36 yof with new dx of covid pneumonia and was admitted for acute respiratory failure with hypoxia Diagnosis: Stroke: No Modified [place] Scale: No Symptoms at All Modified [place] Scale Score: 0 - Discharge Data Discharge Date: 03/20/21 Discharge Disposition: Home, Self-Care 01 Condition: Good - Referral to Home Health Primary Care Physician: PCP None - Patient Instructions Diet: Regular Diet as Tolerated Activity: As Tolerated Driving: May Drive Today Showering/Bathing: May Shower - Discharge Plan *PRESCRIPTION DRUG MONITORING PROGRAM REVIEWED*: Not Applicable *COPY OF PRESCRIPTION DRUG MONITORING REPORT IN PATIENT EMILY: Not Applicable Home Medications: Home Meds Omeprazole 20 mg PO DAILY 11/09/17 [History] Albuterol Sulfate [Proair Hfa] 2 puff INH QID 03/16/21 [History] Benzonatate [Tessalon Perle] 100 mg PO Q6HR 03/16/21 [History] Codeine/guaiFENesin [Robitussin AC] 5 ml PO ASDIRECTED 03/16/21 [History] ondansetron HCL [Zofran] 4 mg PO ASDIRECTED 03/16/21 [History] Oxygen Therapy Mode: Room Air Patient Handouts: COVID-19 Forms: ED Department Discharge Referrals: Linda Vazquez MD [Ordering Only Provider] - 04/04/21 9:45 am (check in at 9:45 please arrive, this is follow up hospital visit, you will have to make another appt. for establishing care with Provider of your choice.) - Discharge Summary/Plan Comment DC Time >30 min.: Yes Total # of Minutes for Discharge Time: 36min Discharge Summary/Plan Comment: As stated above under hospital course. Patient will dc home and follow up in one week with pcp. Verbally agreed and understood - Patient Data Vitals - Most Recent: Last Vital Signs Temp 97.9 F 03/20/21 08:13 Pulse 86 03/20/21 08:13 Resp 20 03/20/21 08:13 BP 133/73 03/20/21 08:13 Pulse Ox 94 L 03/20/21 08:13 Weight - Most Recent: 225 lb 12.8 oz I&O - Last 24 hours: Intake & Output 03/19/21 03/20/21 03/20/21 22:59 06:59 14:59 Intake Total 1690 1350 Output Total 1800 1000 Balance -110 350 Lab Results - Last 24 hrs: Laboratory Results - last 24 hr 03/19/21 03/19/21 03/20/21 Range/Units 10:25 16:45 06:20 WBC 9.20 (3.98-10.04) K/mm3 RBC 4.41 (3.98-5.22) M/mm3 Hgb 12.1 (11.2-15.7) gm/dl Hct 38.0 (34.1-44.9) % MCV 86.2 (79.4-94.8) fl MCH 27.4 (25.6-32.2) pg MCHC 31.8 L (32.2-35.5) g/dl RDW Std Deviation 42.2 (36.4-46.3) fL Plt Count 335 (182-369) K/mm3 MPV 9.4 (9.4-12.3) fl Sodium (136-145) mEq/L Potassium (3.5-5.1) mEq/L Chloride (98-107) mEq/L Carbon Dioxide (21-32) mEq/L Anion Gap (5-15) BUN (7-18) mg/dL Creatinine (0.55-1.02) mg/dL Est Cr Clr Drug Dosing mL/min Estimated GFR (MDRD) (>60) mL/min BUN/Creatinine Ratio (14-18) Glucose (70-99) mg/dL Lactic Acid 2.9 H* 2.1 H* (0.4-2.0) mmol/L Calcium (8.5-10.1) mg/dL 03/20/21 03/20/21 Range/Units 06:20 06:20 WBC (3.98-10.04) K/mm3 RBC (3.98-5.22) M/mm3 Hgb (11.2-15.7) gm/dl Hct (34.1-44.9) % MCV (79.4-94.8) fl MCH (25.6-32.2) pg MCHC (32.2-35.5) g/dl RDW Std Deviation (36.4-46.3) fL Plt Count (182-369) K/mm3 MPV (9.4-12.3) fl Sodium 141 (136-145) mEq/L Potassium 4.0 (3.5-5.1) mEq/L Chloride 105 (98-107) mEq/L Carbon Dioxide 23 (21-32) mEq/L Anion Gap 17.0 H (5-15) BUN 8 (7-18) mg/dL Creatinine 0.7 (0.55-1.02) mg/dL Est Cr Clr Drug Dosing 112.08 mL/min Estimated GFR (MDRD) > 60 (>60) mL/min BUN/Creatinine Ratio 11.4 L (14-18) Glucose 123 H (70-99) mg/dL Lactic Acid 1.5 (0.4-2.0) mmol/L Calcium 8.2 L (8.5-10.1) mg/dL Med Orders - Current: Current Medications Acetaminophen (Acetaminophen 325 Mg Tab) 650 mg PO Q4H PRN PRN Reason: Pain (Mild 1-3)/fever Last Admin: 03/19/21 13:44 Dose: 650 mg Documented by: Albuterol (Albuterol 6.7 Gm Inhaler) 0 gm INH Q4H PRN PRN Reason: SOB/WHEEZING Last Admin: 03/19/21 14:58 Dose: 2 puff Documented by: Albuterol/Ipratropium (Albuterol/Ipratropium 3.0-0.5 Mg/3 Ml Neb Soln) 3 ml NEB Q4H PRN PRN Reason: Shortness Of Breath/wheezing Benzonatate (Benzonatate 100 Mg Cap) 100 mg PO TID@0700,1500,2300 [facility] Last Admin: 03/20/21 07:10 Dose: Not Given Documented by: Dexamethasone (Dexamethasone 4 Mg Tab) 6 mg PO DAILY [facility] Last Admin: 03/20/21 08:48 Dose: 6 mg Documented by: Docusate Sodium (Docusate Sodium 100 Mg Cap) 100 mg PO BID PRN PRN Reason: Constipation Enoxaparin Sodium (Enoxaparin 40 Mg/0.4 Ml Syringe) 40 mg SUBCUT DAILY [facility] Last Admin: 03/20/21 08:48 Dose: 40 mg Documented by: Guaifenesin/Codeine Phosphate (Codeine/Guaifenesin 10-100 Mg/5 Ml Syrup 5 Ml Cup) 5 ml PO Q4H PRN PRN Reason: Cough Last Admin: 03/20/21 08:48 Dose: 5 ml Documented by: Remdesivir 100 mg/ Sodium (Chloride) 100 mls @ 100 mls/hr IV Q24H [facility] Stop: 03/20/21 18:44 Last Admin: 03/19/21 16:51 Dose: 100 mls/hr Documented by: Ceftriaxone Sodium 2 gm/ (Sodium Chloride) 100 mls @ 200 mls/hr IV Q24H [facility] Last Admin: 03/20/21 08:49 Dose: 200 mls/hr Documented by: Ondansetron HCl (Ondansetron 4 Mg Tab.Dis) 4 mg PO Q4H PRN PRN Reason: nausea, able to take PO Ondansetron HCl (Ondansetron 4 Mg/2 Ml Sdv) 4 mg IV Q4H PRN PRN Reason: Nausea/Vomiting Oxycodone HCl (Oxycodone 5 Mg Tab) 5 mg PO Q4H PRN PRN Reason: Pain (moderate 4-6) Last Admin: 03/19/21 15:05 Dose: 5 mg Documented by: Pantoprazole Sodium (Pantoprazole 40 Mg Tab.Cr) 40 mg PO ACBREAKFAST [facility] Last Admin: 03/20/21 07:10 Dose: Not Given Documented by: Sodium Chloride (Sodium Chloride 0.9% 10 Ml Syringe) 10 ml FLUSH ASDIRECTED PRN PRN Reason: Keep Vein Open Last Admin: 03/16/21 16:28 Dose: 10 ml Documented by: Temazepam (Temazepam 15 Mg Cap) 15 mg PO BEDTIME PRN PRN Reason: Sleep Last Admin: 03/18/21 21:16 Dose: 15 mg Documented by: Discontinued Medications Dexamethasone (Dexamethasone 10 Mg/Ml Sdv) 6 mg IVPUSH ONETIME ONE Stop: 03/16/21 16:15 Last Admin: 03/16/21 16:28 Dose: 6 mg Documented by: Remdesivir 200 mg/ Sodium (Chloride) 250 mls @ 250 mls/hr IV ONETIME ONE Stop: 03/16/21 16:15 Last Admin: 03/16/21 16:28 Dose: 250 mls/hr Documented by: Sodium Chloride (Normal Saline) 1,000 mls @ 75 mls/hr IV ASDIRECTED [facility] Last Admin: 03/17/21 08:03 Dose: 75 mls/hr Documented by: Ceftriaxone Sodium 2 gm/ (Sodium Chloride) 100 mls @ 200 mls/hr IV Q24H [facility] Sodium Chloride (Normal Saline) 1,000 mls @ 75 mls/hr IV ASDIRECTED [facility] Last Admin: 03/19/21 11:56 Dose: 75 mls/hr Documented by: Pantoprazole Sodium (Pantoprazole 40 Mg Tab.Cr) 40 mg PO NOW STA Stop: 03/19/21 12:06 Last Admin: 03/19/21 12:30 Dose: 40 mg Documented by: Potassium Chloride (Potassium Chloride 20 Meq Tab.Er) 40 meq PO ONETIME ONE Stop: 03/16/21 17:05 Last Admin: 03/16/21 17:09 Dose: 40 meq Documented by:
[2021-03-20] MEDS: Albuterol 6.7 GM Inhaler INH PRN (10:11)
[2021-03-20] MEDS ORDERED: REMDESIVIR 100 MG in Sodium Chloride 0.9% 100 ML IV SCH (16:00)
== END 2021-03-20 15:53 | disposition home or self-care (01) | DRG 177 ==
LOC: SUPCPDRO 15:37 → JD.ED 15:37 → JD.MS 17:42
PROVIDERS: ADMIT Internal Medicine; ATTEND Internal Medicine
PROC: XW033E5 Introduction of Remdesivir Anti-infective into Peripheral Vein, Percutaneous Approach, New Technology Group 5 (ICD-10-PCS; principal; 2021-03-16)
PROC: 3E0333Z Introduction of Anti-inflammatory into Peripheral Vein, Percutaneous Approach (ICD-10-PCS; 2021-03-16)
PROC: 8E0ZXY6 Isolation (ICD-10-PCS; 2021-03-16)
DX: U07.1 COVID-19 (principal); J12.82 Pneumonia due to coronavirus disease 2019; J96.01 Acute respiratory failure with hypoxia; G47.00 Insomnia, unspecified; H54.7 Unspecified visual loss; E87.6 Hypokalemia; Z79.899 Other long term (current) drug therapy; Z90.49 Acquired absence of other specified parts of digestive tract
CPT/HCPCS: 36415; 71045; 71045-26; 80048; 80053; 83605; 83735; 85025; 85027; 85379; 85610; 85730; 86140; 94640; 94667; 94668; 94762; 96374; 99284; 99285-25; A9270-GY; J0696; J1100; J1650; J7030; J7050; J8540